=== PATIENT | female | born 1935 | race Caucasian/White ===

== ENCOUNTER 2019-03-28 12:55 | Outpatient (CLI) | payer BC, SELFPAY ==
--- NOTE | 2019-03-28 13:08 | USCV_ITS ---
Ansley Freitas Age: 83 Gender: F : 1935 Exam Date: 03/28/2019 13:08 Ordering Phys: Filemon Rodriguez DPM Technologist: Exam Location: [facility] [place] Indication: PVD RIGHT LEFT Brachial 157.00 mmHg Brachial 149.00 mmHg Pressure (mmHg) Waveform Pressure (mmHg) Waveform 168.00 Above Knee 174.00 187.00 Below Knee 207.00 180.00 RECORDS MANAGER 192.00 167.00 DPA 176.00 1.15 Ankle/Brachial Index 1.22 107.00 Pre-Exercise Toe Pressure 159.00 0.68 Pre-Exercise Toe/Brachial Index 1.01 FINDINGS Normal resting ABIs bilaterally Minimally diminished resting TBI on the right side Normal resting TBI on the left side PVR waveforms showing blunting of the dicrotic notch bilaterally CONCLUSIONS 1. Features of mild peripheral artery disease on the right side 2. No significant arterial obstruction on the left side 3. Abnormal PVR waveforms, may suggest extensive arterial sclerosis Dr Akira Hutchison MD FAC (Electronically Signed) Final Date: 29 March 2019 17:55 S
== END 2019-03-28 12:56 | disposition home or self-care (01) ==
LOC: RAD 13:01
PROVIDERS: Family Provider Family Medicine; PCP Family Medicine; Visit Provider Podiatrist Foot & Ankle Surgery
DX: I73.9 Peripheral vascular disease, unspecified (principal)
CPT/HCPCS: 93923

== ENCOUNTER → 2019-04-02 10:43 | Outpatient (BNVA) | payer BC, SELFPAY | PROVIDERS: Family Provider Family Medicine; PCP Family Medicine; Visit Provider Family Medicine | DX: R74.8 Abnormal levels of other serum enzymes (principal) | CPT/HCPCS: 80076 ==

== ENCOUNTER → 2019-04-03 13:07 | Outpatient (BNVA) | payer BC, SELFPAY | PROVIDERS: Family Provider Family Medicine; PCP Family Medicine; Visit Provider Family Medicine | DX: R74.8 Abnormal levels of other serum enzymes (principal) | CPT/HCPCS: 86705; 86706; 86709; 86803; 87340 ==

== ENCOUNTER 2019-04-04 06:57 | Outpatient (CLI) | payer BC, SELFPAY ==
--- NOTE | 2019-04-04 07:15 | US_ITS ---
WS: [id number] RIGHT UPPER QUADRANT ULTRASOUND HISTORY: ABNORMAL LIVER ENZYMES COMPARISON: 09/28/2011 Liver: 17.7 cm in length. Normal size and echogenicity with no intrahepatic dilatation. No mass. Gallbladder: Normally distended gallbladder with no stones or wall thickening. CBD: 3.4 mm Pancreas: Poorly visualized. Right kidney: 9.9 cm in length. Normal size kidney. Slight increased echogenicity import cortical med ullary differentiation. There is at least one cyst in the central renal pelvis. Suspect additional sm aller cortical cysts also. The largest measures 1.4 x 2.3 cm. Aorta and IVC: Unremarkable. No ascites. US/US liver [id number] IMPRESSION: 1. Normal gallbladder. 2. RIGHT renal cyst with a maximum diameter of 2.3 cm. 3. Mild chronic medical renal disease, RIGHT kidney.
== END 2019-04-04 06:58 | disposition home or self-care (01) ==
LOC: RAD 07:05
PROVIDERS: Family Provider Family Medicine; PCP Family Medicine; Visit Provider Family Medicine
DX: N18.9 Chronic kidney disease, unspecified (principal); N28.1 Cyst of kidney, acquired; R74.8 Abnormal levels of other serum enzymes
CPT/HCPCS: 76705

== ENCOUNTER → 2019-04-16 10:25 | Outpatient (BNVA) | payer BC, SELFPAY | PROVIDERS: Family Provider Family Medicine; PCP Family Medicine; Visit Provider Family Medicine | DX: R74.8 Abnormal levels of other serum enzymes (principal) | CPT/HCPCS: 80076 ==

== ENCOUNTER → 2019-05-23 12:44 | Outpatient (BNVA) | payer MEDICARE, SELFPAY | PROVIDERS: Family Provider Family Medicine; PCP Family Medicine; Visit Provider Family Medicine | DX: R74.8 Abnormal levels of other serum enzymes (principal) | CPT/HCPCS: 80053 ==

== ENCOUNTER → 2019-07-24 12:08 | Outpatient (BNVA) | payer MEDICARE, SELFPAY | PROVIDERS: Family Provider Family Medicine; PCP Family Medicine; Visit Provider Family Medicine | DX: R74.8 Abnormal levels of other serum enzymes (principal) | CPT/HCPCS: 80053 ==

== ENCOUNTER → 2019-09-10 16:43 | Outpatient (BNVA) | payer MEDICARE, SELFPAY | PROVIDERS: Family Provider Family Medicine; PCP Family Medicine; Visit Provider Family Medicine | DX: R89.9 Unspecified abnormal finding in specimens from other organs, systems and tissues (principal); I10 Essential (primary) hypertension; R60.0 Localized edema | CPT/HCPCS: 80053 ==

== ENCOUNTER → 2019-11-06 15:20 | Outpatient (BNVA) | payer MEDICARE, SELFPAY | PROVIDERS: Family Provider Family Medicine; PCP Family Medicine; Visit Provider Nurse Practitioner Women's Health | DX: R30.0 Dysuria (principal) | CPT/HCPCS: 80053; 87077; 87086; 87186 ==

== ENCOUNTER → 2019-12-11 11:17 | Outpatient (BNVA) | payer MEDICARE, SELFPAY | PROVIDERS: Family Provider Family Medicine; PCP Family Medicine; Visit Provider Family Medicine | DX: E11.9 Type 2 diabetes mellitus without complications (principal); E78.5 Hyperlipidemia, unspecified; I10 Essential (primary) hypertension | CPT/HCPCS: 80053; 80061; 83036; 84443; 85025 ==

== ENCOUNTER → 2019-12-17 11:40 | Outpatient (BNVA) | payer MEDICARE, SELFPAY | PROVIDERS: Family Provider Family Medicine; PCP Family Medicine; Visit Provider Family Medicine | DX: R05 Cough (principal) | CPT/HCPCS: 71046 ==

== ENCOUNTER 2020-01-01 21:01 | Observation (INO) | payer MEDICARE, SELFPAY ==
[2020-01-01 21:29] VITALS: BP 142/77; PULSE 76; RESP 18; TEMP 36.4; O2SAT 100; BMI 28.0
--- NOTE | 2020-01-01 21:32 | CTR_ITS ---
PROCEDURE INFORMATION: Exam: CT Head Without Contrast Exam date and time: 01/01/2020 9:35 PM Age: 84 years old Clinical indication: Syncope and collapse TECHNIQUE: Imaging protocol: Computed tomography of the head without contrast. Radiation optimization: All CT scans at this facility use at least one of these dose optimization techniques: automated exposure control; mA and/or kV adjustment per patient size (includes targeted exams where dose is matched to clinical indication); or iterative reconstruction. COMPARISON: No relevant prior studies available. RADIATION DOSE METRICS: Total DLP (mGy-cm): 867.93 FINDINGS: Brain: Normal. No hemorrhage. Unremarkable white matter. No mass effect. Cerebral ventricles: No ventriculomegaly. Bones/joints: Unremarkable. No acute fracture. Paranasal sinuses: Visualized sinuses are unremarkable. No fluid levels. Mastoid air cells: Visualized mastoid air cells are well aerated. Soft tissues: Unremarkable. CT/CT head wo con* [id number] IMPRESSION: Negative for intracranial hemorrhage or mass effect Radiation Dose CTDIVOL = (mGy): DLP = 867.93 (mGy-cm)
--- NOTE | 2020-01-01 21:32 | XRR_ITS ---
PROCEDURE INFORMATION: Exam: XR Chest, 1 View Exam date and time: 01/01/2020 9:59 PM Age: 84 years old Clinical indication: Other: Syncope; Additional info: Syncope-no chest complaints TECHNIQUE: Imaging protocol: XR of the chest Views: 1 view. COMPARISON: CR XR chest 2V* [id number] 12/17/2019 11:47 AM FINDINGS: Lungs: Unremarkable. No consolidation. Pleural space: Unremarkable. No pleural effusion. No pneumothorax. Heart/Mediastinum: Stable heart size. Similar pleural thickening or epicardial fat pad lower left cardiac margin. Vasculature: Calcified thoracic aorta. Bones/joints: Degenerative change of the spine. XR/XR chest 1V portable [id number] IMPRESSION: Stable chest without acute process.
[2020-01-01 21:33] VITALS: BP 123/71; BP 137/74; BP 143/73; PULSE 73; PULSE 74; PULSE 78
--- NOTE | 2020-01-01 21:33 | ECG_ITS ---
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 Measurements Intervals [place] Rate: 71 P: 55 SC: 188 QRS: 37 QRSD: 81 T: 50 QT: 367 QTc: 400 Interpretive Statements SINUS RHYTHM No previous ECG available for comparison Electronically Signed On 01-03-2020 20:37:14 CDT by Telly Mcmahon M.D. [id number]
--- NOTE | 2020-01-01 21:35 | ED_ITS ---
HPI - Syncope General: Chief Complaint: Syncope Stated Complaint: SYNCOPE Time Seen by Provider: 01/01/20 21:27 Source: patient, family and EMS Mode of arrival: EMS Limitations: no limitations History of Present Illness: HPI narrative: Mrs. Freitas is a nice 84-year-old female who comes in complaining of a syncopal episode. Patient states she was at home sitting down at the table and suddenly felt lightheaded and then passed out. Patient did not fall the family observe the incidence and there was no seizure activity. Patient was able to be kept in the seated position but was unconscious for 5 minutes according to the report she received. Since the incident she denies any chest pain, shortness of breath, headache, dizziness, lightheadedness, back pain, abdominal pain or extremity pain. The patient states that she has had numerous syncopal episodes in the past and is never had it evaluated. Patient states that she would not be here now for was not for the insistence of her family. Patient adamantly denies any chest pain, shortness of breath, palpitations or headache. She also denies abdominal pain. Associated symptoms: Deny abdominal pain, chest pain, fever(s), headache(s), lightheadedness, nausea or vertigo Review of Systems Const: Denies: fever(s), chills, body aches, fatigue, malaise or diaphoresis Eyes: Denies: change in vision, blurry vision, photophobia, eye discomfort, eye discharge, eye redness or yellow eyes ENMT: Denies: throat pain, odynophagia, hoarseness, swelling of lips/tongue, ear or mastoid pain, ear discharge, change in hearing or nasal discharge Card: Reports: syncope; Denies: chest pain, palpitations, irregular heart rhythm, edema, lightheadedness, pre-syncope, dyspnea on exertion or orthopnea Resp: Denies: dyspnea, productive cough, non-productive cough, wheezing, hemoptysis or chest congestion GI: Denies: abdominal pain, nausea, vomiting, hematemesis, coffee ground emesis, heartburn, diarrhea, constipation, GI cramping, hematochezia or melena : Denies: flank pain, dysuria, urinary frequency, urinary urgency or hematuria Musc: Denies: neck pain, back pain, extremity pain, extremity swelling, joint pain, joint swelling, joint redness, joint warmth or joint stiffness Skin/Breast: Denies: rash, pruritus, erythema, skin pain or skin tenderness Neuro: Reports: dizziness; Denies: headache(s), numbness in extremities, weakness in extremities, sensory changes, lack of coordination, difficulty walking, vertigo, confusion, Slurred speech present or seizure-like activity William/Lymph: Denies: easy bruising, easy bleeding, petechiae, purpura or enlarged lymph nodes All/Imm: Denies: urticaria, throat swelling, tongue swelling, facial swelling or acute wheezing PFSH ED PFSH: Medical History Acquired hypothyroidism Arteriosclerotic vascular disease Chronic depression Chronic pain syndrome Contact dermatitis Controlled restless legs syndrome Cystocele Diverticulosis Dyslipidemia Esophageal dysmotility Essential (primary) hypertension Fatty liver Hammertoe of right foot Neuropathy Obstructive sleep apnea Parkinson's disease Peripheral arterial disease Prolapse of vaginal vault after hysterectomy Type 2 diabetes mellitus without complications Surgical History H/O ovarian cystectomy (~1959) History of bladder repair surgery (~1999) Ring urethropexy History of hernia repair (~01/2008) History of total hysterectomy (~1969) Diagnosis: Endometriosis Family History Brother CAD (coronary artery disease) Diabetes Father Diabetes Sister No problems noted. Mother Cancer Social History Smoking and tobacco status: never smoked Alcohol intake: never History of recent travel: No Additional social history: - Tobacco use: Denies Alcohol use: Denies Drug use: Denies Physical Exam Const: COMMON NORMALS: no acute distress, patient oriented x3, no limitations and alert GENERAL APPEARANCE: cooperative HENMT: COMMON NORMALS: normocephalic, atraumatic, external ears normal, EAC's normal and Normal external nose present HEAD & SCALP: normal to inspection, normocephalic and atraumatic FACE & SINUS: normal facial exam and face symmetric NOSE: Normal external nose present and Normal nares present EXTERNAL EAR: Yes external ears normal EXTERNAL AUDITORY CANAL: EAC's normal MOUTH: Normal oral and palatal mucosa present, lip normal and tongue normal Eye: COMMON NORMALS: Equal, round and reactive pupils present and conjunctivae normal GENERAL EYE: appearance normal, both eyes and all related structures ALIGNMENT: Yes alignment normal PERIORBITAL: periorbital findings normal EYELID: eyelids normal CONJUNCTIVA: Yes conjunctivae normal SCLERA: sclerae normal PUPIL: Yes Equal, round and reactive pupils present Neck/C-Spine: COMMON NORMALS: full ROM, no lymphadenopathy, supple, no meningeal signs and no JVD GENERAL: Yes normal visual inspection and Yes trachea midline Chest: COMMONS NORMALS: normal inspection of the chest and normal palpation of entire chest wall Resp: COMMON NORMALS: normal respiratory effort, No retractions, No use of accessory muscles and clear to auscultation bilaterally EFFORT & INSPECTION: Yes able to speak in complete sentences and Yes symmetric chest movement AUSCULTATION: clear to auscultation bilaterally, no crackles, no rales, no rhonchi and no wheezes Cardio: COMMON NORMALS: no JVD, regular rate, regular rhythm, S1 normal heart sound present and S2 normal heart sound present RATE: regular rate RHYTHM: regular rhythm HEART SOUNDS: S1 normal heart sound present, S2 normal heart sound present, no click, no gallops, Murmur heart sound present systolic and no rubs GI: COMMON NORMALS: Soft to palpation and No hepatosplenomegaly present PALPATION: Yes Soft to palpation, No Tenderness to palpation present (GI), No Guarding due to palpation present (GI), No Rigid due to palpation, Yes No hepatosplenomegaly present, No Hernia present, No Palpable mass present and No Pulsatile mass present : COMMON NORMALS: Yes no CVA tenderness BLADDER/KIDNEY EXAM: Yes no CVA tenderness EXTERNAL FEMALE EXAM: No Hernia present Back/Pelvis: COMMON NORMALS: no CVA tenderness, thoracic and lumbar spine normal to inspection, no thoracic nor lumbar tenderness and thoraco-lumbar ROM normal Extremity: COMMON NORMALS: normal to inspection, full ROM, capillary refill normal, no joint enlargement, no clubbing, cyanosis or edema and no calf tenderness Neuro: COMMON NORMALS: patient oriented x3, CN's II-XII intact bilaterally, moves all extremities, no focal motor deficits and no sensory deficits noted SENSORIUM/ORIENTATION: Yes alert MENINGEAL SIGNS: Yes no meningeal signs SPEECH: speech normal Psych: COMMON NORMALS: mental status grossly normal, Normal thought process present, cooperative, normal affect, speech normal and activity/motor behavior normal SPEECH: Yes normal speech THOUGHT PROCESS: Normal thought process present Skin: COMMON NORMALS: no rashes or lesions noted, turgor normal, no jaundice, no petechiae and no mottling GENERAL SKIN EXAM: no rashes or lesions noted and turgor normal Course ED course: 2151 -EKG concern of ST elevation inferiorly and precordial leads s hared with Dr. Mcmahon, he is aware we have no old EKG for comparison. He wants to follow serial EKGs as the patient is asymptomatic at this time. 2329 -repeat EKGs and troponin result reviewed with Dr. Mcmahon. Patient still not having pain. He like the patient admitted to the hospitalist service and he will consult. Still does not believe there is evidence of STEMI at this time. Vital Signs: Vital signs: Vital Signs Temperature 98.0 F 01/02/20 04:00 Pulse Rate 75 01/02/20 04:00 Respiratory Rate 13 01/02/20 04:00 Blood Pressure 142/96 01/02/20 04:00 Pulse Oximetry 98 01/02/20 04:00 MDM - Syncope MDM Narrative: Medical decision making narrative: With results of the EKGs and troponins I have reviewed the case with Dr. Mcmahon and Dr. Ricks, they will c onsult and admit respectively. The patient is still asymptomatic and feels fine. We will see what her second troponin results as and notify Dr. Mcmahon if necessary. This time the patient is resting comfortably and has no complaints or concerns. Lab Data: Attestation: I reviewed the patient's lab results. Labs: Lab Results 01/01/20 01/01/20 01/01/20 Range/Units 22:30 22:30 22:30 WBC 7.1 (4.0-10.0) 10^3/ uL RBC 3.66 L (4.1-5.3) 10^6/u L Hgb 11.2 L (11.5-15.3) g/dL Hct 34.8 L (37.0-47.0) % MCV 95.1 (81-99) fL MCH 30.6 (28.0-34.0) pg MCHC 32.2 (30.0-36.0) g/dL RDW 13.2 (12.1-15.1) % Plt Count 282 (130-400) 10^3/c mm MPV 9.8 (7.4-10.4) fL Neut % (Auto) 68.1 % Lymph % (Auto) 18.9 % Fountain % (Auto) 8.5 % Eos % (Auto) 3.5 % Baso % (Auto) 0.7 % Neut # (Auto) 4.84 (1.8-7.7) 10^3/u L Lymph # (Auto) 1.3 (0.8-4.8) 10^3/u L Fountain # (Auto) 0.6 (0.2-0.9) 10^3/u L Eos # (Auto) 0.3 (0.0-0.8) 10^3/u L Baso # (Auto) 0.1 (0.0-0.1) 10^3/u L Nucleated RBC % (a uto) 0 % Nucleated RBCs # 0.0 /100WBC PT 13.00 (12.1-14.9) SECO NDS INR 0.96 (0.8-1.2) Sodium 134 L (136-145) mmol/L Potassium 4.4 (3.5-5.1) mmol/L Chloride 96 L (98-107) mmol/L Carbon Dioxide 26 (22-29) mmol/L Anion Gap 16.4 (5-19) BUN 43 H (8-23) mg/dL Creatinine 2.6 H (0.5-0.9) mg/dL GFR Calculation Not Reportable Glucose 110 (65-115) mg/dL Calculated Osmolal ity 289 (285-295) mOsm/k g Lactic Acid (0.5-2.2) mmol/L Calcium 10.3 (8.5-10.5) mg/dL Magnesium 2.1 (1.7-2.3) mg/dL Total Bilirubin 0.2 (0.15-1.2) mg/dL AST 15 (0-32) U/L ALT 13 (0-33) U/L Alkaline Phosphata se 107 H (35-105) IU/L Troponin T Baselin e (0-10) ng/L Troponin T 120 Min [place] (0-10) ng/L Delta Troponin T (0-10) ABS# NT-Pro-B Natriuret Pep 165 (0-450) pg/mL Total Protein 7.0 (6.6-8.7) g/dL Albumin 4.6 (3.5-5.2) g/dL Globulin 2.4 (1.3-4.6) g/dL Free T4 1.40 (0.82-1.77) ng/d L Urine Color (Yellow) Urine Appearance (CLEAR) Urine pH (5-7) Ur Specific Gravit y (1.005-1.030) Urine Protein (Negative) Urine Glucose (UA) (Normal) Urine Ketones (Negative) Urine Blood (Negative) Urine Nitrate (Negative) Urine Bilirubin (Negative) Urine Urobilinogen (Negative) mg/dL Ur Leukocyte Stefanie ase (Negative) Urine RBC (0-2) /hpf Urine WBC (0-5) /hpf Ur Squamous Epith Cells (0-5) /hpf Amorphous Sediment /hpf Urine Bacteria (NONE) /hpf Hyaline Casts /lpf Urine Mucus /hpf 01/01/20 01/01/20 01/01/20 Range/Units 22:30 22:30 22:34 WBC (4.0-10.0) 10^3/ uL RBC (4.1-5.3) 10^6/u L Hgb (11.5-15.3) g/dL Hct (37.0-47.0) % MCV (81-99) fL MCH (28.0-34.0) pg MCHC (30.0-36.0) g/dL RDW (12.1-15.1) % Plt Count (130-400) 10^3/c mm MPV (7.4-10.4) fL Neut % (Auto) % Lymph % (Auto) % Fountain % (Auto) % Eos % (Auto) % Baso % (Auto) % Neut # (Auto) (1.8-7.7) 10^3/u L Lymph # (Auto) (0.8-4.8) 10^3/u L Fountain # (Auto) (0.2-0.9) 10^3/u L Eos # (Auto) (0.0-0.8) 10^3/u L Baso # (Auto) (0.0-0.1) 10^3/u L Nucleated RBC % (a uto) % Nucleated RBCs # /100WBC PT (12.1-14.9) SECO NDS INR (0.8-1.2) Sodium (136-145) mmol/L Potassium (3.5-5.1) mmol/L Chloride (98-107) mmol/L Carbon Dioxide (22-29) mmol/L Anion Gap (5-19) BUN (8-23) mg/dL Creatinine (0.5-0.9) mg/dL GFR Calculation Glucose (65-115) mg/dL Calculated Osmolal ity (285-295) mOsm/k g Lactic Acid 2.1 (0.5-2.2) mmol/L Calcium (8.5-10.5) mg/dL Magnesium (1.7-2.3) mg/dL Total Bilirubin (0.15-1.2) mg/dL AST (0-32) U/L ALT (0-33) U/L Alkaline Phosphata se (35-105) IU/L Troponin T Baselin e 26 H (0-10) ng/L Troponin T 120 Min [place] (0-10) ng/L Delta Troponin T (0-10) ABS# NT-Pro-B Natriuret Pep (0-450) pg/mL Total Protein (6.6-8.7) g/dL Albumin (3.5-5.2) g/dL Globulin (1.3-4.6) g/dL Free T4 (0.82-1.77) ng/d L Urine Color Yellow (Yellow) Urine Appearance Clear (CLEAR) Urine pH 5 (5-7) Ur Specific Gravit y 1.010 (1.005-1.030) Urine Protein Neg (Negative) Urine Glucose (UA) Norm (Normal) Urine Ketones Negative (Negative) Urine Blood Neg (Negative) Urine Nitrate Negative (Negative) Urine Bilirubin Neg (Negative) Urine Urobilinogen Norm (Negative) mg/dL Ur Leukocyte Stefanie ase Negative (Negative) Urine RBC Rare (0-2) /hpf Urine WBC 0-4 H (0-5) /hpf Ur Squamous Epith Cells 0-4 H (0-5) /hpf Amorphous Sediment Trace /hpf Urine Bacteria 1+ H (NONE) /hpf Hyaline Casts 10-15 H /lpf Urine Mucus Trace /hpf 12/31/ Range/Units 23:44 WBC (4.0-10.0) 10^3/ uL RBC (4.1-5.3) 10^6/u L Hgb (11.5-15.3) g/dL Hct (37.0-47.0) % MCV (81-99) fL MCH (28.0-34.0) pg MCHC (30.0-36.0) g/dL RDW (12.1-15.1) % Plt Count (130-400) 10^3/c mm MPV (7.4-10.4) fL Neut % (Auto) % Lymph % (Auto) % [place] % (Auto) % Eos % (Auto) % Baso % (Auto) % Neut # (Auto) (1.8-7.7) 10^3/u L Lymph # (Auto) (0.8-4.8) 10^3/u L [place] # (Auto) (0.2-0.9) 10^3/u L Eos # (Auto) (0.0-0.8) 10^3/u L Baso # (Auto) (0.0-0.1) 10^3/u L Nucleated RBC % (a uto) % Nucleated RBCs # /100WBC PT (12.1-14.9) SECO NDS INR (0.8-1.2) Sodium (136-145) mmol/L Potassium (3.5-5.1) mmol/L Chloride (98-107) mmol/L Carbon Dioxide (22-29) mmol/L Anion Gap (5-19) BUN (8-23) mg/dL Creatinine (0.5-0.9) mg/dL GFR Calculation Glucose (65-115) mg/dL Calculated Osmolal ity (285-295) mOsm/k g Lactic Acid (0.5-2.2) mmol/L Calcium (8.5-10.5) mg/dL Magnesium (1.7-2.3) mg/dL Total Bilirubin (0.15-1.2) mg/dL AST (0-32) U/L ALT (0-33) U/L Alkaline Phosphata se (35-105) IU/L Troponin T Baselin e (0-10) ng/L Troponin T 120 Min [place] 25.45 H (0-10) ng/L Delta Troponin T -0.55 L (0-10) ABS# NT-Pro-B Natriuret Pep (0-450) pg/mL Total Protein (6.6-8.7) g/dL Albumin (3.5-5.2) g/dL Globulin (1.3-4.6) g/dL Free T4 (0.82-1.77) ng/d L Urine Color (Yellow) Urine Appearance (CLEAR) Urine pH (5-7) Ur Specific Gravit y (1.005-1.030) Urine Protein (Negative) Urine Glucose (UA) (Normal) Urine Ketones (Negative) Urine Blood (Negative) Urine Nitrate (Negative) Urine Bilirubin (Negative) Urine Urobilinogen (Negative) mg/dL Ur Leukocyte Stefanie ase (Negative) Urine RBC (0-2) /hpf Urine WBC (0-5) /hpf Ur Squamous Epith Cells (0-5) /hpf Amorphous Sediment /hpf Urine Bacteria (NONE) /hpf Hyaline Casts /lpf Urine Mucus /hpf Imaging Data^: CXR: Attestation: I personally reviewed and interpreted this imaging study as follows: My impression: No acute cardiopulmonary findings. EKG Data^: EKG 1: Attestation: I personally reviewed and interpreted this EKG as follows: EKG interpretation date: 01/02/20 EKG interpretation time: 21:40 Interpretation: Normal sinus rhythm at 71 beats a minute, mild ST segment elevation II, III and aVF. ST segment elevation present in V3 through V6. T wave inversion in V2. No old for comparison. EKG 2: Attestation: I personally reviewed and interpreted this EKG as follows: EKG interpretation date: 01/02/20 EKG interpretation time: 23:18 Interpretation: Normal sinus rhythm at 72 beats a minute, ST elevation inferiorly and V3 through V6. T wave inversions in V2. Unchanged from previous. EKG 3: Attestation: I personally reviewed and interpreted this EKG as follows: EKG interpretation date: 01/02/20 EKG interpretation time: 22:09 Interpretation: Normal sinus rhythm at 81 beats a minute, ST segment elevation inferiorly and V3 through V6. To inversions V2. Unchanged from previous. Discharge Plan Discharge Patient Disposition: Admitted As Inpatient Admit Provider: Ramona Ricks Clinical Impression: Cardiac murmur, Acute kidney injury Syncope Qualifiers: Syncope type: unspecified Qualified Code(s): R55 - Syncope and collapse Condition: Stable Discharge Date/Time: 01/02/20 02:10 Coding Level of Care Code ED [employer] for Chg Fwd Exam Comprehensive
[2020-01-01 21:41] VITALS: BP 142/77; PULSE 75; TEMP 36.4; O2SAT 98
[2020-01-01 22:49] LABS: Basophils # 0.1 10^3/uL (0.0-0.1); Basophils % 0.7 %; Eosinophils # 0.3 10^3/uL (0.0-0.8); Eosinophils % 3.5 %; Hematocrit 34.8 % (37.0-47.0); Hemoglobin 11.2 g/dL (11.5-15.3); Lymphocytes # 1.3 10^3/uL (0.8-4.8); Lymphocytes % 18.9 %; Mean Corpuscular HGB Conc 32.2 g/dL (30.0-36.0); Mean Corpuscular Hemoglobin 30.6 pg (28.0-34.0); Mean Corpuscular Volume 95.1 fL (81-99); Mean Platelet Volume 9.8 fL (7.4-10.4); Monocytes # 0.6 10^3/uL (0.2-0.9); Monocytes % 8.5 %; Neutrophils # 4.84 10^3/uL (1.8-7.7); Neutrophils % 68.1 %; Nucleated Red Blood Cells % 0 %; Platelet Count 282 10^3/cmm (130-400); Red Blood Count 3.66 10^6/uL (4.1-5.3); Red Cell Distribution Width 13.2 % (12.1-15.1); White Blood Count 7.1 10^3/uL (4.0-10.0)
[2020-01-01 23:06] LABS: Bilirubin Urine Neg (Negative); Blood Urine Neg (Negative); Glucose Urine UA Norm (Normal); Ketones Urine Negative (Negative); Leukocyte Esterase Urine Negative (Negative); Nitrate Urine Negative (Negative); Protein Urine Neg (Negative); Urine Appearance Clear (CLEAR); Urine Color Yellow (Yellow); Urobilinogen Urine Norm (Negative); pH Urine 5 (5-7)
[2020-01-01 23:06] LABS: INR 0.96 (0.8-1.2)
[2020-01-01 23:08] LABS: Add Urine Culture? No; Amorphous Sediment Urine TRACE /hpf; Bacteria Urine 1+ /hpf; Mucus Urine TRACE /hpf; RBC Urine RARE /hpf (0-2); Squamous Epithelial Cell Urine 0-4 /hpf (0-5); WBC Urine 0-4 /hpf (0-5)
[2020-01-01 23:13] LABS: Lactic Sepsis W/Reflex 2.1 mmol/L (0.5-2.2)
[2020-01-01 23:16] LABS: Troponin(5th) Baseline 26 ng/L (0-10)
[2020-01-01 23:25] LABS: Alanine Aminotransferase 13 U/L (0-33); Albumin Level 4.6 g/dL (3.5-5.2); Alkaline Phosphatase 107 IU/L (35-105); Anion Gap 16.4 (5-19); Aspartate Amino Transferase 15 U/L (0-32); Blood Urea Nitrogen 43 mg/dL (8-23); Calcium 10.3 mg/dL (8.5-10.5); Carbon Dioxide 26 mmol/L (22-29); Chloride 96 mmol/L (98-107); Globulin 2.4 g/dL (1.3-4.6); Glucose 110 mg/dL (65-115); Magnesium 2.1 mg/dL (1.7-2.3); NT Pro B Type Natriuretic Pept 165 pg/mL (0-450); Osmolality Calculated 289 mOsm/kg (285-295); Potassium 4.4 mmol/L (3.5-5.1); Sodium 134 mmol/L (136-145); Total Bilirubin 0.2 mg/dL (0.15-1.2)
[2020-01-01 23:33] VITALS: BP 150/75; PULSE 75; RESP 13; O2SAT 100
--- NOTE | 2020-01-01 23:33 | ECG_ITS ---
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 Measurements Intervals [place] Rate: 81 P: 62 MA: 183 QRS: 52 QRSD: 90 T: 64 QT: 355 QTc: 413 Interpretive Statements SINUS RHYTHM Compared to ECG 01/01/2020 21:40:30 No significant changes Electronically Signed On 01-03-2020 20:55:19 CDT by Telly Mcmahon M.D. [id number]
[2020-01-02] VITALS (8 sets, daily range): BP systolic 116–167; BP diastolic 50–96; PULSE 67–94; RESP 12–18; TEMP 36.6–36.7; O2SAT 94–100
--- NOTE | 2020-01-02 | P.HP_ITS ---
Providers/Chief Complaint Primary Care Provider: Stephanie Rincon MD Chief Complaint: SYNCOPE History of Present Illness Ansley Freitas is a 84 year old female who carries a history of Parkinson's disease, acquired hypothyroidism, dyslipidemia, Diabetes, came in today after an syncopal event. Patient is stating that she was having dinner with her family, she started noticing pressure-like sensation in her ears bilaterally, after few seconds she told her family members that she is going to pass out. She passed out for about 5 to 10 minutes, her family members kept her in sitting position in her chair to protect her airways, once EMS arrived she started throwing up, she has been to episode of emesis, family members also noticed some rigors upper extremities before she regained her consciousness. After regaining consciousness she was not confused, she was able to ask family members about the situation, no slurring of speech was noticed or facial asymmetry was observed. Patient is denying chest pain, shortness of breath, palpitations before this event. She has never had this kind of syncopal event before. She took shower before her dinner and attributed water in her ear for the cause of popping sensation in her ear. Of note, patient has recently started using 60 mg of Lasix instead of 20 mg for her congestive heart failure and lymphedema. She spent most of her day outside and did not drink adequate fluids today. Diagnosis in the ER revealed normal hemodynamics, normal blood sugar, normal CBC and BMP, ANOOP, negative delta troponin, normal TSH, concentrated urine, unremarkable CT head, unremarkable chest x-ray, EKG shows T wave inversion lead V2 and nonspecific changes of inferior leads, EKG has been reviewed by magnetic resonance imaging director Dr. Mcmahon as well who has recommended monitoring with serial EKGs and troponin for now. At the time my evaluation NIH 0, awake alert x3, no active chest pain or any active discomfort. Review of Systems Const: Denies: fever(s), chills, body aches or fatigue Eyes: Denies: change in vision ENMT: Denies: throat pain Card: Reports: swelling of feet/ankles and syncope; Denies: dyspnea on exertion or orthopnea Resp: Denies: dyspnea GI: Denies: abdominal pain : Denies: flank pain Musc: Denies: neck pain Skin/Breast: Denies: rash Neuro: Denies: headache(s) Psych: Denies: anxiety Endo: Denies: polyuria William/Lymph: Denies: easy bruising All/Imm: Denies: urticaria Medications/Allergies Home Medications Medication Instructions Recorded Confirmed Last Taken Type ascorbic acid (vitamin C) 500 mg 500 mg PO TID cap 03/19/19 12/31/19 Unknown History capsule aspirin 81 mg tablet,delayed 81 mg PO ONCE 03/19/19 12/31/19 Unknown History release cholecalciferol (vitamin D3) 250 10,000 unit PO ONCE 03/19/19 12/31/19 Unknown History mcg (10,000 unit) capsule ferrous gluconate 325 mg (36 mg 325 mg PO BID tab 03/19/19 12/31/19 Unknown History iron) tablet albuterol sulfate 90 mcg/actuation 2 puff INHALATION Q6H PRN #18 gm 09/24/19 12/31/19 Unknown Rx aerosol inhaler amitriptyline 10 mg tablet 30 mg PO .HS #270 tab 09/24/19 12/31/19 Unknown Rx furosemide 20 mg tablet 20 mg PO DAILY #90 tab 09/24/19 12/31/19 Unknown Rx gabapentin 300 mg capsule 300 mg PO .am and at noon #180 cap 09/24/19 12/31/19 Unknown Rx gabapentin 600 mg tablet 600 mg PO .hs #90 tab 09/24/19 12/31/19 Unknown Rx lisinopril 20 mg tablet 20 mg PO BID #180 tab 09/24/19 12/31/19 Unknown Rx metoprolol succinate 25 mg 25 mg PO BID #180 tab 09/24/19 12/31/19 Unknown Rx tablet,extended release 24 hr potassium chloride 10 mEq 10 meq PO DAILY #90 tab 09/24/19 12/31/19 Unknown Rx tablet,extended release ropinirole 0.25 mg tablet 0.25 mg PO TID #720 tab 10/03/19 12/31/19 Unknown Rx levothyroxine 100 mcg tablet 100 mcg PO DAILY #90 tab 10/08/19 12/31/19 Unknown Rx metformin 500 mg tablet,extended 500 mg PO BID #180 tab 10/08/19 12/31/19 Unknown Rx release 24 hr estradiol 0.5 gm VAGINAL .twice/week #42.5 gm 10/23/19 12/31/19 Unknown Rx Allergies Allergy/AdvReac Type Severity Reaction Status Date / Time Iodinated Contrast Media Allergy Severe fanting Verified 12/31/19 11:24 nitrofurantoin Allergy Mild rash Verified 12/31/19 11:24 [From Macrodantin] Sulfa (Sulfonamide Allergy Mild rash Verified 12/31/19 11:24 Antibiotics) tetanus toxoid, adsorbed Allergy Mild rash Verified 12/31/19 11:24 tetracycline Allergy Mild rash Verified 12/31/19 11:24 PFSH Acute PFSH: Medical History Acquired hypothyroidism Arteriosclerotic vascular disease Chronic depression Chronic pain syndrome Contact dermatitis Controlled restless legs syndrome Cystocele Diverticulosis Dyslipidemia Esophageal dysmotility Essential (primary) hypertension Fatty liver Hammertoe of right foot Neuropathy Obstructive sleep apnea Parkinson's disease Peripheral arterial disease Prolapse of vaginal vault after hysterectomy Type 2 diabetes mellitus without complications Surgical History H/O ovarian cystectomy (~1959) History of bladder repair surgery (~1999) Ring urethropexy History of hernia repair (~01/2008) History of total hysterectomy (~1969) Diagnosis: Endometriosis Family History Brother CAD (coronary artery disease) Diabetes Father Diabetes Sister No problems noted. Mother Cancer Social History Smoking and tobacco status: never smoked Alcohol intake: never History of recent travel: No Additional social history: - Tobacco use: Denies Alcohol use: Denies Drug use: Denies Vitals/I&O/Wt Last Vital Signs Temp 97.5 F L 01/01/20 21:41 Pulse 75 01/01/20 23:33 Resp 13 01/01/20 23:33 BP 150/75 01/01/20 23:33 Pulse Ox 100 01/01/20 23:33 Weight last 48 hrs Weight 78.925 kg Physical Exam Narrative: EXAM NARRATIVE: Elderly female sitting comfortably in her bed Saturating well on room air, cooperative S1, S2 no tachycardia or murmur appreciated, no JVD or carotid bruit appreciated Lungs are clear to auscultation no adventitious sounds Abdomen soft nontender bowel sounds present, mild distention of abdomen Neurologically no focal deficit, NIH 0 EOMI, PERRLA No lower extremity gangrene ulcer however venous stasis dermatitis, lymphedema, nonpitting edema, skin wrinkling evident Clinically looks dehydrated Appropriate mood and affect Dry mucous membrane Data : 01/01/20 22:30 01/01/20 22:30 A&P Assessment and plan (1) Syncope: Status: Acute (2) Acute kidney injury superimposed on chronic kidney disease: Status: Acute (3) Syncope: Status: Acute Qualifiers: Syncope type: unspecified Qualified Code(s): R55 - Syncope and collapse (4) Dehydration: Status: Acute Additional A&P Information Syncopal event Lasix dose has been increased from 20 mg to 60 mg recently, patient clinically is dry with skin wrinkling and dried mucous membranes EKG showing T wave inversion in lead V2 with nonspecific changes in inferior leads, no significant delta troponin, EKG has been reviewed by magnetic resonance imaging director, monitor with serial EKGs and troponin for now Echo in the morning, TSH is normal, I have requested D-dimer which came back high, will get VQ scan Patient has received fluids, it will be an futile effort to check orthostatics now Hold Lasix, resuscitate with fluids for about 3 to 4 hours with normal saline and then discontinue No signs of stroke Acute on chronic kidney disease Baseline creatinine seems to be around 1.5-1.7, current creatinine 2.6 Which I believe is secondary to dehydration with recent increase in Lasix, avoid nephrotoxic agents, discontinue amitriptyline, lisinopril and Metformin Fraction excretion of sodium will not be helpful due to Lasix use We will check renal ultrasound to rule out hydronephrosis Restless leg syndrome: Continue ropinirole Obstructive sleep apnea: CPAP with auto titration Hypothyroidism: TSH normal, continue levothyroxine home regimen Type 2 diabetes: Continue moderate sliding scale Full code Cardiac diet DVT prophylaxis Heparin Attestations Medical Necessity Statement*: Anticipating discharge in less than 48 hours needs investigation for syncopal event Time Spent in Patient Care: (>than 50% of time spent in counselling and/or direct pt care on unit) . 40mins Coding Level of Care Code Acute Gis Physical Scientist for g Fwd Diagnoses Syncope R55 Acute kidney injury superimposed on chronic kidney disease N17.9; N18.9 Syncope R55 Syncope type: unspecified Dehydration E86.0
[2020-01-02 00:19] LABS: Troponin 5 2HR 25.45 ng/L (0-10)
[2020-01-02 00:23] LABS: Troponin 5 2HR Delta -0.55 ABS# (0-10)
[2020-01-02 00:34] LABS: Reflex Lactate Order REFLEX LACTIC ORDERD
[2020-01-02 00:41] LABS: D Dimer 1.33 ug/mIFEU (0-0.59)
[2020-01-02 01:13] LABS: Lactic Acid level (Lactate) 2.2 mmol/L (0.5-2.2)
--- NOTE | 2020-01-02 02:26 | NM_ITS ---
WS: [id number] NUCLEAR MEDICINE VENTILATION/PERFUSION LUNG SCAN HISTORY: Rule out PE COMPARISON: None available. TECHNIQUE: Ventilation: 32.7 mCi of Technetium 99 DTPA aerosol inhaled. Perfusion: 5.4 mCi of technetium 99m MAA IV. Mild blunting of the LEFT costophrenic angle is matched defect. Very slightly patchy and heterogeneou s deposition of radionuclide on perfusion and ventilation. There are no unmatched defects. NM/NM pul vent and perfus* [id number] IMPRESSION: Low probability pulmonary embolism.
--- NOTE | 2020-01-02 02:26 | USCV_ITS ---
Ansley Freitas Age: 84 Gender: F : 1935 Exam Date: 01/02/2020 06:00 Ordering Phys: Ramona Ricks MD Technologist: Malathi Vargas Exam Location: [facility] Indication: WALL MOTION ABNORMALITY SYNCOPE BP: 142 / 86 HR: 67 Rhythm: Sinus Technical Quality: Adequate MEASUREMENTS (Male / Female) Normal Values 2D ECHO LV Diastolic Diameter PLAX 3.5 cm 4.2 - 5.9 / 3.9 - 5.3 cm LV Systolic Diameter PLAX 2.6 cm LV Chamber Size 3.3 cm IVS Diastolic Thickness 1.1 cm 0.6 - 1.0 / 0.6 - 0.9 cm IVS Systolic Thickness 1.7 cm LVPW Diastolic Thickness 1.1 cm 0.6 - 1.0 / 0.6 - 0.9 cm LVPW Systolic Thickness 1.8 cm RV Chamber Size 2.9 cm LVOT Diameter 2.0 cm LV Ejection Fraction 2D Teich 51.4 % LV Ejection Fraction MOD 2C 44.3 % LV Ejection Fraction 2C AL 52.1 % LA Diameter 2.5 cm LA Width 3.1 cm LA Height 4.4 cm RA Width 2.5 cm RA Height 3.8 cm Aorta at Sinotubular Diameter 3.1 cm M-MODE LV Diastolic Diameter MM 3.7 cm 4.2 - 5.9 / 3.9 - 5.3 cm LV Systolic Diameter MM 2.2 cm LV Ejection Fraction MM Teich 72.9 % IVS Diastolic Thickness MM 0.9 cm 0.6 - 1.0 / 0.6 - 0.9 cm IVS Systolic Thickness MM 1.3 cm LVPW Diastolic Thickness MM 1.0 cm 0.6 - 1.0 / 0.6 - 0.9 cm LVPW Systolic Thickness MM 1.2 cm RV Diastolic Diameter MM 0.8 cm Aortic Annulus Diameter 3.1 cm LA Ao Ratio MM 0.9 MV E Point Septal Separation 0.5 cm DOPPLER AV Peak Velocity 173.0 cm/s LVOT Peak Velocity 86.0 cm/s AV Area Cont Eq vti 1.9 cm squared AV Area Cont Eq pk 1.6 cm squared MV Area PHT 4.6 cm squared Mitral E to A Ratio 0.9 MV E' Velocity 45.5 cm/s Mitral E to MV E' Ratio 8.7 Mitral E to LV E' Lateral Ratio 8.6 Mitral E to LV E' Septal Ratio 9.0 TR Peak Velocity 137.8 cm/s TR Peak Gradient 7.6 mmHg TR Mean Velocity 92.5 cm/s TR Mean Gradient 4.0 mmHg TR Velocity Time Integral 34.7 cm TV Peak E Velocity 74.0 cm/s Right Atrial Pressure 3.0 mmHg Pulmonary Artery Systolic Pressu 10.6 mmHg PV Peak Velocity 72.0 cm/s RV Acceleration Time 0.1 s RV Ejection Time 0.4 s RV AcT/ET 0.4 FINDINGS Left Ventricle Normal left ventricular size, systolic function and wall thickness, with no regional wall motion abnormalities. LVEF is 60 to 65%. Normal left ventricular wall thickness. Normal diastolic filling pattern. Right Ventricle The right ventricle is normal in size and function. Right Atrium The right atrium is normal in size. Left Atrium The left atrium is normal in size. Mitral Valve Structurally normal mitral valve without significant stenosis or prolapse. There is trace mitral regurgitation. Aortic Valve Structurally normal aortic valve without significant sclerosis or stenosis. There is no aortic regurgitation. Tricuspid Valve Structurally normal tricuspid valve without significant stenosis or regurgitation. Insufficient TR jet to calculate RVSP. Pulmonic Valve Structurally normal pulmonic valve without significant stenosis. There is no pulmonic regurgitation. Pericardium Normal pericardium without effusion. Aorta Normal ascending aorta dimension. CONCLUSIONS LV systolic function is normal with EF of 60 to 65%. Normal diastolic function. No significant valvular heart disease is noted. No comparison studies are available. Telly Mcmahon MD (Electronically Signed) Final Date: 02 January 2020 12:57 S
[2020-01-02] MEDS: sodium chloride 0.9% 1,000 ML 30 ML IV (02:47)
[2020-01-02] MEDS: heparin 5,000 unit/mL INJ 1 mL 5000 UNIT SUBCUT ×3 (02:50→18:42)
[2020-01-02] MEDS: aspirin 81 mg EC Tablet PO (02:55)
--- NOTE | 2020-01-02 03:15 | PC.NURSE ---
Patient arrived to [facility] at 0227 from ED. Patient is alert and orientated. Patient is complaint with cares and staff and very friendly. Call light is within reach. Continue care.
[2020-01-02] MEDS: ropinirole 0.25 mg Tablet PO (04:28)
[2020-01-02 05:01] LABS: Basophils % 0.6 %; Eosinophils # 0.3 10^3/uL (0.0-0.8); Eosinophils % 4.7 %; Hematocrit 31.2 % (37.0-47.0); Lymphocytes # 2.3 10^3/uL (0.8-4.8); Lymphocytes % 35.5 %; Mean Corpuscular HGB Conc 32.1 g/dL (30.0-36.0); Mean Corpuscular Hemoglobin 30.4 pg (28.0-34.0); Mean Corpuscular Volume 94.8 fL (81-99); Monocytes # 0.6 10^3/uL (0.2-0.9); Monocytes % 9.4 %; Neutrophils # 3.15 10^3/uL (1.8-7.7); Neutrophils % 49.5 %; Nucleated Red Blood Cells % 0 %; Platelet Count 239 10^3/cmm (130-400); Red Blood Count 3.29 10^6/uL (4.1-5.3); Red Cell Distribution Width 13.2 % (12.1-15.1); White Blood Count 6.4 10^3/uL (4.0-10.0)
[2020-01-02 05:28] LABS: Troponin 5 6HR 25.57 ng/L (0-10)
[2020-01-02 05:33] LABS: Anion Gap 16.2 (5-19); Blood Urea Nitrogen 45 mg/dL (8-23); Calcium 9.8 mg/dL (8.5-10.5); Carbon Dioxide 25 mmol/L (22-29); Chloride 100 mmol/L (98-107); Glucose 106 mg/dL (65-115); Osmolality Calculated 296 mOsm/kg (285-295); Potassium 4.2 mmol/L (3.5-5.1); Sodium 137 mmol/L (136-145)
[2020-01-02 05:34] LABS: Troponin 5 6HR Delta -0.43 ng/L (0-12)
[2020-01-02 07:04] LABS: Glucose Point of Care 102 mg/dL (70-110)
--- NOTE | 2020-01-02 08:20 | PM.PN ---
Subjective Subjective: Interval history: Patient denies shortness of breath or chest pain this morning. Reports that she did not urinate yet since yesterday. Reports that she was working outside and reports taking hot shower shortly prior to her symptoms and reports that after her recent Lasix dose increase her chronic bilateral lower extremity swelling significantly improved. Reports that she always had left lower extremity swelling larger than the right. She denies nausea or abdominal pain. When she vomited yesterday it was undigested food that she just consumed. She is noted to have diastolic hypotension this morning with blood pressure 50. Her creatinine did not change much and she noted to have dry mucous membranes. Vitals/I&O/Wt Last Vital Signs Temp 97.9 F 01/02/20 07:15 Pulse 67 01/02/20 07:15 Resp 13 01/02/20 07:15 BP 116/50 01/02/20 07:15 Pulse Ox 94 01/02/20 07:15 01/01/20 01/02/20 01/02/20 22:59 06:59 14:59 Output Total 400 / 400 Balance -400 / -400 Weight last 48 hrs Weight 78.925 kg Physical Exam Const: COMMON NORMALS: no acute distress and patient oriented x3 Resp: COMMON NORMALS: normal respiratory effort and clear to auscultation bilaterally AUSCULTATION: clear to auscultation bilaterally Cardio: COMMON NORMALS: regular rate, regular rhythm and S2 normal heart sound present RATE: regular rate RHYTHM: regular rhythm HEART SOUNDS: S2 normal heart sound present OTHER: No lower extremity edema, reports chronic stasis dermatitis for many years GI: COMMON NORMALS: Normal to inspection, nondistended, normoactive bowel sounds present, Soft to palpation and non-tender PALPATION: Yes Soft to palpation Neuro: COMMON NORMALS: patient oriented x3 and no focal motor deficits OTHER: Patient had no cerebellar signs. Normal [id number] test. Normal shoulder shrug and no pronator drift. She has good peripheral vision. Data : 01/02/20 04:38 01/02/20 04:38 A&P Assessment and plan (1) Syncope: This appears to be orthostatic in origin and multifactorial with dehydration, Lasix and hot shower playing a role. Status: Acute (2) Acute kidney injury superimposed on chronic kidney disease: Prerenal. Status: Acute (3) Dehydration: With hyponatremia. Present on admission Status: Acute Additional A&P Information Restless leg syndrome: Continue ropinirole Obstructive sleep apnea: CPAP with auto titration Hypothyroidism: TSH normal, continue levothyroxine home regimen Type 2 diabetes: Continue moderate sliding scale Full code Cardiac diet DVT prophylaxis Heparin PLAN: We will start patient on LR with close monitoring of urinary output and cardiovascular status. 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 No evidence of infectious process including urinary tract. Denies dysuria. Attestations Medical Necessity Statement*: Patient with acute kidney injury and dehydration requires hospitalization for close monitoring and treatment. Coding Level of Care Code Acute Pulp House Supervisor for Reneg Akashd Diagnoses Syncope R55 Acute kidney injury superimposed on chronic kidney disease N17.9; N18.9 Dehydration E86.0
[2020-01-02] MEDS: metoprolol succinate ER (24 HR) 25 mg Tablet PO (08:31)
[2020-01-02] MEDS: levothyroxine 100 mcg Tablet PO (08:31)
[2020-01-02] MEDS: ropinirole 0.25 mg Tablet 0.75 MG PO ×2 (08:48→18:42)
[2020-01-02] MEDS: lactated ringers 1,000 ML 100 ML IV ×2 (08:51→21:53)
[2020-01-02 11:26] LABS: Glucose Point of Care 74 mg/dL (70-110)
[2020-01-02] MEDS: ropinirole 1 mg Tablet 0.5 MG PO ×2 (13:13→20:36)
--- NOTE | 2020-01-02 13:34 | PC.CHAP ---
Pastoral Care Encounter/Spiritual Assessment Type of Contact [] Declined correction officer city or county jail visit [] Patient/Family/Request visit [] Outpatient visit [] Follow-up visit [] Physician referral [] Code/Alert [X] Routine visit [] Staff referral [] Actively dying [] Patient sleeping [] Family support [] [] Out of room [] Palliative care [] [] Receiving care in room [] Pre-surgical visit [] Trauma [] Long length of stay [] ICU visit [] Other: Relational/Emotional Strength [] Patient feels connected with others/family/visitors/staff [] Distress [] Loneliness/isolation [] Abandonment Spirituality of Patient [] Person of Sarai [] Attends Nondenominational of their Sarai [] Believes in Prayer [] Reads Bible or Sikh materials [] There are Spiritual issues to be addressed Plant Physiologist Interventions [] Prayer [] Active listening [] Non-anxious presence [] Spiritual/emotional support [] Crisis/trauma care [] Spiritual counseling [] Bereavement support [] Provided bereavement packet [] Provided Bible/devotional materials [] Provided toy/stuffed animal, coloring book to patient or family member [] Provided Communion [] Anointing/[place] [] Salvation [] Completed spiritual assessment [] Other: Impact on Illness or Injury [] Angry [] Fearful [] Anxious [] Often cries [] Exhaustion [] Unable to work [] Unable to attend judaism [] Unable to walk/stand [] Unable to read [] Unable to drive [] Unable to eat/drink [] Unable to sleep [] Unable to be with family [] Patient intubated [] Other: Summary Time spent with patient
[2020-01-02 16:52] LABS: Glucose Point of Care 96 mg/dL (70-110)
--- NOTE | 2020-01-02 19:39 | PC.NURSE ---
Rounding: Patient is resting in bed watching TV. PAtient denies any needs or pain at this time. Patient is alert and oriented.
[2020-01-02 20:45] LABS: Glucose Point of Care 114 mg/dL (70-110)
[2020-01-03] VITALS: BP 142/78; PULSE 85; RESP 15; TEMP 36.6; O2SAT 95
[2020-01-03] MEDS: heparin 5,000 unit/mL INJ 1 mL 5000 UNIT SUBCUT ×2 (02:14→11:02)
[2020-01-03 04:00] VITALS: BP 153/77; PULSE 84; RESP 22; TEMP 36.6; O2SAT 94
[2020-01-03] MEDS: ropinirole 0.25 mg Tablet 0.75 MG PO (06:00)
--- NOTE | 2020-01-03 06:06 | PC.NURSE ---
End of shift: Patient has rested well this shift. Patient has ambulated with assistance to the bathroom. Patient has had no complaints of pain and patient remains alert and oriented.
[2020-01-03 06:12] LABS: Glucose Point of Care 110 mg/dL (70-110)
[2020-01-03] MEDS: lactated ringers 1,000 ML 100 ML IV (07:44)
[2020-01-03 08:00] VITALS: BP 140/64; PULSE 78; RESP 16; TEMP 36.6; O2SAT 96
[2020-01-03] MEDS: metoprolol succinate ER (24 HR) 25 mg Tablet PO (08:11)
[2020-01-03] MEDS: levothyroxine 100 mcg Tablet PO (08:11)
[2020-01-03 09:13] LABS: Basophils % 0.6 %; Eosinophils # 0.3 10^3/uL (0.0-0.8); Eosinophils % 5.8 %; Hematocrit 31.6 % (37.0-47.0); Hemoglobin 10.1 g/dL (11.5-15.3); Lymphocytes # 1.5 10^3/uL (0.8-4.8); Mean Corpuscular Hemoglobin 30.7 pg (28.0-34.0); Mean Platelet Volume 10.2 fL (7.4-10.4); Monocytes # 0.4 10^3/uL (0.2-0.9); Monocytes % 8.4 %; Neutrophils # 2.47 10^3/uL (1.8-7.7); Nucleated Red Blood Cells % 0 %; Platelet Count 244 10^3/cmm (130-400); Red Blood Count 3.29 10^6/uL (4.1-5.3); Red Cell Distribution Width 13.2 % (12.1-15.1); White Blood Count 4.7 10^3/uL (4.0-10.0)
[2020-01-03 09:37] LABS: Alanine Aminotransferase 10 U/L (0-33); Albumin Level 3.9 g/dL (3.5-5.2); Alkaline Phosphatase 89 IU/L (35-105); Anion Gap 11.9 (5-19); Aspartate Amino Transferase 13 U/L (0-32); Blood Urea Nitrogen 31 mg/dL (8-23); Carbon Dioxide 26 mmol/L (22-29); Chloride 104 mmol/L (98-107); Creatinine Clr Calc Pharmacy 27.0465; Globulin 2.2 g/dL (1.3-4.6); Glucose 152 mg/dL (65-115); Osmolality Calculated 296 mOsm/kg (285-295); Potassium 3.9 mmol/L (3.5-5.1); Sodium 138 mmol/L (136-145); Total Bilirubin 0.2 mg/dL (0.15-1.2); Total Protein 6.1 g/dL (6.6-8.7)
--- NOTE | 2020-01-03 10:33 | PM.DCS ---
Discharge Providers Date of Admission: 01/02/20 02:26 Date of Discharge: January 03, 2020 Attending Provider at Admission: Ramona Ricks MD Attending Provider at Discharge: Brock Alliosn MD Primary Care Provider: Stephanie Rincon MD Diagnoses at Discharge Discharge Diagnosis (1) Syncope: Status: Acute (2) Acute kidney injury superimposed on chronic kidney disease: Status: Acute (3) Dehydration: Status: Acute Reason for Visit Reason for Visit: SYNCOPE Hospital Course Discharge Summary: Patient presented with syncopal episode shortly after taking hot shower and working outside prior to that along with recently increased Lasix for lower extremity swelling and blisters. Patient was found to be dehydrated with evidence of acute kidney injury. She was hydrated and this morning reports feeling much better and wants to go home. She denies shortness of breath or chest pain. She denies lightheadedness or dizziness. She is pretty active and does not report any difficulty with ambulation. She lives alone and is able to take care of her daily needs. We had extensive discussion regarding importance of fluid balance. We have discussed that patient can skip Lasix if she has no lower extremity swelling and especially if she works outside. We have discussed that patient should make sure she is appropriately hydrated when she is working outside and restrict fluids if she has worsening lower extremity edema and related blisters. Patient voiced understanding. I will request BMP check in several days prior to primary care physician follow-up. She had normal bowel movement yesterday. Patient wants to go back to 40 mg daily of Lasix dose and I will change that. We will also switch lisinopril to 20 mg daily and patient was told to keep blood pressure and heart rate log 3 times daily to present to primary care physician next visit for medication adjustment. We will repeat UA prior to discharge to make sure patient has no UTI. She denies dysuria. Denies cough. Physical Exam Const: COMMON NORMALS: no acute distress and patient oriented x3 Resp: COMMON NORMALS: normal respiratory effort and clear to auscultation bilaterally AUSCULTATION: clear to auscultation bilaterally Cardio: COMMON NORMALS: regular rate, regular rhythm and S2 normal heart sound present RATE: regular rate RHYTHM: regular rhythm HEART SOUNDS: S2 normal heart sound present OTHER: Trace lower extremity edema GI: COMMON NORMALS: Normal to inspection, nondistended, normoactive bowel sounds present, Soft to palpation and non-tender PALPATION: Yes Soft to palpation Neuro: COMMON NORMALS: patient oriented x3 and no focal motor deficits Discharge Data Data Completed and Pending: Completed Studies During Hospitalization Category Date Time Status CT head wo con* 7 [id number] Stat Cat Scan 01/01/20 21:32 Completed XR chest 1V carson ble [id number] Stat Exams 01/01/20 21:32 Completed NM pul vent and p erfus* [id number] Routi ne Nuc Med 01/02/20 02:26 Completed CV echo complete* [id number] Routine Ultrasound 01/02/20 02:26 Completed Labs from last 24 hours 01/03/20 01/03/20 01/03/20 08:18 08:18 05:47 WBC 4.7 RBC 3.29 L Hgb 10.1 L Hct 31.6 L MCV 96.0 MCH 30.7 MCHC 32.0 RDW 13.2 Plt Count 244 MPV 10.2 Neut % (Auto) 53.0 Lymph % (Auto) 32.0 [place] % (Auto) 8.4 Eos % (Auto) 5.8 Baso % (Auto) 0.6 Neut # (Auto) 2.47 Lymph # (Auto) 1.5 [place] # (Auto) 0.4 Eos # (Auto) 0.3 Baso # (Auto) 0.0 Nucleated RBC % (a uto) 0 Nucleated RBCs # 0.0 Sodium 138 Potassium 3.9 Chloride 104 Carbon Dioxide 26 Anion Gap 11.9 BUN 31 H Creatinine 1.7 H GFR Calculation Not Reportable Glucose 152 H POC Glucose 110 Calculated Osmolal ity 296 H Calcium 10.0 Total Bilirubin 0.2 AST 13 ALT 10 Alkaline Phosphata se 89 Total Protein 6.1 L Albumin 3.9 Globulin 2.2 01/02/20 01/02/20 01/02/20 19:50 16:20 11:21 WBC RBC Hgb Hct MCV MCH MCHC RDW Plt Count MPV Neut % (Auto) Lymph % (Auto) [place] % (Auto) Eos % (Auto) Baso % (Auto) Neut # (Auto) Lymph # (Auto) [place] # (Auto) Eos # (Auto) Baso # (Auto) Nucleated RBC % (a uto) Nucleated RBCs # Sodium Potassium Chloride Carbon Dioxide Anion Gap BUN Creatinine GFR Calculation Glucose POC Glucose 114 96 74 Calculated Osmolal ity Calcium Total Bilirubin AST ALT Alkaline Phosphata se Total Protein Albumin Globulin Vitals: Last Vital Signs Temp 97.9 F 01/03/20 08:00 Pulse 78 01/03/20 08:00 Resp 16 01/03/20 08:00 BP 140/64 01/03/20 08:00 Pulse Ox 96 01/03/20 08:00 Discharge Plan Discharge Patient Disposition: Home Condition: Stable Prescriptions: Continued amitriptyline 10 mg tablet 30 mg PO .HS Qty: 270 RF: 3 metoprolol succinate 25 mg tablet extended release 24 hr 25 mg PO BID Qty: 180 RF: 2 potassium chloride 10 mEq tablet extended release 10 meq PO DAILY Qty: 90 RF: 2 albuterol sulfate [ProAir HFA] 90 mcg/actuation HFA aerosol inhaler 2 puff INHALATION Q6H PRN (Reason: shortness of breath or wheezing) Qty: 18 RF: 4 ferrous gluconate 325 mg (36 mg iron) tablet 325 mg PO BID RF: 0 aspirin 81 mg tablet,delayed release (DR/EC) 81 mg PO DAILY RF: 0 levothyroxine [Synthroid] 100 mcg tablet 100 mcg PO DAILY Qty: 90 RF: 2 metformin 500 mg tablet extended release 24 hr 500 mg PO BID Qty: 180 RF: 0 estradiol 0.01 % (0.1 mg/gram) cream 0.5 gm VAGINAL .twice/week Qty: 42.5 RF: 9 ropinirole 0.25 mg Tablet See Rx Instructions .ROUTE .COMPLEX RF: 0 gabapentin 300 mg Capsule See Rx Instructions .ROUTE .COMPLEX RF: 0 Vitamin D3 25 mcg (1,000 unit) Capsule 25 mcg PO DAILY RF: 0 Changed lisinopril 20 mg tablet 20 mg PO DAILY Qty: 180 RF: 2 furosemide 20 mg Tablet 40 mg PO DAILY Qty: 30 RF: 0 Discontinued ascorbic acid (vitamin C) 500 mg capsule 500 mg PO TID RF: 0 Discharge Orders: Discharge Order (Routine); Ordered 01/03/20 Ordered By: Brock Allison Other Ambulatory Orders: Basic Metabolic Panel (Routine) Timeframe: [id number] Facility: [facility] - Location: Lab - Main Lab Ordered By: Brock Allison Referrals: Stephanie Rincon MD [Primary Care Provider] - 4-7 days Discharge Diet: Usual diet Discharge Activity: Increase activity as tolerated Activity Restrictions/Additional Instructions: Please call your doctor or present to emergency department if your condition worsens or you develop diarrhea, lightheadedness, fatigue or see blood in your stool or black stool. Please keep blood pressure and heart rate log 3 times daily to present to your primary care physician next visit for medication adjustment. Please monitor fluid intake and urinary output based on lower extremity swelling as we have discussed especially if you work outside. Discharge Attestations Time Spent in Discharge Care*: greater than 30 min Quality Metrics Clinical Quality Measures During this hospital stay, did patient experience: None Coding Level of Care Code Acute Morgue Librarian for Aaron Esparza Diagnoses Syncope R55 Acute kidney injury superimposed on chronic kidney disease N17.9; N18.9 Dehydration E86.0
--- NOTE | 2020-01-03 11:08 | PC.CHAP ---
Pastoral Care Encounter/Spiritual Assessment Type of Contact [] Declined sign fabricator visit [] Patient/Family/Request visit [] Outpatient visit [] Follow-up visit [] Physician referral [] Code/Alert [x] Routine visit [] Staff referral [] Actively dying [] Patient sleeping [] Family support [] [] Out of room [] Palliative care [] [x] Receiving care in room [] Pre-surgical visit [] Trauma [] Long length of stay [] ICU visit [] Other: Relational/Emotional Strength [x] Patient feels connected with others/family/visitors/staff [] Distress [] Loneliness/isolation [] Abandonment Spirituality of Patient [x] Person of Sarai [] Attends Pentecostal of their Sarai [x] Believes in Prayer [] Reads Bible or Hinduism materials [] There are Spiritual issues to be addressed 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 Interventions [x] Prayer [x] Active listening [x] Non-anxious presence []x Spiritual/emotional support [] Crisis/trauma care [x] Spiritual counseling [] Bereavement support [] Provided bereavement packet [] Provided Bible/devotional materials [] Provided toy/stuffed animal, coloring book to patient or family member [] Provided Communion [] Anointing/[place] [] Salvation [x] Completed spiritual assessment [] Other: Impact on Illness or Injury [] Angry [] Fearful [x] Anxious [] Often cries [] Exhaustion [] Unable to work [] Unable to attend gnosticist [] Unable to walk/stand [] Unable to read [] Unable to drive [] Unable to eat/drink [] Unable to sleep [] Unable to be with family [] Patient intubated [] Other: Summary Had to stens feeling good and going home Time spent with patient 10 mins
[2020-01-03 11:33] LABS: Glucose Point of Care 93 mg/dL (70-110)
[2020-01-03] MEDS: ropinirole 1 mg Tablet 0.5 MG PO (11:53)
[2020-01-03 13:31] VITALS: BP 140/64; PULSE 78; RESP 16; TEMP 36.6; O2SAT 96
== END 2020-01-03 13:34 | disposition home or self-care (01) ==
LOC: ER 01-02 00:16 → CSU 01-02 00:27
PROVIDERS: Emergency Medicine; Admitting Provider Internal Medicine; Family Provider Family Medicine; PCP Family Medicine; Visit Provider Internal Medicine
DX: R55 Syncope and collapse (principal); N17.9 Acute kidney failure, unspecified; N18.9 Chronic kidney disease, unspecified; E86.0 Dehydration; G25.81 Restless legs syndrome; G47.33 Obstructive sleep apnea (adult) (pediatric); E11.9 Type 2 diabetes mellitus without complications; G20 Parkinson's disease; E78.5 Hyperlipidemia, unspecified; Z79.82 Long term (current) use of aspirin; Z79.84 Long term (current) use of oral hypoglycemic drugs; I10 Essential (primary) hypertension
CPT/HCPCS: 12345; 36415; 36416; 70450; 71045; 78014; 80048; 80053; 81001; 82962; 83605; 83735; 83880; 84439; 84443; 84484; 85025; 85378; 85610; 93005; 93306; 96360; 96361; 96372; 99284; 99285; A9540; A9567; G0378; J1644; J7030

== ENCOUNTER → 2020-01-07 16:15 | Outpatient (BNVA) | payer MEDICARE, SELFPAY | PROVIDERS: Family Provider Family Medicine; PCP Family Medicine; Visit Provider Family Medicine | DX: E86.0 Dehydration (principal); R55 Syncope and collapse; Z09 Encounter for follow-up examination after completed treatment for conditions other than malignant neoplasm | CPT/HCPCS: 80048 ==

== ENCOUNTER → 2020-07-23 16:22 | Outpatient (BNVA) | payer MEDICARE, SELFPAY | PROVIDERS: Family Provider Family Medicine; PCP Family Medicine; Visit Provider Family Medicine | DX: D64.9 Anemia, unspecified (principal); E03.9 Hypothyroidism, unspecified; E11.9 Type 2 diabetes mellitus without complications; E78.5 Hyperlipidemia, unspecified; I10 Essential (primary) hypertension; G25.81 Restless legs syndrome | CPT/HCPCS: 80053; 80061; 83036; 83550; 84443; 85025 ==

== ENCOUNTER → 2020-10-15 11:28 | Outpatient (BNVA) | payer MEDICARE, SELFPAY | PROVIDERS: Family Provider Family Medicine; PCP Family Medicine; Visit Provider Family Medicine | DX: L98.9 Disorder of the skin and subcutaneous tissue, unspecified (principal); D64.9 Anemia, unspecified | CPT/HCPCS: 83540; 85025 ==

== ENCOUNTER → 2020-12-15 11:10 | Outpatient (BNVA) | payer MEDICARE, SELFPAY | PROVIDERS: Family Provider Family Medicine; PCP Family Medicine; Visit Provider Family Medicine | DX: E11.9 Type 2 diabetes mellitus without complications (principal); D64.9 Anemia, unspecified; E03.9 Hypothyroidism, unspecified; I10 Essential (primary) hypertension; E55.9 Vitamin D deficiency, unspecified; E78.5 Hyperlipidemia, unspecified | CPT/HCPCS: 80053; 80061; 82306; 83036; 84443; 85025 ==

== ENCOUNTER → 2021-05-27 13:32 | Outpatient (BNVA) | payer MEDICARE, SELFPAY | PROVIDERS: Family Provider Family Medicine; PCP Family Medicine; Visit Provider Family Medicine | DX: E03.9 Hypothyroidism, unspecified (principal); E11.9 Type 2 diabetes mellitus without complications; E78.5 Hyperlipidemia, unspecified; I10 Essential (primary) hypertension | CPT/HCPCS: 80053; 80061; 83036; 84443; 85025 ==

== ENCOUNTER → 2021-11-05 14:45 | Outpatient (BNVA) | payer MEDICARE, SELFPAY | PROVIDERS: Family Provider Family Medicine; PCP Family Medicine; Visit Provider Family Medicine | DX: M17.0 Bilateral primary osteoarthritis of knee (principal) | CPT/HCPCS: 73562 ==

== ENCOUNTER → 2021-12-14 09:37 | Outpatient (BNVA) | payer MEDICARE, SELFPAY | PROVIDERS: Family Provider Family Medicine; PCP Family Medicine; Referring Provider Family Medicine; Visit Provider Specialist | DX: M17.0 Bilateral primary osteoarthritis of knee (principal) | CPT/HCPCS: 20610; 73560; 73565; 99204; J1100; J2795; J3301 ==

== ENCOUNTER → 2021-12-18 13:19 | Outpatient (BNVA) | payer MEDICARE, SELFPAY | PROVIDERS: Family Provider Family Medicine; PCP Family Medicine; Visit Provider Internal Medicine Nephrology | DX: N18.4 Chronic kidney disease, stage 4 (severe) (principal); Z79.899 Other long term (current) drug therapy | CPT/HCPCS: 80069; 81003; 82043; 83883; 84155; 84165; 87077; 87086; 87184 ==

== ENCOUNTER 2022-01-26 12:38 | Outpatient (CLI) | payer MEDICARE, SELFPAY ==
--- NOTE | 2022-01-26 12:45 | US_ITS ---
WS: [id number] Bilateral renal ultrasound, 01/26/2022 Clinical Data: CHRONIC KIDNEY DZ STAGE 4 Comparison: Right upper quadrant ultrasound, 04/04/2019 Findings: The right kidney measures 8.3 cm x 3.7 cm x 4.7 cm and the left kidney is 8.9 cm x 3.9 cm x 4.5 cm. T here is a simple right renal cyst measuring 1.66 x 2.00 x 2.57 cm There are no left renal cysts, mass es or hydronephrosis. The renal cortical margins are thin. No renal calculi are seen. The abdominal aorta and inferior vena cava show no vascular abnormalities. The bladder was scanned and was not remarkable. US/US renal BI* [id number] Impression: 1. Thin bilateral renal cortical margins. 2. Small right renal cyst.
== END 2022-01-26 12:39 | disposition home or self-care (01) ==
LOC: RAD 12:39
PROVIDERS: Family Provider Family Medicine; PCP Family Medicine; Visit Provider Internal Medicine Nephrology
DX: N18.4 Chronic kidney disease, stage 4 (severe) (principal); N28.1 Cyst of kidney, acquired
CPT/HCPCS: 76770

== ENCOUNTER → 2022-02-16 14:06 | Outpatient (BNVA) | payer MEDICARE, SELFPAY | PROVIDERS: Family Provider Family Medicine; PCP Family Medicine; Visit Provider Family Medicine | DX: N18.4 Chronic kidney disease, stage 4 (severe) (principal); Z23 Encounter for immunization | CPT/HCPCS: 80069 ==

== ENCOUNTER → 2022-03-17 10:41 | Outpatient (BNVA) | payer MEDICARE, SELFPAY | PROVIDERS: Family Provider Family Medicine; PCP Family Medicine; Visit Provider Specialist | DX: M17.0 Bilateral primary osteoarthritis of knee (principal); Z71.89 Other specified counseling | CPT/HCPCS: 20610; J1100; J2795; J3301 ==

== ENCOUNTER → 2022-07-06 17:37 | Outpatient (BNVA) | payer MEDICARE, SELFPAY | PROVIDERS: Family Provider Family Medicine; PCP Family Medicine; Visit Provider Family Medicine | DX: L03.116 Cellulitis of left lower limb (principal); L03.115 Cellulitis of right lower limb; N18.9 Chronic kidney disease, unspecified; N18.4 Chronic kidney disease, stage 4 (severe) | CPT/HCPCS: 80069; 82043; 82306; 82310; 82542; 83970; 85025 ==

== ENCOUNTER → 2022-07-09 13:04 | Outpatient (BNVA) | payer MEDICARE, SELFPAY | PROVIDERS: Family Provider Family Medicine; PCP Family Medicine; Visit Provider Thoracic Surgery (Cardiothoracic Vascular Surgery) | DX: I89.0 Lymphedema, not elsewhere classified (principal); L97.811 Non-pressure chronic ulcer of other part of right lower leg limited to breakdown of skin; L97.821 Non-pressure chronic ulcer of other part of left lower leg limited to breakdown of skin | CPT/HCPCS: 97597; 97598; 99213 ==

== ENCOUNTER → 2022-07-12 15:32 | Outpatient (BNVA) | payer MEDICARE, SELFPAY | PROVIDERS: Family Provider Family Medicine; PCP Family Medicine; Visit Provider Thoracic Surgery (Cardiothoracic Vascular Surgery) | DX: I89.0 Lymphedema, not elsewhere classified (principal) | CPT/HCPCS: 29581 ==

== ENCOUNTER → 2022-07-16 14:01 | Outpatient (BNVA) | payer MEDICARE, SELFPAY | PROVIDERS: Family Provider Family Medicine; PCP Family Medicine; Visit Provider Thoracic Surgery (Cardiothoracic Vascular Surgery) | DX: Z09 Encounter for follow-up examination after completed treatment for conditions other than malignant neoplasm (principal) | CPT/HCPCS: 99212 ==

== ENCOUNTER → 2022-07-21 11:36 | Outpatient (BNVA) | payer MEDICARE, SELFPAY | PROVIDERS: Family Provider Family Medicine; PCP Family Medicine; Visit Provider Family Medicine | DX: R19.7 Diarrhea, unspecified (principal) | CPT/HCPCS: 87493 ==

== ENCOUNTER → 2022-08-05 11:31 | Outpatient (BNVA) | payer MEDICARE, SELFPAY | PROVIDERS: Family Provider Family Medicine; PCP Family Medicine; Visit Provider Family Medicine | DX: N18.4 Chronic kidney disease, stage 4 (severe) (principal) | CPT/HCPCS: 80069 ==

== ENCOUNTER → 2022-08-11 15:01 | Outpatient (BNVA) | payer MEDICARE, SELFPAY | PROVIDERS: Family Provider Family Medicine; PCP Family Medicine; Visit Provider Thoracic Surgery (Cardiothoracic Vascular Surgery) | DX: I89.0 Lymphedema, not elsewhere classified (principal) | CPT/HCPCS: 29581 ==

== ENCOUNTER → 2022-08-13 13:19 | Outpatient (BNVA) | payer MEDICARE, SELFPAY | PROVIDERS: Family Provider Family Medicine; PCP Family Medicine; Visit Provider Thoracic Surgery (Cardiothoracic Vascular Surgery) | DX: I89.0 Lymphedema, not elsewhere classified (principal) | CPT/HCPCS: 29581 ==

== ENCOUNTER → 2022-08-20 14:20 | Outpatient (BNVA) | payer MEDICARE, SELFPAY | PROVIDERS: Family Provider Family Medicine; PCP Family Medicine; Visit Provider Thoracic Surgery (Cardiothoracic Vascular Surgery) | DX: I89.0 Lymphedema, not elsewhere classified (principal) | CPT/HCPCS: 29581 ==

== ENCOUNTER → 2022-08-27 13:03 | Outpatient (BNVA) | payer MEDICARE, SELFPAY | PROVIDERS: Family Provider Family Medicine; PCP Family Medicine; Visit Provider Thoracic Surgery (Cardiothoracic Vascular Surgery) | DX: I87.8 Other specified disorders of veins (principal) | CPT/HCPCS: 29581 ==

== ENCOUNTER → 2022-09-03 13:01 | Outpatient (BNVA) | payer MEDICARE, SELFPAY | PROVIDERS: Family Provider Family Medicine; PCP Family Medicine; Visit Provider Thoracic Surgery (Cardiothoracic Vascular Surgery) | DX: R60.0 Localized edema (principal) | CPT/HCPCS: 29581 ==

== ENCOUNTER → 2022-09-10 14:02 | Outpatient (BNVA) | payer MEDICARE, SELFPAY | PROVIDERS: Family Provider Family Medicine; PCP Family Medicine; Visit Provider Thoracic Surgery (Cardiothoracic Vascular Surgery) | DX: Z51.89 Encounter for other specified aftercare (principal) | CPT/HCPCS: 99212 ==

== ENCOUNTER 2022-09-13 12:32 | Emergency (ER) | payer MEDICARE, SELFPAY ==
[2022-09-13] VITALS (34 sets, daily range): BP systolic 105–139; BP diastolic 43–87; PULSE 49–63; RESP 12–39; TEMP 37; O2SAT 81–100; BMI 29.0
--- NOTE | 2022-09-13 12:36 | XR_ITS ---
WS: [id number] Exam: XR chest 1V portable [id number] Date/Time of Exam: 09/13/2022 12:36 PM Reason For Exam: cp Comparison 01/01/2020. Findings: The lungs are clear and fully expanded. Costophrenic angles are sharp. No infiltrates. Bronchovascula r relief appears normal. Cardiac silhouette is unremarkable. Bony elements are intact. XR/XR chest 1V portable [id number] IMPRESSION: Unremarkable chest radiograph.
--- NOTE | 2022-09-13 12:36 | ECG_ITS ---
[facility] Test Date: 2022-09-13 Pat Name: Ansley Freitas Department: Room: Gender: Female Director Meetings: : 1935 Requested By: Natalie Maza Order Number: [id number] Yola MD: Telly Mcmahon M.D. Measurements Intervals [place] Rate: 53 P: 50 [place]: 178 QRS: 63 QRSD: 92 T: 66 QT: 410 QTc: 388 Interpretive Statements SINUS BRADYCARDIA Compared to ECG 01/01/2020 22:09:22 Sinus rhythm no longer present Electronically Signed On 09-13-2022 17:23:28 CDT by Telly Mcmahon M.D. [id number] f
--- NOTE | 2022-09-13 12:37 | W.ED.CHESTPA ---
HPI - Chest Pain General: Chief Complaint: Chest Pain Stated Complaint: stemi Time Seen by Provider: 09/13/22 12:36 Source: patient and EMS Mode of arrival: EMS Limitations: no limitations History of Present Illness: 87-year-old female who states that roughly 2 hours ago she had episode where she was feeling lightheaded got diaphoretic and almost passed out she believes she may have passed out for a little while she denies having any chest pain states that ever since being ambulance getting some fluids she feels much improved. She denies any fevers or cough or headache. Associated symptoms: Reports nausea; Deny abdominal pain, dyspnea, fever(s) or vomiting Review of Systems Const: Denies: fever(s), chills or body aches Eyes: Denies: eye discomfort ENMT: Denies: throat pain or dental pain Card: Reports: pre-syncope; Denies: chest pain Resp: Denies: dyspnea GI: Reports: nausea; Denies: abdominal pain, vomiting or diarrhea Musc: Denies: neck pain or back pain Skin/Breast: Denies: rash Neuro: Denies: headache(s) PFSH ED PFSH: Medical History Acquired hypothyroidism Arteriosclerotic vascular disease Chronic depression Chronic kidney disease (~01/2022) stage 4 Chronic pain syndrome Controlled restless legs syndrome Cystocele Diverticulosis Dyslipidemia Esophageal dysmotility Essential (primary) hypertension Fatty liver Hammertoe of right foot Neuropathy Obstructive sleep apnea Parkinson's disease Peripheral arterial disease Prolapse of vaginal vault after hysterectomy Type 2 diabetes mellitus without complications Surgical History H/O ovarian cystectomy (~1959) History of bladder repair surgery (~1999) Ring urethropexy History of hernia repair (~01/2008) History of total hysterectomy (~1969) Diagnosis: Endometriosis Family History Brother CAD (coronary artery disease) Diabetes Father Diabetes Sister Hypertension Heart disease Mother Cancer uterine--- dx age 33 Uterine cancer, Onset Age: 33 Denies family history of Colon cancer Ovarian cancer Hyperlipidemia Breast cancer Thyroid condition Stroke Social History Smoking and tobacco status: never smoked Alcohol intake: never Substance/Drug Use: never Course Reevaluation(s): Reevaluation #1: Patient was a STEMI alert from the field did print off her previous EKG she is having no chest pain Dr. Escobar of cardiology did review EKG and evaluated patient he does not feel like it is a STEMI at this time as her EKG is unchanged the elevation of the EKG is likely repull and is unchanged from her previous EKG and she is chest pain-free currently Time: 12:39 Vital Signs: Vital signs: Vital Signs Temperature 98.6 F 09/13/22 12:36 Pulse Rate 55 L 09/13/22 15:30 Respiratory Rate 25 H 09/13/22 15:30 Blood Pressure 129/56 09/13/22 15:30 Pulse Oximetry 98 09/13/22 15:20 Oxygen Delivery Me thod Room Air 09/13/22 15:20 Oxygen Flow Rate 3 09/13/22 12:36 MDM - Chest Pain Medical Decision Making Patient presents here after a syncopal event she had no chest pain her EKG is here to show repole her troponins are normal she is felt much improved here she has had no signs of a stroke she is able to ambulate here without any difficulty she had these episodes before sound like a likely vagal response she is to follow-up with PCP and return if worsening she understands agrees to plan. Medical Records I reviewed the patient's medical records. Lab Data I reviewed the patient's lab results. 09/13/22 12:40 09/13/22 12:40 Radiology Impressions Chest X-Ray 09/13/22 12:36 IMPRESSION: Unremarkable chest radiograph. Laboratory Results WBC 6.4 10^3/uL (4.0-10.0) 09/13/22 12:40 RBC 2.94 10^6/uL (4.1-5.3) L 09/13/22 12:40 Hgb 8.2 g/dL (11.5-15.3) L 09/13/22 12:40 Hct 27.1 % (37.0-47.0) L 09/13/22 12:40 MCV 92.2 fl (81-99) 09/13/22 12:40 MCH 27.9 pg (28.0-34.0) L 09/13/22 12:40 MCHC 30.3 g/dL (30.0-36.0) 09/13/22 12:40 RDW 14.3 % (12.1-15.1) 09/13/22 12:40 Plt Count 269 10^3/cmm (130-400) 09/13/22 12:40 MPV 9.9 fL (7.4-10.4) 09/13/22 12:40 Neut % (Auto) 68.9 % 09/13/22 12:40 Lymph % (Auto) 17.9 % 09/13/22 12:40 [place] % (Auto) 8.0 % 09/13/22 12:40 Eos % (Auto) 4.4 % 09/13/22 12:40 Baso % (Auto) 0.5 % 09/13/22 12:40 Neut # (Auto) 4.42 10^3/uL (1.8-7.7) 09/13/22 12:40 Lymph # (Auto) 1.2 10^3/uL (0.8-4.8) 09/13/22 12:40 [place] # (Auto) 0.5 10^3/uL (0.2-0.9) 09/13/22 12:40 Eos # (Auto) 0.3 10^3/uL (0.0-0.8) 09/13/22 12:40 Baso # (Auto) 0.0 10^3/uL (0.0-0.1) 09/13/22 12:40 Nucleated RBC % (auto) 0 % 09/13/22 12:40 Nucleated RBCs # 0.0 /100WBC 09/13/22 12:40 PT 13.50 SECONDS (12.1-14.9) 09/13/22 12:40 INR 1.00 (0.8-1.2) 09/13/22 12:40 Sodium 140 mmol/L (136-145) 09/13/22 12:40 Potassium 4.8 mmol/L (3.5-5.1) 09/13/22 12:40 Chloride 107 mmol/L (98-107) 09/13/22 12:40 Carbon Dioxide 20 mmol/L (22-29) L 09/13/22 12:40 Anion Gap 17.8 (5-19) 09/13/22 12:40 BUN 40 mg/dL (8-23) H 09/13/22 12:40 Creatinine 2.2 mg/dL (0.5-0.9) H 09/13/22 12:40 GFR Calculation Not Reportable 09/13/22 12:40 Glucose 116 mg/dL (65-115) H 09/13/22 12:40 Calculated Osmolality 301 mOsm/kg (285-295) H 09/13/22 12:40 Calcium 8.9 mg/dL (8.5-10.5) 09/13/22 12:40 Total Bilirubin 0.2 mg/dL (0.15-1.2) 09/13/22 12:40 AST 17 U/L (0-32) 09/13/22 12:40 ALT 13 U/L (0-33) 09/13/22 12:40 Alkaline Phosphatase 161 U/L (35-105) H 09/13/22 12:40 Troponin T Baseline 22 ng/L (0-10) H 09/13/22 12:40 Troponin T 120 Minute 22.05 ng/L (0-10) H 09/13/22 14:26 Delta Troponin T 0.05 ABS# (0-10) 09/13/22 14:26 Total Protein 6.2 g/dL (6.6-8.7) L 09/13/22 12:40 Albumin 3.9 g/dL (3.5-5.2) 09/13/22 12:40 Globulin 2.3 g/dL (1.3-4.6) 09/13/22 12:40 Lipase 131 U/L (13-60) H 09/13/22 12:40 EKG Data EKG 1: I personally reviewed and interpreted this EKG as follows: EKG interpretation date: 09/13/22 EKG interpretation time: 12:36 Interpretation: sinus juanita hr [address] elevation in inferior leads unchange from previous ekg qrs 92 qtc 394 Discharge Plan Discharge Patient Disposition: Home Clinical Impression: Syncope Condition: Stable Prescriptions: No Action ferrous gluconate 324 mg (37.5 mg iron) tablet 324 mg PO DAILY aspirin 81 mg tablet,delayed release (DR/EC) 81 mg PO DAILY krill oil 500 mg capsule 500 mg PO DAILY vitamin B complex [B Complex-Vitamin B12] Tablet 1 tab PO DAILY gabapentin 300 mg capsule See Rx Instructions .ROUTE .COMPLEX Qty: 360 3RF Dose Instruction: TAKE 1 CAPSULE TWICE A DAY IN THE MORNING AND NOON Rx Instructions: TAKE 1 CAPSULE TWICE A DAY IN THE MORNING AND NOON TAKE 2 CAPSULES AT bEDTIME estradiol 0.01 % (0.1 mg/gram) cream See Rx Instructions .ROUTE .COMPLEX Qty: 42.5 3RF Dose Instruction: USE 1 GRAM VAGINALLY THREE TIMES WEEKLY Rx Instructions: USE 1 GRAM VAGINALLY THREE TIMES WEEKLY cholecalciferol (vitamin D3) [Vitamin D3] 25 mcg (1,000 unit) Capsule 25 mcg PO DAILY lisinopril 20 mg tablet 20 mg PO DAILY potassium chloride 10 mEq tablet extended release 10 meq PO DAILY Rx Instructions: TAKE 1 TABLET DAILY WITH LASIX levothyroxine 100 mcg tablet 100 mcg PO DAILY ropinirole 0.25 mg tablet See Rx Instructions .ROUTE .COMPLEX Rx Instructions: ;TAKE 3 TABLETS (0.75 MG) AT 5:30 A.M., 2 TABLETS (0.5 MG) AT 12 NOON, 3 TABLETS (0.75 MG) AT 6:30 P.M., AND 2 TABLETS (0.5 MG) AT BEDTIME amitriptyline 10 mg tablet 30 mg PO BEDTIME Rx Instructions: TAKE 3 TABLETS (30 MG) AT BEDTIME metoprolol succinate 25 mg tablet extended release 24 hr 25 mg PO DAILY ezetimibe 10 mg tablet 10 mg PO DAILY torsemide 20 mg tablet 20 mg PO DAILY vitamin U78-ldsda acid 0.5-1 mg Tablet 1 tab PO DAILY coQ10 (ubiquinol) 200 mg Capsule 200 mg PO DAILY Discharge Orders: Discharge ED (Routine); Ordered 09/13/22 Ordered By: Natalie Maza Referrals: Stephanie Rincon MD [Primary Care Provider] - 1-3 days Discharge Diet: Advance as tolerated Discharge Activity: Resume usual activity Patient Instructions: Syncope (ED) Coding Level of Care Code ED 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
[2022-09-13 12:54] LABS: Basophils % 0.5 %; Eosinophils # 0.3 10^3/uL (0.0-0.8); Eosinophils % 4.4 %; Hematocrit 27.1 % (37.0-47.0); Hemoglobin 8.2 g/dL (11.5-15.3); Lymphocytes # 1.2 10^3/uL (0.8-4.8); Lymphocytes % 17.9 %; Mean Corpuscular HGB Conc 30.3 g/dL (30.0-36.0); Mean Corpuscular Hemoglobin 27.9 pg (28.0-34.0); Mean Corpuscular Volume 92.2 fl (81-99); Mean Platelet Volume 9.9 fL (7.4-10.4); Monocytes # 0.5 10^3/uL (0.2-0.9); Neutrophils # 4.42 10^3/uL (1.8-7.7); Neutrophils % 68.9 %; Nucleated Red Blood Cells % 0 %; Platelet Count 269 10^3/cmm (130-400); Red Blood Count 2.94 10^6/uL (4.1-5.3); Red Cell Distribution Width 14.3 % (12.1-15.1); White Blood Count 6.4 10^3/uL (4.0-10.0)
[2022-09-13 13:09] LABS: Alanine Aminotransferase 13 U/L (0-33); Albumin Level 3.9 g/dL (3.5-5.2); Alkaline Phosphatase 161 U/L (35-105); Anion Gap 17.8 (5-19); Aspartate Amino Transferase 17 U/L (0-32); Blood Urea Nitrogen 40 mg/dL (8-23); Calcium 8.9 mg/dL (8.5-10.5); Carbon Dioxide 20 mmol/L (22-29); Chloride 107 mmol/L (98-107); Globulin 2.3 g/dL (1.3-4.6); Glucose 116 mg/dL (65-115); Osmolality Calculated 301 mOsm/kg (285-295); Potassium 4.8 mmol/L (3.5-5.1); Sodium 140 mmol/L (136-145); Total Bilirubin 0.2 mg/dL (0.15-1.2); Total Protein 6.2 g/dL (6.6-8.7)
[2022-09-13 13:10] LABS: Troponin(5th) Baseline 22 ng/L (0-10)
[2022-09-13 13:25] LABS: Lipase 131 U/L (13-60)
--- NOTE | 2022-09-13 14:45 | ECG_ITS ---
[facility] Test Date: 2022-09-13 Pat Name: Ansley Freitas Department: Room: Gender: Female Human Resources Safety Manager: : 1935 Requested By: Natalie Maza Order Number: [id number] Yola MD: Telly Mcmahon M.D. Measurements Intervals [place] Rate: 54 P: 55 [place]: 175 QRS: 71 QRSD: 90 T: 71 QT: 428 QTc: 409 Interpretive Statements SINUS BRADYCARDIA MINIMAL ST DEPRESSION [0.025+ mV ST DEPRESSION] Compared to ECG 09/13/2022 12:36:55 ST (T wave) deviation now present Electronically Signed On 09-13-2022 17:25:03 CDT by Telly Mcmahon M.D. [id number]
[2022-09-13 14:49] LABS: Troponin 5 2HR 22.05 ng/L (0-10)
[2022-09-13 14:50] LABS: Troponin 5 2HR Delta 0.05 ABS# (0-10)
[2022-09-13] MEDS: sodium chloride 0.9% 500 ML 999 ML IV (15:16)
== END 2022-09-13 15:46 | disposition home or self-care (01) ==
PROVIDERS: Emergency Provider Emergency Medicine; PCP Family Medicine
DX: R55 Syncope and collapse (principal); Z79.82 Long term (current) use of aspirin; I12.9 Hypertensive chronic kidney disease with stage 1 through stage 4 chronic kidney disease, or unspecified chronic kidney disease; E11.22 Type 2 diabetes mellitus with diabetic chronic kidney disease; N18.4 Chronic kidney disease, stage 4 (severe); E78.5 Hyperlipidemia, unspecified; G20 Parkinson's disease
CPT/HCPCS: 36415; 71045; 80053; 83690; 84484; 85025; 85610; 93005; 99285; J7040

== ENCOUNTER → 2022-09-24 12:58 | Outpatient (BNVA) | payer MEDICARE, SELFPAY | PROVIDERS: PCP Family Medicine; Visit Provider Thoracic Surgery (Cardiothoracic Vascular Surgery) | DX: R60.0 Localized edema (principal) | CPT/HCPCS: 99212 ==

== ENCOUNTER → 2022-12-03 12:00 | Outpatient (BNVA) | payer MEDICARE, SELFPAY | PROVIDERS: PCP Family Medicine; Visit Provider Family Medicine | DX: I10 Essential (primary) hypertension (principal); N18.9 Chronic kidney disease, unspecified; D64.9 Anemia, unspecified | CPT/HCPCS: 80069; 82310; 82728; 83550; 83970; 85025 ==

== ENCOUNTER → 2023-03-08 13:16 | Outpatient (BNVA) | payer MEDICARE, SELFPAY | PROVIDERS: PCP Family Medicine; Visit Provider Nurse Practitioner Family | DX: Z85.828 Personal history of other malignant neoplasm of skin (principal); D22.5 Melanocytic nevi of trunk; L82.1 Other seborrheic keratosis; L81.4 Other melanin hyperpigmentation; L57.8 Other skin changes due to chronic exposure to nonionizing radiation | CPT/HCPCS: 99213 ==

== ENCOUNTER → 2023-06-15 11:01 | Outpatient (BNVA) | payer MEDICARE, SELFPAY | PROVIDERS: PCP Family Medicine; Visit Provider Family Medicine | DX: N18.9 Chronic kidney disease, unspecified (principal) | CPT/HCPCS: 80069; 82310; 82570; 83970; 84156; 85025 ==

== ENCOUNTER → 2023-07-05 10:55 | Outpatient (BNVA) | payer BC, SELFPAY | PROVIDERS: PCP Family Medicine; Visit Provider Registered Nurse | DX: N18.9 Chronic kidney disease, unspecified (principal); Z79.899 Other long term (current) drug therapy | CPT/HCPCS: 81003; 82570; 84156 ==

== ENCOUNTER → 2023-09-21 11:37 | Outpatient (BNVA) | payer MEDICARE, SELFPAY | PROVIDERS: PCP Family Medicine; Visit Provider Family Medicine | DX: L03.116 Cellulitis of left lower limb (principal); I10 Essential (primary) hypertension; E78.5 Hyperlipidemia, unspecified; E11.9 Type 2 diabetes mellitus without complications; L03.90 Cellulitis, unspecified; N18.9 Chronic kidney disease, unspecified | CPT/HCPCS: 80053; 80061; 80069; 82306; 82310; 82570; 83036; 83540; 83970; 84156; 84443; 85025 ==

== ENCOUNTER 2023-10-04 15:27 | Emergency (ER) | payer MEDICARE, SELFPAY ==
[2023-10-04 15:29] VITALS: BP 167/72; PULSE 66; RESP 18; TEMP 37.1; O2SAT 98
--- NOTE | 2023-10-04 15:38 | ED_ITS ---
Documented by User: Tramaine Vernon DO 10/05/23 06:58 HPI - Extremity Problem 2 General: Chief complaint: Extremity Injury, Lower Stated complaint: dr sommer, cellulitis in legs Time Seen by Provider: 10/04/23 15:38 Source: patient Mode of arrival: ambulatory History of Present Illness: 88-year-old female presents to the emerg ency room with complaints of swelling and discomfort in her lower extremities. She has chronic wounds on her lower extremities and has chronic lymphedema as well. She has been seen in the wound clinic before. She denies any fever sweats or chills. Couple weeks ago she was started on clindamycin after 2 days she was changed to Keflex because of GI intolerance to clindamycin. More recently she was switched to Augmentin. No shortness of breath or chest pain or abdominal pain. She had previously seen wound care for this. MD Complaint: extremity swelling Pain Consistency: constant Location: lower extremity Quality: aching Relieving factors: nothing Exacerbating factors: nothing Associated symptoms: Deny arthralgias, chest pain, fever(s), myalgias, rash or short of breath Review of Systems 2 Const: Reports: fatigue; Denies: fever(s) or chills Card: Reports: edema and swelling of feet/ankles; Denies: chest pain Resp: Denies: dyspnea GI: Denies: abdominal pain : Denies: dysuria, urinary frequency or urinary urgency Musc: Denies: neck pain or back pain Skin/Breast: Denies: rash PFSH ED 2 PFSH: Medical History Parkinson's disease Chronic kidney disease (~01/2022) stage 4 Fatty liver Diverticulosis Esophageal dysmotility Cystocele Prolapse of vaginal vault after hysterectomy Peripheral arterial disease Hammertoe of right foot Acquired hypothyroidism Type 2 diabetes mellitus without complications Neuropathy Dyslipidemia Essential (primary) hypertension Controlled restless legs syndrome Arteriosclerotic vascular disease Chronic depression Chronic pain syndrome Obstructive sleep apnea Surgical History H/O ovarian cystectomy (~1959) History of hernia repair (~01/2008) History of total hysterectomy (~1969) Diagnosis: Endometriosis History of bladder repair surgery (~1999) Ring urethropexy Family History Brother CAD (coronary artery disease) Diabetes Father Diabetes Sister Hypertension Heart disease Mother Cancer uterine--- dx age 33 Uterine cancer, Onset Age: 33 Denies family history of Colon cancer Ovarian cancer Hyperlipidemia Breast cancer Thyroid disease Stroke Social History Smoking and tobacco/nicotine status: never used tobacco/nicotine Physical Exam 2 Const: COMMON NORMALS: no acute distress GENERAL APPEARANCE: cooperative and comfortable ORIENTATION/CONSCIOUSNESS: Yes awake, Yes oriented to person, Yes oriented to place and Yes oriented to time HENMT: COMMON NORMALS: normocephalic, atraumatic and hearing grossly normal bilaterally HEAD & SCALP: normocephalic and atraumatic Resp: COMMON NORMALS: normal respiratory effort, No retractions, No use of accessory muscles and clear to auscultation bilaterally AUSCULTATION: clear to auscultation bilaterally Cardio: COMMON NORMALS: regular rate, regular rhythm and No murmurs present (Cardio) RATE: regular rate RHYTHM: regular rhythm GI: COMMON NORMALS: Soft to palpation and No hepatosplenomegaly present A USCULTATION: Yes normoactive bowel sounds PALPATION: Yes Soft to palpation, No Tenderness to palpation present (GI), No Guarding due to palpation present (GI) and Yes No hepatosplenomegaly present Extremity: COMMON NORMALS: normal to inspection, capillary refill normal, no clubbing, cyanosis or edema, no calf tenderness and no pedal edema Neuro: SENSORIUM/ORIENTATION: Yes oriented to person, Yes oriented to place and Yes oriented to time Skin: COMMON NORMALS: no rashes or lesions noted GENERAL SKIN EXAM: no rashes or lesions noted Course 2 Vital Signs: Vital signs: Vital Signs Temperature 98.8 F 10/04/23 15:29 Pulse Rate 54 L 10/04/23 18:00 Respiratory Rate 18 10/04/23 15:29 Blood Pressure 155/76 10/04/23 18:00 Pulse Oximetry 100 10/04/23 18:00 Oxygen Delivery Me thod Room Air 10/04/23 18:00 MDM - Extremity (Nontraumatic) Medical Decision Making Care signed out to Dr. Layne at change of shift. See final notes for diagnosis and disposition. Patient got sort of myself at shift change, lab work was reviewed, as well as venous duplex ultrasound that went discussed these results with the patient does not appear the patient is having cellulitis at this time it appears more stasis dermatitis. Patient has recently had her torsemide doubled, she has worn compression stockings and wraps in the past but when she had an open wound they started hurting so she took them off and has not wear them for a while. Discussed with the patient that she probably needs to start those back again and figure out some version of the wraps that she can wear as well as continue the increase of her torsemide. Patient be discharged from the ER. Lab Data 10/04/23 16:29 10/04/23 16:29 Radiology Impressions Venous Duplex 10/04/23 15:50 IMPRESSION: No evidence of deep vein thrombosis. Laboratory Results WBC 6.22 10^3/uL (3.29-11.43) 10/04/23 16: RBC 3.15 10^6/uL (3.85-5.65) L 10/04/23 16: Hgb 9.50 g/dL (11.27-16.99) L 10/04/23 16: Hct 29.7 % (36-47) L 10/04/23 16: MCV 94.3 fl (85-98) 10/04/23 16: MCH 30.2 pg (27-33) 10/04/23 16: MCHC 32.0 g/dL (30-55) 10/04/23 16: RDW 12.4 % (12.1-15.1) 10/04/23 16: Plt Count 277 10^3/cmm (157-399) 10/04/23 16: MPV 10.0 fL (7.4-10.4) 10/04/23 16: Neut % (Auto) 43.4 % 10/04/23 16: Lymph % (Auto) 25.4 % 10/04/23 16: [place] % (Auto) 8.2 % 10/04/23 16: Eos % (Auto) 21.7 % 10/04/23 16: Baso % (Auto) 1.0 % 10/04/23 16: Neut # (Auto) 2.70 10^3/uL (1.8-7.7) 10/04/23 16: Lymph # (Auto) 1.6 10^3/uL (0.8-4.8) 10/04/23 16: [place] # (Auto) 0.5 10^3/uL (0.2-0.9) 10/04/23 16:29 Eos # (Auto) 1.4 10^3/uL (0.0-0.8) H 10/04/23 16: Baso # (Auto) 0.1 10^3/uL (0.0-0.1) 10/04/23 16: Nucleated RBC % (auto) 0 % 10/04/23: Nucleated RBCs # 0.0 /100WBC 10/04/23 16: Sodium 136 mmol/L (136-145) 10/04/23 16: Potassium 4.9 mmol/L (3.5-5.1) 10/04/23: Chloride 102 mmol/L (98-107) 10/04/23 16: Carbon Dioxide 24 mmol/L (22-29) 10/04/23 16: Anion Gap 14.9 (5-19) 10/04/23 16: BUN 49 mg/dL (8-23) H 10/04/23 16: Creatinine 1.9 mg/dL (0.5-0.9) H 10/04/23 16:29 GFR Calculation Not Reportable 10/04/23: Glucose 113 mg/dL (65-115) 10/04/23 16: Calculated Osmolality 296 mOsm/kg (285-295) H 10/04/23 16: Lactic Acid 0.8 mmol/L (0.5-2.2) 10/04/23 16: Calcium 10.1 mg/dL (8.5-10.5) 10/04/23 16: Total Bilirubin 0.2 mg/dL (0.15-1.2) 10/04/23 16:29 AST 13 U/L (0-32) 10/04/23 16: ALT 15 U/L (0-33) 10/04/23 16: Alkaline Phosphatase 125 U/L (35-105) H 10/04/23 16:29 Total Protein 7.3 g/dL (6.6-8.7) 10/04/23 16:29 Albumin 4.1 g/dL (3.5-5.2) 10/04/23 16:29 Globulin 3.2 g/dL (1.3-4.6) 10/04/23 16:29 Procalcitonin 0.04 ng/mL (0-0.5) 10/04/23 16:29 Urine Color Yellow (Yellow) 10/04/23 18:46 Urine Appearance Clear (CLEAR) 10/04/23 18:46 Urine pH 7 (5-7) 10/04/23 18:[address] [place] 1.010 (1.005-1.030) 10/04/23 18:46 Urine Protein Neg (Negative) 10/04/23 18:46 Urine Glucose (UA) Norm (Normal) 10/04/23 18:46 Urine Ketones Negative (Negative) 10/04/23 18:46 Urine Blood Neg (Negative) 10/04/23 18:46 Urine Nitrate Negative (Negative) 10/04/23 18:46 Urine Bilirubin Neg (Negative) 10/04/23 18:46 Urine Urobilinogen Norm mg/dL (Negative) 10/04/23 18:46 Ur Leukocyte Esterase Negative (Negative) 10/04/23 18:46 Discharge Plan Discharge Patient Disposition: Home Clinical Impression: Stasis dermatitis of both legs Condition: Stable Prescriptions: No Action ferrous gluconate 324 mg (37.5 mg iron) tablet 324 mg PO DAILY aspirin 81 mg tablet,delayed release (DR/EC) 81 mg PO DAILY krill oil 500 mg capsule 500 mg PO DAILY torsemide 40 mg tablet 40 mg PO DAILY Qty: 30 1RF potassium chloride 20 mEq tablet extended release 20 meq PO DAILY Qty: 30 3RF Rx Instructions: TAKE 1 TABLET DAILY WITH LASIX amoxicillin-pot clavulanate 875-125 mg tablet 1 tab PO BID Qty: 20 0RF vitamin B complex [B Complex-Vitamin B12] Tablet 1 tab PO DAILY metronidazole 500 mg tablet 500 mg PO BID 7 Days Qty: 14 0RF clindamycin HCl 300 mg capsule 300 mg PO TID Qty: 30 0RF cephalexin 500 mg capsule 500 mg PO Q8H Qty: 30 0RF estradiol 0.01 % (0.1 mg/gram) cream See Rx Instructions .ROUTE .COMPLEX Qty: 42.5 3RF Dose Instruction: USE 1 GRAM VAGINALLY THREE TIMES WEEKLY Rx Instructions: USE 1 GRAM VAGINALLY THREE TIMES WEEKLY amitriptyline 10 mg tablet See Rx Instructions .ROUTE .COMPLEX Qty: 270 3RF Dose Instruction: TAKE 3 TABLETS (30 MG) AT BEDTIME Rx Instructions: TAKE 3 TABLETS (30 MG) AT BEDTIME gabapentin 300 mg capsule See Rx Instructions .ROUTE .COMPLEX Qty: 360 3RF Dose Instruction: TAKE 1 CAPSULE TWICE A DAY IN THE MORNING AND NOON Rx Instructions: TAKE 1 CAPSULE TWICE A DAY IN THE MORNING AND NOON TAKE 2 CAPSULES AT bEDTIME metoprolol succinate 25 mg tablet extended release 24 hr 25 mg PO BID Qty: 180 2RF levothyroxine 100 mcg tablet 100 mcg PO DAILY Qty: 30 3RF ropinirole 0.25 mg tablet See Rx Instructions .ROUTE .COMPLEX Qty: 300 2RF Rx Instructions: ;TAKE 3 TABLETS (0.75 MG) AT 5:30 A.M., 2 TABLETS (0.5 MG) AT 12 NOON, 3 TABLETS (0.75 MG) AT 6:30 P.M., AND 2 TABLETS (0.5 MG) AT BEDTIME ezetimibe 10 mg tablet 10 mg PO DAILY Qty: 30 3RF lisinopril 20 mg tablet 20 mg PO DAILY Qty: 30 3RF (DME) fernanda queen See Rx Instructions .Route .MEDSUPPLY Qty: 1 0RF Rx Instructions: As directed coQ10 (ubiquinol) 200 mg Capsule 200 mg PO DAILY Discharge Orders: Discharge ED (Routine); Ordered 10/04/23 Ordered By: Cedric Layne Referrals: Stephanie Rincon MD [Primary Care Provider] - 1 week Patient Instructions: Stasis Dermatitis (ED) Activity Restrictions/Additional Instructions: Your evaluation performed in ER shows that you do not have active cellulitis at this time it appears more like stasis dermatitis. Please continue your wraps of some sort that enough compression on 2 help but not too much compression to make sores. Please continue to the increase of your diuretic and potassium as instructed by your family practice physician. Please follow-up with them within the next 7 days for further evaluation and treatment. Coding Level of Care Code ED Washer Off for Chg Fwd Documented by User: Cedric Layne DO 10/06/23 02:57 HPI - Extremity Problem 2 General: Chief complaint: Extremity Injury, Lower Stated complaint: dr referral, cellulitis in legs Time Seen by Provider: 10/04/23 15:38 PFSH ED 2 PFSH: Medical History Parkinson's disease Chronic kidney disease (~01/2022) stage 4 Fatty liver Diverticulosis Esophageal dysmotility Cystocele Prolapse of vaginal vault after hysterectomy Peripheral arterial disease Hammertoe of right foot Acquired hypothyroidism Type 2 diabetes mellitus without complications Neuropathy Dyslipidemia Essential (primary) hypertension Controlled restless legs syndrome Arteriosclerotic vascular disease Chronic depression Chronic pain syndrome Obstructive sleep apnea Surgical History H/O ovarian cystectomy (~1959) History of hernia repair (~01/2008) History of total hysterectomy (~1969) Diagnosis: Endometriosis History of bladder repair surgery (~1999) Ring urethropexy Family History Brother CAD (coronary artery disease) Diabetes Father Diabetes Sister Hypertension Heart disease Mother Cancer uterine--- dx age 33 Uterine cancer, Onset Age: 33 Denies family history of Colon cancer Ovarian cancer Hyperlipidemia Breast cancer Thyroid disease Stroke Social History Smoking and tobacco/nicotine status: never used tobacco/nicotine Course 2 Vital Signs: Vital signs: Vital Signs Temperature 98.8 F 10/04/23 15:29 Pulse Rate 54 L 10/04/23 18:00 Respiratory Rate 18 10/04/23 15:29 Blood Pressure 155/76 10/04/23 18:00 Pulse Oximetry 100 10/04/23 18:00 Oxygen Delivery Me thod Room Air 10/04/23 18:00 MDM - Extremity (Nontraumatic) Medical Decision Making Patient got sort of myself at shift change, lab work was reviewed, as well as venous duplex ultrasound that went discussed these results with the patient does not appear the patient is having cellulitis at this time it appears more stasis dermatitis. Patient has recently had her torsemide doubled, she has worn compression stockings and wraps in the past but when she had an open wound they started hurting so she took them off and has not wear them for a while. Discussed with the patient that she probably needs to start those back again and figure out some version of the wraps that she can wear as well as continue the increase of her torsemide. Patient be discharged from the ER. Lab Data 10/04/23 16:29 10/04/23 16:29 Radiology Impressions Venous Duplex 10/04/23 15:50 IMPRESSION: No evidence of deep vein thrombosis. Laboratory Results WBC 6.22 10^3/uL (3.29-11.43) 10/04/23 16: RBC 3.15 10^6/uL (3.85-5.65) L 10/04/23 16: Hgb 9.50 g/dL (11.27-16.99) L 10/04/23 16: Hct 29.7 % (36-47) L 10/04/23 16: MCV 94.3 fl (85-98) 10/04/23 16: MCH 30.2 pg (27-33) 10/04/23 16: MCHC 32.0 g/dL (30-55) 10/04/23 16: RDW 12.4 % (12.1-15.1) 10/04/23 16: Plt Count 277 10^3/cmm (157-399) 10/04/23 16: MPV 10.0 fL (7.4-10.4) 10/04/23 16: Neut % (Auto) 43.4 % 10/04/23 16: Lymph % (Auto) 25.4 % 10/04/23 16: [place] % (Auto) 8.2 % 10/04/23 16: Eos % (Auto) 21.7 % 10/04/23 16: Baso % (Auto) 1.0 % 10/04/23 16: Neut # (Auto) 2.70 10^3/uL (1.8-7.7) 10/04/23 16: Lymph # (Auto) 1.6 10^3/uL (0.8-4.8) 10/04/23 16: [place] # (Auto) 0.5 10^3/uL (0.2-0.9) 10/04/23 16: Eos # (Auto) 1.4 10^3/uL (0.0-0.8) H 10/04/23 16: Baso # (Auto) 0.1 10^3/uL (0.0-0.1) 10/04/23 16: Nucleated RBC % (auto) 0 % 10/04/23: Nucleated RBCs # 0.0 /100WBC 10/04/23 16: Sodium 136 mmol/L (136-145) 10/04/23 16: Potassium 4.9 mmol/L (3.5-5.1) 10/04/23: Chloride 102 mmol/L (98-107) 10/04/23: Carbon Dioxide 24 mmol/L (22-29) 10/04/23 16: Anion Gap 14.9 (5-19) 10/04/23 16: BUN 49 mg/dL (8-23) H 10/04/23 16: Creatinine 1.9 mg/dL (0.5-0.9) H 10/04/23 16: GFR Calculation Not Reportable 10/04/23: Glucose 113 mg/dL (65-115) 10/04/23 16: Calculated Osmolality 296 mOsm/kg (285-295) H 10/04/23 16: Lactic Acid 0.8 mmol/L (0.5-2.2) 10/04/23 16: Calcium 10.1 mg/dL (8.5-10.5) 10/04/23 16: Total Bilirubin 0.2 mg/dL (0.15-1.2) 10/04/23 16: AST 13 U/L (0-32) 10/04/23 16: ALT 15 U/L (0-33) 10/04/23 16: Alkaline Phosphatase 125 U/L (35-105) H 10/04/23 16: Total Protein 7.3 g/dL (6.6-8.7) 10/04/23 16:29 Albumin 4.1 g/dL (3.5-5.2) 10/04/23 16:29 Globulin 3.2 g/dL (1.3-4.6) 10/04/23 16:29 Procalcitonin 0.04 ng/mL (0-0.5) 10/04/23 16:29 Urine Color Yellow (Yellow) 10/04/23 18:46 Urine Appearance Clear (CLEAR) 10/04/23 18:46 Urine pH 7 (5-7) 10/04/23 18:[address] [place] 1.010 (1.005-1.030) 10/04/23 18:46 Urine Protein Neg (Negative) 10/04/23 18:46 Urine Glucose (UA) Norm (Normal) 10/04/23 18:46 Urine Ketones Negative (Negative) 10/04/23 18:46 Urine Blood Neg (Negative) 10/04/23 18:46 Urine Nitrate Negative (Negative) 10/04/23 18:46 Urine Bilirubin Neg (Negative) 10/04/23 18:46 Urine Urobilinogen Norm mg/dL (Negative) 10/04/23 18:46 Ur Leukocyte Esterase Negative (Negative) 10/04/23 18:46 All radiology interpretation(s) finalized by discharge Discharge Plan Discharge Patient Disposition: Home Clinical Impression: Stasis dermatitis of both legs Condition: Stable Prescriptions: No Action ferrous gluconate 324 mg (37.5 mg iron) tablet 324 mg PO DAILY aspirin 81 mg tablet,delayed release (DR/EC) 81 mg PO DAILY krill oil 500 mg capsule 500 mg PO DAILY torsemide 40 mg tablet 40 mg PO DAILY Qty: 30 1RF potassium chloride 20 mEq tablet extended release 20 meq PO DAILY Qty: 30 3RF Rx Instructions: TAKE 1 TABLET DAILY WITH LASIX amoxicillin-pot clavulanate 875-125 mg tablet 1 tab PO BID Qty: 20 0RF vitamin B complex [B Complex-Vitamin B12] Tablet 1 tab PO DAILY metronidazole 500 mg tablet 500 mg PO BID 7 Days Qty: 14 0RF clindamycin HCl 300 mg capsule 300 mg PO TID Qty: 30 0RF cephalexin 500 mg capsule 500 mg PO Q8H Qty: 30 0RF estradiol 0.01 % (0.1 mg/gram) cream See Rx Instructions .ROUTE .COMPLEX Qty: 42.5 3RF Dose Instruction: USE 1 GRAM VAGINALLY THREE TIMES WEEKLY Rx Instructions: USE 1 GRAM VAGINALLY THREE TIMES WEEKLY amitriptyline 10 mg tablet See Rx Instructions .ROUTE .COMPLEX Qty: 270 3RF Dose Instruction: TAKE 3 TABLETS (30 MG) AT BEDTIME Rx Instructions: TAKE 3 TABLETS (30 MG) AT BEDTIME gabapentin 300 mg capsule See Rx Instructions .ROUTE .COMPLEX Qty: 360 3RF Dose Instruction: TAKE 1 CAPSULE TWICE A DAY IN THE MORNING AND NOON Rx Instructions: TAKE 1 CAPSULE TWICE A DAY IN THE MORNING AND NOON TAKE 2 CAPSULES AT bEDTIME metoprolol succinate 25 mg tablet extended release 24 hr 25 mg PO BID Qty: 180 2RF levothyroxine 100 mcg tablet 100 mcg PO DAILY Qty: 30 3RF ropinirole 0.25 mg tablet See Rx Instructions .ROUTE .COMPLEX Qty: 300 2RF Rx Instructions: ;TAKE 3 TABLETS (0.75 MG) AT 5:30 A.M., 2 TABLETS (0.5 MG) AT 12 NOON, 3 TABLETS (0.75 MG) AT 6:30 P.M., AND 2 TABLETS (0.5 MG) AT BEDTIME ezetimibe 10 mg tablet 10 mg PO DAILY Qty: 30 3RF lisinopril 20 mg tablet 20 mg PO DAILY Qty: 30 3RF (DME) fernanda queen See Rx Instructions .Route .MEDSUPPLY Qty: 1 0RF Rx Instructions: As directed coQ10 (ubiquinol) 200 mg Capsule 200 mg PO DAILY Discharge Orders: Discharge ED (Routine); Ordered 10/04/23 Ordered By: Cedric Layne Referrals: Stephanie Rincon MD [Primary Care Provider] - 1 week Patient Instructions: Stasis Dermatitis (ED) Activity Restrictions/Additional Instructions: Your evaluation performed in ER shows that you do not have active cellulitis at this time it appears more like stasis dermatitis. Please continue your wraps of some sort that enough compression on 2 help but not too much compression to make sores. Please continue to the increase of your diuretic and potassium as instructed by your family practice physician. Please follow-up with them within the next 7 days for further evaluation and treatment. Coding Level of Care Code ED Washer Off for Aaron Esparza
--- NOTE | 2023-10-04 15:50 | USR_ITS ---
PROCEDURE INFORMATION: Exam: US Duplex Lower Extremity Veins, Bilateral Exam date and time: 10/04/2023 4:04 PM Age: 88 years old Clinical indication: Swelling (edema) of limb; Lower extremity, bilateral; Additional info: Leg swelling TECHNIQUE: Imaging protocol: Real-time duplex ultrasound of the bilateral extremities with 2-D morgan scale, color Doppler flow and spectral waveform analysis including responses to compression and other maneuvers (when performed) with image documentation. Complete exam focused on the lower extremity veins. COMPARISON: US renal BI* [id number] 01/26/2022 12:51 PM FINDINGS: Right deep veins: Unremarkable. The common femoral, femoral, proximal profunda femoral and popliteal veins are patent without thrombus. Normal Doppler waveforms. Normal compressibility and/or augmentation response. Left deep veins: Unremarkable. The common femoral, femoral, proximal profunda femoral and popliteal veins are patent without thrombus. Normal Doppler waveforms. Normal compressibility and/or augmentation response. Superficial veins: Greater saphenous veins at the saphenofemoral junctions are patent bilaterally without thrombus. Soft tissues: Unremarkable. US/[place] [id number] IMPRESSION: No evidence of deep vein thrombosis.
[2023-10-04 16:48] LABS: Basophils # 0.1 10^3/uL (0.0-0.1); Eosinophils # 1.4 10^3/uL (0.0-0.8); Eosinophils % 21.7 %; Hematocrit 29.7 % (36-47); Lymphocytes # 1.6 10^3/uL (0.8-4.8); Lymphocytes % 25.4 %; Mean Corpuscular Hemoglobin 30.2 pg (27-33); Mean Corpuscular Volume 94.3 fl (85-98); Monocytes # 0.5 10^3/uL (0.2-0.9); Monocytes % 8.2 %; Neutrophils % 43.4 %; Nucleated Red Blood Cells % 0 %; Platelet Count 277 10^3/cmm (157-399); Red Blood Count 3.15 10^6/uL (3.85-5.65); Red Cell Distribution Width 12.4 % (12.1-15.1); White Blood Count 6.22 10^3/uL (3.29-11.43)
[2023-10-04 17:00] VITALS: BP 140/74; PULSE 57; O2SAT 97
[2023-10-04 17:13] LABS: Alanine Aminotransferase 15 U/L (0-33); Albumin Level 4.1 g/dL (3.5-5.2); Alkaline Phosphatase 125 U/L (35-105); Anion Gap 14.9 (5-19); Aspartate Amino Transferase 13 U/L (0-32); Blood Urea Nitrogen 49 mg/dL (8-23); Calcium 10.1 mg/dL (8.5-10.5); Carbon Dioxide 24 mmol/L (22-29); Chloride 102 mmol/L (98-107); Creatinine Clr Calc Pharmacy 22.5915; Globulin 3.2 g/dL (1.3-4.6); Glucose 113 mg/dL (65-115); Osmolality Calculated 296 mOsm/kg (285-295); Potassium 4.9 mmol/L (3.5-5.1); Sodium 136 mmol/L (136-145); Total Bilirubin 0.2 mg/dL (0.15-1.2); Total Protein 7.3 g/dL (6.6-8.7)
[2023-10-04 17:14] LABS: Lactic Sepsis W/Reflex 0.8 mmol/L (0.5-2.2)
[2023-10-04 17:30] VITALS: BP 153/51; PULSE 56; O2SAT 96
[2023-10-04 18:00] VITALS: BP 155/76; PULSE 54; O2SAT 100
[2023-10-04 18:11] LABS: Procalcitonin 0.04 ng/mL (0-0.5)
[2023-10-04 18:59] LABS: Add Urine Microscopic? NO; Charge for UA Resulting for Rev
[2023-10-04 19:04] LABS: Bilirubin Urine Neg (Negative); Blood Urine Neg (Negative); Glucose Urine UA Norm (Normal); Ketones Urine Negative (Negative); Leukocyte Esterase Urine Negative (Negative); Nitrate Urine Negative (Negative); Protein Urine Neg (Negative); Urine Appearance Clear (CLEAR); Urine Color Yellow (Yellow); Urobilinogen Urine Norm (Negative); pH Urine 7 (5-7)
--- NOTE | 2023-10-04 19:17 | PC.NURSE ---
Wrapped bilateral lower extremities with telfa over blister skin, kerlex, and light compression wrap with micheline bandage
== END 2023-10-04 19:18 | disposition home or self-care (01) ==
PROVIDERS: Emergency Provider Family Medicine; PCP Family Medicine
DX: I87.2 Venous insufficiency (chronic) (peripheral) (principal); I89.0 Lymphedema, not elsewhere classified; I13.0 Hypertensive heart and chronic kidney disease with heart failure and stage 1 through stage 4 chronic kidney disease, or unspecified chronic kidney disease; N18.4 Chronic kidney disease, stage 4 (severe); E11.22 Type 2 diabetes mellitus with diabetic chronic kidney disease; E78.5 Hyperlipidemia, unspecified; G20.A1 Parkinson's disease without dyskinesia, without mention of fluctuations; Z79.899 Other long term (current) drug therapy; Z79.82 Long term (current) use of aspirin
CPT/HCPCS: 36415; 80053; 81003; 83605; 84145; 85025; 87040; 93970; 99284

== ENCOUNTER → 2023-10-12 14:18 | Outpatient (BNVA) | payer MEDICARE, SELFPAY | PROVIDERS: PCP Family Medicine; Visit Provider Thoracic Surgery (Cardiothoracic Vascular Surgery) | DX: I96 Gangrene, not elsewhere classified (principal); I89.0 Lymphedema, not elsewhere classified; L97.821 Non-pressure chronic ulcer of other part of left lower leg limited to breakdown of skin | CPT/HCPCS: 99213; A6446 ==

== ENCOUNTER → 2023-10-14 13:31 | Outpatient (BNVA) | payer MEDICARE, SELFPAY | PROVIDERS: PCP Family Medicine; Visit Provider Thoracic Surgery (Cardiothoracic Vascular Surgery) | DX: L97.822 Non-pressure chronic ulcer of other part of left lower leg with fat layer exposed (principal) | CPT/HCPCS: 29581; A6251 ==

== ENCOUNTER → 2023-10-21 10:58 | Outpatient (BNVA) | payer MEDICARE, SELFPAY | PROVIDERS: PCP Family Medicine; Visit Provider Thoracic Surgery (Cardiothoracic Vascular Surgery) | DX: I89.0 Lymphedema, not elsewhere classified (principal); L97.821 Non-pressure chronic ulcer of other part of left lower leg limited to breakdown of skin | CPT/HCPCS: 97597 ==

== ENCOUNTER → 2023-10-28 10:54 | Outpatient (BNVA) | payer MEDICARE, SELFPAY | PROVIDERS: PCP Family Medicine; Visit Provider Thoracic Surgery (Cardiothoracic Vascular Surgery) | DX: I89.0 Lymphedema, not elsewhere classified (principal); L97.821 Non-pressure chronic ulcer of other part of left lower leg limited to breakdown of skin | CPT/HCPCS: 97597 ==

== ENCOUNTER → 2023-11-04 10:29 | Outpatient (BNVA) | payer MEDICARE, SELFPAY | PROVIDERS: PCP Family Medicine; Visit Provider Thoracic Surgery (Cardiothoracic Vascular Surgery) | DX: Z09 Encounter for follow-up examination after completed treatment for conditions other than malignant neoplasm (principal); Z87.2 Personal history of diseases of the skin and subcutaneous tissue | CPT/HCPCS: 99212 ==

== ENCOUNTER → 2024-01-02 13:56 | Outpatient (BNVA) | payer MEDICARE, SELFPAY | PROVIDERS: Visit Provider Nurse Practitioner Family | DX: E55.9 Vitamin D deficiency, unspecified (principal); N18.4 Chronic kidney disease, stage 4 (severe) | CPT/HCPCS: 80069; 82043; 82306; 82310; 83970; 85025 ==

== ENCOUNTER → 2024-01-23 08:43 | Outpatient (BNVA) | payer MEDICARE, SELFPAY | PROVIDERS: Visit Provider Thoracic Surgery (Cardiothoracic Vascular Surgery) | DX: I96 Gangrene, not elsewhere classified (principal); I87.2 Venous insufficiency (chronic) (peripheral); L97.821 Non-pressure chronic ulcer of other part of left lower leg limited to breakdown of skin; L97.811 Non-pressure chronic ulcer of other part of right lower leg limited to breakdown of skin; L97.311 Non-pressure chronic ulcer of right ankle limited to breakdown of skin | CPT/HCPCS: 97597; 99213; A6251 ==

== ENCOUNTER → 2024-01-25 16:15 | Outpatient (BNVA) | payer MEDICARE, SELFPAY | PROVIDERS: Visit Provider Thoracic Surgery (Cardiothoracic Vascular Surgery) | DX: L97.822 Non-pressure chronic ulcer of other part of left lower leg with fat layer exposed (principal); L97.812 Non-pressure chronic ulcer of other part of right lower leg with fat layer exposed | CPT/HCPCS: 29581; A6252 ==

== ENCOUNTER → 2024-02-01 08:30 | Outpatient (BNVA) | payer MEDICARE, SELFPAY | PROVIDERS: Visit Provider Thoracic Surgery (Cardiothoracic Vascular Surgery) | DX: I96 Gangrene, not elsewhere classified (principal); I87.2 Venous insufficiency (chronic) (peripheral); L97.821 Non-pressure chronic ulcer of other part of left lower leg limited to breakdown of skin; Z09 Encounter for follow-up examination after completed treatment for conditions other than malignant neoplasm | CPT/HCPCS: 29581; 97597 ==

== ENCOUNTER 2024-02-02 14:50 | Emergency (ER) | payer MEDICARE, SELFPAY ==
[2024-02-02 14:56] VITALS: BP 185/68; PULSE 70; RESP 18; TEMP 36.4; O2SAT 98; BMI 27.4
[2024-02-02 15:10] LABS: Glucose Point of Care > 600 mg/dL (70-110)
[2024-02-02 15:53] LABS: ABG PCO2 33.5 mmHg (35-45); ABG PH Result 7.38 (7.35-7.45); Alveolar-Arterial Oxygen Gradi 2.4 mmHg (5-10); Arterial Blood Gas Hematocrit 29.2 % (37-47); Base Excess ABG -4.9 mmol/L (-2.0-2.0); Blood Gas Allen Test Pos; Blood Gas Operator Identificat WALC9; Blood Gas Sample Site Radial, right; Blood Gas Sample Type Arterial; Carboxyhemoglobin 0.9 %THgb (0.4-20.1); HCO3 ABG 19.7 mmol/L (22-26); Ionized Calcium Level - ABG 1.3 mmol/L (1.1-1.4); Methemoglobin 0.9 % (0.4-1.5); Oxygen Device ROOM AIR; Oxygen Saturation ABG 97.8; PO2 ABG 88.8 mmHg (80.0-100.0); PO2 FiO2 Ratio Arterial Blood 422; Potassium Level - ABG 4.3 mmol/L (3.5-5.0); Total Hemoglobin 9.5 g/dL (12-16)
[2024-02-02 16:31] LABS: Basophils # 0.1 10^3/uL (0.0-0.1); Eosinophils # 0.7 10^3/uL (0.0-0.8); Eosinophils % 14.2 %; Hematocrit 29.7 % (36-47); Lymphocytes # 1.2 10^3/uL (0.8-4.8); Lymphocytes % 23.8 %; Mean Corpuscular HGB Conc 31.6 g/dL (30-55); Mean Corpuscular Hemoglobin 28.7 pg (27-33); Mean Corpuscular Volume 90.8 fl (85-98); Mean Platelet Volume 10.9 fL (7.4-10.4); Monocytes # 0.5 10^3/uL (0.2-0.9); Monocytes % 8.8 %; Neutrophils # 2.69 10^3/uL (1.8-7.7); Neutrophils % 51.6 %; Nucleated Red Blood Cells % 0 %; Platelet Count 223 10^3/cmm (157-399); Red Blood Count 3.27 10^6/uL (3.85-5.65); Red Cell Distribution Width 14.1 % (12.1-15.1); White Blood Count 5.21 10^3/uL (3.29-11.43)
[2024-02-02 16:53] LABS: Alanine Aminotransferase 17 U/L (0-33); Alkaline Phosphatase 166 U/L (35-105); Anion Gap 16.7 (5-19); Aspartate Amino Transferase 12 U/L (0-32); Blood Urea Nitrogen 45 mg/dL (8-23); Calcium 9.1 mg/dL (8.5-10.5); Carbon Dioxide 22 mmol/L (22-29); Chloride 98 mmol/L (98-107); Creatinine Clr Calc Pharmacy 20.1646; Globulin 2.6 g/dL (1.3-4.6); Osmolality Calculated 314 mOsm/kg (285-295); Potassium 4.7 mmol/L (3.5-5.1); Sodium 132 mmol/L (136-145); Total Bilirubin 0.2 mg/dL (0.15-1.2); Total Protein 6.6 g/dL (6.6-8.7)
[2024-02-02 16:55] LABS: Glucose 604 mg/dL (65-115)
[2024-02-02 17:04] LABS: Ketone (Acetest) Serum Negative (Negative)
[2024-02-02 17:09] LABS: Estmated Average Glucose 237; Hemoglobin A1C 9.9 % (4.0-6.0)
--- NOTE | 2024-02-02 17:50 | ED_ITS ---
HPI - General Adult 2 General: Chief complaint: General Medical Stated complaint: blood sugar 562 Time Seen by Provider: 02/02/24 17:50 History of Present Illness: Patient presents to the ER with complaints of high blood sugars. She states she has not had any issues with her blood sugars before. Her last A1c was normal 3 months ago. Patient has had some trouble with wound healing on her legs, she does have lymphedema, she does see the wound clinic. Related Data Home Medications Medication Instructions Recorded Confirmed aspirin 81 mg tablet,delayed 81 mg PO DAILY 03/19/19 02/02/24 release krill oil 500 mg capsule 500 mg PO DAILY 05/21/20 02/02/24 ferrous gluconate 324 mg (37.5 mg 324 mg PO DAILY 12/04/20 02/02/24 iron) tablet vitamin B complex (B 1 tab PO DAILY 06/24/21 02/02/24 Complex-Vitamin B12 tablet) coQ10 (ubiquinol) 200 mg capsule 200 mg PO DAILY 09/13/22 02/02/24 Previous Rx's Medication Instructions Recorded estradiol 0.01% (0.1 mg/gram) See Rx Instructions .Route 09/07/22 vaginal cream .COMPLEX #42.5 grams gabapentin 300 mg capsule See Rx Instructions .Route 02/03/23 .COMPLEX #360 caps metoprolol succinate 25 mg 25 mg PO BID #180 tabs 02/22/23 tablet,extended release 24 hr torsemide 40 mg tablet 40 mg PO DAILY #30 tabs 09/26/23 rollater walker #1 ea 10/11/23 amitriptyline 10 mg tablet See Rx Instructions .Route 10/18/23 .COMPLEX #270 tabs ezetimibe 10 mg tablet 10 mg PO DAILY #90 tabs 11/30/23 levothyroxine 100 mcg tablet 100 mcg PO DAILY #90 tabs 11/30/23 lisinopril 20 mg tablet 20 mg PO DAILY #90 tabs 11/30/23 potassium chloride 20 mEq 20 meq PO DAILY #90 tabs 12/01/23 tablet,extended release ropinirole 0.25 mg tablet See Rx Instructions .Route 12/12/23 .COMPLEX #300 tabs insulin aspart U-100 100 unit/mL See Rx Instructions .Route 02/02/24 (3 mL) subcutaneous pen (Novolog .COMPLEX #15 mL FlexPen U-100 Insulin aspart) Allergies Allergy/AdvReac Type Severity Reaction Status Date / Time Iodinated Contrast Media Allergy Severe fanting Verified 02/02/24 10:38 nitrofurantoin Allergy Mild rash Verified 02/02/24 10:38 [From Macrodantin] Sulfa (Sulfonamide Allergy Mild rash Verified 02/02/24 10:38 Antibiotics) tetanus toxoid, adsorbed Allergy Mild rash Verified 02/02/24 10:38 tetracycline Allergy Mild rash Verified 02/02/24 10:38 Review of Systems 2 General: Reports: 10 or more systems reviewed and unremarkable except in HPI and below PFSH ED 2 PFSH: Medical History Parkinson's disease Chronic kidney disease (~01/2022) stage 4 Fatty liver Diverticulosis Esophageal dysmotility Cystocele Prolapse of vaginal vault after hysterectomy Peripheral arterial disease Hammertoe of right foot Acquired hypothyroidism Type 2 diabetes mellitus without complications Neuropathy Dyslipidemia Essential (primary) hypertension Controlled restless legs syndrome Arteriosclerotic vascular disease Chronic depression Chronic pain syndrome Obstructive sleep apnea Surgical History H/O ovarian cystectomy (~1959) History of hernia repair (~01/2008) History of total hysterectomy (~1969) Diagnosis: Endometriosis History of bladder repair surgery (~1999) Ring urethropexy Family History Brother CAD (coronary artery disease) Diabetes Father Diabetes Sister Hypertension Heart disease Mother Cancer uterine--- dx age 33 Uterine cancer, Onset Age: 33 Denies family history of Colon cancer Ovarian cancer Hyperlipidemia Breast cancer Thyroid disease Stroke Social History Smoking and tobacco/nicotine status: never used tobacco/nicotine Physical Exam 2 Const: COMMON NORMALS: no acute distress, average body habitus, patient oriented x3, no limitations, healthy appearing, alert and well nourished HENMT: COMMON NORMALS: normocephalic, atraumatic, hearing grossly normal bilaterally, external ears normal, Normal external nose present and moist oral mucous membranes HEAD & SCALP: normocephalic and atraumatic NOSE: Normal external nose present EXTERNAL EAR: Yes external ears normal Neck/C-Spine: COMMON NORMALS: no JVD Chest: COMMONS NORMALS: normal inspection of the chest and normal palpation of entire chest wall Resp: COMMON NORMALS: normal respiratory effort, No retractions, No use of accessory muscles and clear to auscultation bilaterally AUSCULTATION: clear to auscultation bilaterally Cardio: COMMON NORMALS: no JVD, regular rate, regular rhythm, S1 normal heart sound present, S2 normal heart sound present, No gallops present (Cardio), No clicks present (Cardio), No murmurs present (Cardio) and No rub (Cardio) R ATE: regular rate RHYTHM: regular rhythm HEART SOUNDS: S1 normal heart sound present and S2 normal heart sound present GI: COMMON NORMALS: Normal to inspection, nondistended, normoactive bowel sounds present, Soft to palpation, non-tender, No hepatosplenomegaly present and no masses PALPATION: Yes Soft to palpation and Yes No hepatosplenomegaly present Neuro: COMMON NORMALS: patient oriented x3 SENSORIUM/ORIENTATION: Yes alert Course 2 Vital Signs: Vital signs: Vital Signs Temperature 97.5 F L 02/02/24 14:56 Pulse Rate 58 L 02/02/24 21:18 Respiratory Rate 16 02/02/24 18:33 Blood Pressure 168/73 02/02/24 21:18 Pulse Oximetry 99 02/02/24 21:18 Oxygen Delivery Me thod Room Air 02/02/24 18:33 [facility] - General Adult Medical Decision Making Patient came in with blood sugar of 604. She is given 10 units of IV insulin her blood sugar improved dramatically. The rest of her blood work was essentially unremarkable her hemoglobin A1c was 9.9, serum ketones negative, ABG pH 7.38, she will be started on sliding scale insulin and referred back to her family doctor. Medical Records I reviewed the patient's medical records. Lab Data I reviewed the patient's lab results. 02/02/24 16:09 02/02/24 16:09 Laboratory Results WBC 5.21 10^3/uL (3.29-11.43) 02/02/24 16:09 RBC 3.27 10^6/uL (3.85-5.65) L 02/02/24 16:09 Hgb 9.40 g/dL (11.27-16.99) L 02/02/24 16:09 Hct 29.7 % (36-47) L 02/02/24 16:09 MCV 90.8 fl (85-98) 02/02/24 16:09 MCH 28.7 pg (27-33) 02/02/24 16:09 MCHC 31.6 g/dL (30-55) 02/02/24 16:09 RDW 14.1 % (12.1-15.1) 02/02/24 16:09 Plt Count 223 10^3/cmm (157-399) 02/02/24 16:09 MPV 10.9 fL (7.4-10.4) H 02/02/24 16:09 Neut % (Auto) 51.6 % 02/02/24 16:09 Lymph % (Auto) 23.8 % 02/02/24 16:09 [place] % (Auto) 8.8 % 02/02/24 16:09 Eos % (Auto) 14.2 % 02/02/24 16:09 Baso % (Auto) 1.0 % 02/02/24 16:09 Neut # (Auto) 2.69 10^3/uL (1.8-7.7) 02/02/24 16:09 Lymph # (Auto) 1.2 10^3/uL (0.8-4.8) 02/02/24 16:09 [place] # (Auto) 0.5 10^3/uL (0.2-0.9) 02/02/24 16:09 Eos # (Auto) 0.7 10^3/uL (0.0-0.8) 02/02/24 16:09 Baso # (Auto) 0.1 10^3/uL (0.0-0.1) 02/02/24 16:09 Nucleated RBC % (auto) 0 % 02/02/24 16:09 Nucleated RBCs # 0.0 /100WBC 02/02/24 16:09 Specimen Type Arterial 02/02/24 15:42 Sample Site Radial, right 02/02/24 15:42 ABG pH 7.38 (7.35-7.45) 02/02/24 15:42 ABG pCO2 33.5 mmHg (35-45) L 02/02/24 15:42 ABG pO2 88.8 mmHg (80.0-100.0) 02/02/24 15:42 ABG PO2/FiO2 Ratio 422 02/02/24 15:42 ABG HCO3 19.7 mmol/L (22-26) L 02/02/24 15:42 ABG O2 Saturation 97.8 02/02/24 15:42 ABG Base Excess -4.9 mmol/L (-2.0-2.0) L 02/02/24 15:42 Barry Test Pos 02/02/24 15:42 A-a O2 Gradient 2.4 mmHg (5-10) L 02/02/24 15:42 Hematocrit 29.2 % (37-47) L 02/02/24 15:42 Hgb O2 Saturation 96.0 % (95-100) 02/02/24 15:42 Carboxyhemoglobin 0.9 %THgb (0.4-20.1) 02/02/24 15:42 Methemoglobin 0.9 % (0.4-1.5) 02/02/24 15:42 Total Hemoglobin 9.5 g/dL (12-16) L 02/02/24 15:42 Sodium 133.0 mmol/L (131-143) 02/02/24 15:42 Potassium 4.3 mmol/L (3.5-5.0) 02/02/24 15:42 Glucose 603.0 mg/dL (70-115) H 02/02/24 15:42 Ionized Calcium 1.3 mmol/L (1.1-1.4) 02/02/24 15:42 O2 Delivery Device Room air 02/02/24 15:42 FiO2 21.0 % 02/02/24 15:42 Angle Dozer Operator ID [id number] 02/02/24 15:42 Sodium 132 mmol/L (136-145) L 02/02/24 16:09 Potassium 4.7 mmol/L (3.5-5.1) 02/02/24 16:09 Chloride 98 mmol/L (98-107) 02/02/24 16:09 Carbon Dioxide 22 mmol/L (22-29) 02/02/24 16:09 Anion Gap 16.7 (5-19) 02/02/24 16:09 BUN 45 mg/dL (8-23) H 02/02/24 16:09 Creatinine 2.1 mg/dL (0.5-0.9) H 02/02/24 16:09 GFR Calculation Not Reportable 02/02/24 16:09 Glucose 604 mg/dL (65-115) H* 02/02/24 16:09 POC Glucose 337 mg/dL (70-110) H 02/02/24 19:19 Estimat Average Glucose 237 02/02/24 16:04 Hemoglobin A1c 9.9 % (4.0-6.0) H 02/02/24 16:04 Calculated Osmolality 314 mOsm/kg (285-295) H 02/02/24 16:09 Calcium 9.1 mg/dL (8.5-10.5) 02/02/24 16:09 Total Bilirubin 0.2 mg/dL (0.15-1.2) 02/02/24 16:09 AST 12 U/L (0-32) 02/02/24 16:09 ALT 17 U/L (0-33) 02/02/24 16:09 Alkaline Phosphatase 166 U/L (35-105) H 02/02/24 16:09 Total Protein 6.6 g/dL (6.6-8.7) 02/02/24 16:09 Albumin 4.0 g/dL (3.5-5.2) 02/02/24 16:09 Globulin 2.6 g/dL (1.3-4.6) 02/02/24 16:09 Serum Ketones Negative (Negative) 02/02/24 16:04 All radiology interpretation(s) finalized by discharge Discharge Plan Discharge Patient Disposition: Home Clinical Impression: Diabetes Qualifiers: Diabetes mellitus type: type 2 Diabetes mellitus half-way insulin use: u nspecified manager intermediate insulin use status Diabetes mellitus complication status: w ith hyperglycemia Qualified Code(s): E11.65 - Type 2 diabetes mellitus with hyperglycemia Condition: Stable Prescriptions: New insulin aspart U-100 [Novolog FlexPen U-100 Insulin] 100 unit/mL (3 mL) insulin pen See Rx Instructions .ROUTE .COMPLEX Qty: 15 0RF Rx Instructions: Inject with meals 2 units sq for blood sugar 1 50-200, 3 units if 201 to 250, 4 units 2 51-300, 5 units 301 to 350, 6 units greater than 350 No Action ferrous gluconate 324 mg (37.5 mg iron) tablet 324 mg PO DAILY aspirin 81 mg tablet,delayed release (DR/EC) 81 mg PO DAILY krill oil 500 mg capsule 500 mg PO DAILY torsemide 40 mg tablet 40 mg PO DAILY Qty: 30 1RF vitamin B complex [B Complex-Vitamin B12] Tablet 1 tab PO DAILY estradiol 0.01 % (0.1 mg/gram) cream See Rx Instructions .ROUTE .COMPLEX Qty: 42.5 3RF Dose Instruction: USE 1 GRAM VAGINALLY THREE TIMES WEEKLY Rx Instructions: USE 1 GRAM VAGINALLY THREE TIMES WEEKLY gabapentin 300 mg capsule See Rx Instructions .ROUTE .COMPLEX Qty: 360 3RF Dose Instruction: TAKE 1 CAPSULE TWICE A DAY IN THE MORNING AND NOON Rx Instructions: TAKE 1 CAPSULE TWICE A DAY IN THE MORNING AND NOON TAKE 2 CAPSULES AT bEDTIME metoprolol succinate 25 mg tablet extended release 24 hr 25 mg PO BID Qty: 180 2RF (DME) fernanda queen See Rx Instructions .Route .MEDSUPPLY Qty: 1 0RF Rx Instructions: As directed amitriptyline 10 mg tablet See Rx Instructions .ROUTE .COMPLEX Qty: 270 3RF Dose Instruction: TAKE 3 TABLETS BY MOUTH AT BEDTIME Rx Instructions: TAKE 3 TABLETS BY MOUTH AT BEDTIME levothyroxine 100 mcg tablet 100 mcg PO DAILY Qty: 90 3RF lisinopril 20 mg tablet 20 mg PO DAILY Qty: 90 3RF ezetimibe 10 mg tablet 10 mg PO DAILY Qty: 90 3RF potassium chloride 20 mEq tablet extended release 20 meq PO DAILY Qty: 90 3RF Rx Instructions: TAKE 1 TABLET DAILY WITH LASIX ropinirole 0.25 mg tablet See Rx Instructions .ROUTE .COMPLEX Qty: 300 2RF Rx Instructions: ;TAKE 3 TABLETS (0.75 MG) AT 5:30 A.M., 2 TABLETS (0.5 MG) AT 12 NOON, 3 TABLETS (0.75 MG) AT 6:30 P.M., AND 2 TABLETS (0.5 MG) AT BEDTIME coQ10 (ubiquinol) 200 mg Capsule 200 mg PO DAILY Discharge Orders: Discharge ED (Routine); Ordered 02/02/24 Ordered By: Cedric Layne Referrals: Mindy Farrar FNP [Primary Care Provider] - 1 week Patient Instructions: How to Give an Insulin Injection (ED), Insulin Pens (ED), Diabetic Hyperglycemia (ED) Activity Restrictions/Additional Instructions: Insulin has been sent to your pharmacy. Please pick it up and use it as directed per sliding scale. Please use with meals, please follow-up with your family practice physician within the next 7 days. Please keep a blood sugar and insulin usage log during this time and take it with you to this appointment. Coding Level of Care Code ED [facility] for Aaron Esparza
[2024-02-02 18:13] LABS: Glucose Point of Care 494 mg/dL (70-110)
[2024-02-02] MEDS: insulin regular-human 100 units/1 mL 10 UNIT IVP (18:19)
[2024-02-02 18:33] VITALS: BP 161/55; PULSE 63; RESP 16; O2SAT 100
[2024-02-02] MEDS: ropinirole 0.25 mg Tablet PO (19:17)
[2024-02-02 19:25] LABS: Glucose Point of Care 337 mg/dL (70-110)
[2024-02-02 19:30] VITALS: BP 176/76; PULSE 56; O2SAT 98
[2024-02-02 20:00] VITALS: BP 168/73; PULSE 58; O2SAT 99
[2024-02-02 21:18] VITALS: BP 168/73; PULSE 58; O2SAT 99
== END 2024-02-02 20:15 | disposition home or self-care (01) ==
PROVIDERS: Emergency Medicine; Physician Assistant; Emergency Provider Emergency Medicine; PCP Nurse Practitioner Family
DX: E11.65 Type 2 diabetes mellitus with hyperglycemia (principal); E11.22 Type 2 diabetes mellitus with diabetic chronic kidney disease; I12.9 Hypertensive chronic kidney disease with stage 1 through stage 4 chronic kidney disease, or unspecified chronic kidney disease; N18.9 Chronic kidney disease, unspecified; I25.10 Atherosclerotic heart disease of native coronary artery without angina pectoris; Z79.82 Long term (current) use of aspirin
CPT/HCPCS: 36416; 36600; 80051; 80053; 82009; 82330; 82805; 82962; 83036; 85025; 96374; 99284; J1815

== ENCOUNTER → 2024-02-09 10:06 | Outpatient (BNVA) | payer MEDICARE, SELFPAY | PROVIDERS: PCP Nurse Practitioner Family; Visit Provider Thoracic Surgery (Cardiothoracic Vascular Surgery) | DX: Z09 Encounter for follow-up examination after completed treatment for conditions other than malignant neoplasm (principal); Z87.2 Personal history of diseases of the skin and subcutaneous tissue | CPT/HCPCS: 99212 ==

== ENCOUNTER → 2024-04-02 12:07 | Outpatient (BNVA) | payer MEDICARE, SELFPAY | PROVIDERS: PCP Nurse Practitioner Family; Visit Provider Nurse Practitioner Family | DX: E11.9 Type 2 diabetes mellitus without complications (principal) | CPT/HCPCS: 80053; 85025 ==

== ENCOUNTER → 2024-04-04 13:41 | Outpatient (BNVA) | payer MEDICARE, SELFPAY | PROVIDERS: PCP Nurse Practitioner Family | DX: R60.9 Edema, unspecified (principal); L03.116 Cellulitis of left lower limb; L03.115 Cellulitis of right lower limb | CPT/HCPCS: 29581; 99213 ==

== ENCOUNTER → 2024-04-06 09:15 | Outpatient (BNVA) | payer MEDICARE, SELFPAY | PROVIDERS: PCP Nurse Practitioner Family; Visit Provider Thoracic Surgery (Cardiothoracic Vascular Surgery) | DX: I87.2 Venous insufficiency (chronic) (peripheral) (principal); R60.0 Localized edema | CPT/HCPCS: 29581 ==

== ENCOUNTER → 2024-04-11 10:40 | Outpatient (BNVA) | payer MEDICARE, SELFPAY | PROVIDERS: PCP Nurse Practitioner Family | DX: R60.0 Localized edema (principal); I87.2 Venous insufficiency (chronic) (peripheral) ==

== ENCOUNTER → 2024-04-18 10:31 | Outpatient (BNVA) | payer MEDICARE, SELFPAY | PROVIDERS: PCP Nurse Practitioner Family | DX: R60.9 Edema, unspecified (principal); E11.9 Type 2 diabetes mellitus without complications | CPT/HCPCS: 29581; 83036 ==

== ENCOUNTER 2024-04-25 09:12 | Outpatient (CLI) | payer MEDICARE, SELFPAY ==
--- NOTE | 2024-04-25 09:15 | USR_ITS ---
PROCEDURE INFORMATION: Exam: US Duplex Lower Extremity Veins, Bilateral Exam date and time: 04/25/2024 9:40 AM Age: 88 years old Clinical indication: Condition or disease; Other: Insufficiency; Prior surgery; Surgery date: 6+ months; Surgery type: Bilat ablasion; Additional info: I87.2 - venous insufficiency (chronic) (peripheral), w/ reflux provocation TECHNIQUE: Imaging protocol: Real-time duplex ultrasound of the bilateral extremities with 2-D morgan scale, color Doppler flow and spectral waveform analysis including responses to compression and other maneuvers (when performed) with image documentation. Complete exam focused on the lower extremity veins. COMPARISON: No relevant prior studies available. FINDINGS: Right deep veins: Unremarkable. The common femoral, femoral, proximal profunda femoral and popliteal veins are patent without thrombus. Normal Doppler waveforms. Normal compressibility and/or augmentation response. Left deep veins: Unremarkable. The common femoral, femoral, proximal profunda femoral and popliteal veins are patent without thrombus. Normal Doppler waveforms. Normal compressibility and/or augmentation response. Superficial veins: The right great saphenous vein is small but patent. The right lesser saphenous vein is patent in the upper calf but appears ablated in the mid and distal segment. The left great saphenous vein is patent from the groin to the knee but appears ablated [id number]. The left lesser saphenous vein appears ablated. Soft tissues: Unremarkable. US/CV kulwinder dup janett [facility] [id number] IMPRESSION: 1. No evidence of lower extremity DVT on either side. 2. The right lesser saphenous vein from the midportion of the distal segment appears ablated. 3. The left great saphenous vein below the knee in the left lesser saphenous vein below the knee appear ablated.
== END 2024-04-25 09:13 | disposition home or self-care (01) ==
PROVIDERS: PCP Nurse Practitioner Family
DX: R60.9 Edema, unspecified (principal); M79.671 Pain in right foot; Z98.890 Other specified postprocedural states; R93.89 Abnormal findings on diagnostic imaging of other specified body structures; I96 Gangrene, not elsewhere classified; I87.2 Venous insufficiency (chronic) (peripheral); L97.821 Non-pressure chronic ulcer of other part of left lower leg limited to breakdown of skin
CPT/HCPCS: 93970; 99213

== ENCOUNTER → 2024-05-02 10:44 | Outpatient (BNVA) | payer MEDICARE, SELFPAY | PROVIDERS: PCP Nurse Practitioner Family | DX: I87.2 Venous insufficiency (chronic) (peripheral) (principal); L97.821 Non-pressure chronic ulcer of other part of left lower leg limited to breakdown of skin; Z09 Encounter for follow-up examination after completed treatment for conditions other than malignant neoplasm | CPT/HCPCS: 99212 ==

== ENCOUNTER → 2024-05-11 10:41 | Outpatient (BNVA) | payer MEDICARE, SELFPAY | PROVIDERS: PCP Nurse Practitioner Family | DX: E11.52 Type 2 diabetes mellitus with diabetic peripheral angiopathy with gangrene (principal); E11.621 Type 2 diabetes mellitus with foot ulcer; L97.821 Non-pressure chronic ulcer of other part of left lower leg limited to breakdown of skin; I87.2 Venous insufficiency (chronic) (peripheral) | CPT/HCPCS: 99212 ==

== ENCOUNTER → 2024-05-15 09:39 | Outpatient (BNVA) | payer MEDICARE, SELFPAY | PROVIDERS: PCP Nurse Practitioner Family; Visit Provider Nurse Practitioner Family | DX: I87.2 Venous insufficiency (chronic) (peripheral) (principal); R60.0 Localized edema; L81.4 Other melanin hyperpigmentation; L82.1 Other seborrheic keratosis; Z08 Encounter for follow-up examination after completed treatment for malignant neoplasm; Z85.828 Personal history of other malignant neoplasm of skin; D48.5 Neoplasm of uncertain behavior of skin | CPT/HCPCS: 11102; 99214 ==

== ENCOUNTER → 2024-05-17 12:09 | Outpatient (BNVA) | payer MEDICARE, SELFPAY | PROVIDERS: PCP Nurse Practitioner Family; Visit Provider Nurse Practitioner Family | DX: N18.4 Chronic kidney disease, stage 4 (severe) (principal); I10 Essential (primary) hypertension | CPT/HCPCS: 80061; 80069; 82043; 84443; 85025 ==

== ENCOUNTER → 2024-05-25 10:38 | Outpatient (BNVA) | payer MEDICARE, SELFPAY | PROVIDERS: PCP Nurse Practitioner Family | DX: Z09 Encounter for follow-up examination after completed treatment for conditions other than malignant neoplasm (principal); Z87.2 Personal history of diseases of the skin and subcutaneous tissue ==

== ENCOUNTER → 2024-06-12 08:48 | Outpatient (BNVA) | payer MEDICARE, SELFPAY | PROVIDERS: PCP Nurse Practitioner Family; Visit Provider Nurse Practitioner Family | DX: I87.2 Venous insufficiency (chronic) (peripheral) (principal); R30.0 Dysuria; D23.72 Other benign neoplasm of skin of left lower limb, including hip | CPT/HCPCS: 99214 ==

== ENCOUNTER → 2024-06-22 09:36 | Outpatient (BNVA) | payer MEDICARE, SELFPAY | PROVIDERS: PCP Nurse Practitioner Family; Visit Provider Thoracic Surgery (Cardiothoracic Vascular Surgery) | DX: Z09 Encounter for follow-up examination after completed treatment for conditions other than malignant neoplasm (principal); Z87.2 Personal history of diseases of the skin and subcutaneous tissue; R60.9 Edema, unspecified | CPT/HCPCS: 99212 ==

== ENCOUNTER → 2024-08-01 12:13 | Outpatient (BNVA) | payer MEDICARE, SELFPAY | PROVIDERS: PCP Nurse Practitioner Family; Visit Provider Nurse Practitioner Family | DX: E11.9 Type 2 diabetes mellitus without complications (principal); I10 Essential (primary) hypertension | CPT/HCPCS: 80053; 80061; 83036; 84443; 85025 ==

== ENCOUNTER → 2024-08-08 11:33 | Outpatient (BNVA) | payer MEDICARE, SELFPAY | PROVIDERS: PCP Nurse Practitioner Family; Visit Provider Nurse Practitioner Family | DX: E11.9 Type 2 diabetes mellitus without complications (principal) | CPT/HCPCS: 80053; 85025 ==

== ENCOUNTER → 2024-08-22 10:46 | Outpatient (BNVA) | payer MEDICARE, SELFPAY | PROVIDERS: PCP Nurse Practitioner Family; Visit Provider Nurse Practitioner Family | DX: E87.5 Hyperkalemia (principal) | CPT/HCPCS: 80048 ==

== ENCOUNTER → 2024-09-19 09:27 | Outpatient (BNVA) | payer MEDICARE, SELFPAY | PROVIDERS: PCP Nurse Practitioner Family; Visit Provider Nurse Practitioner Family | DX: N18.9 Chronic kidney disease, unspecified (principal) | CPT/HCPCS: 80053; 80069; 82043; 82310; 83970; 85025 ==

== ENCOUNTER → 2024-10-03 10:06 | Outpatient (BNVA) | payer MEDICARE, SELFPAY | PROVIDERS: PCP Nurse Practitioner Family; Visit Provider Internal Medicine Nephrology | DX: N18.9 Chronic kidney disease, unspecified (principal); D64.9 Anemia, unspecified; E11.22 Type 2 diabetes mellitus with diabetic chronic kidney disease | CPT/HCPCS: 80069; 80503; 82043; 82310; 82728; 83550; 83970; 84466; 85025; 85045 ==

== ENCOUNTER → 2024-10-16 13:09 | Outpatient (BNVA) | payer MEDICARE, SELFPAY | PROVIDERS: PCP Nurse Practitioner Family; Visit Provider Nurse Practitioner Family | DX: I10 Essential (primary) hypertension (principal) | CPT/HCPCS: 80053; 82310; 83970; 85025 ==

== ENCOUNTER 2024-10-26 01:58 | Emergency (ER) | payer MEDICARE, SELFPAY ==
[2024-10-26 02:01] VITALS: BMI 23.7
--- OUTSIDE RECORDS SUMMARY | 2024-10-26 02:09 | XMS_ITS | Clinical Summary ---
Author Organization [facility] [employer], [facility] Address [address] [place] [address] Phone Care Team Providers Care Fruit I Farmworker Name Role Phone Mindy Farrar NP Primary Care Provider [phone] Allergies Active Allergy Reactions Criticality Noted Date Comments Iodinated Contrast Media High 11/19/2021 Nitrofurantoin Rash Low 11/19/2021 Sulfa Antibiotics Rash Low 11/19/2021 Tetanus Toxoids 11/19/2021 Tetracycline Rash Low 07/28/2022 Medications amitriptyline (ELAVIL) 10 MG tablet Take 3 tablets by mouth at bedtime 2 Active rOPINIRole (REQUIP) 0.25 MG tablet 3 times a day 2 Active potassium chloride 10 MEQ CR tablet 10 mEq 1 (one) time each day 2 Active metoprolol succinate XL (TOPROL XL) 25 MG 24 hr tablet 2 (two) times a day 2 Active Synthroid 100 MCG tablet 1 (one) time each day 2 Active gabapentin (NEURONTIN) 300 MG capsule 2 capsules 3 times daily 2 Active ezetimibe (ZETIA) 10 MG tablet 1 (one) time each day 2 Active estradiol (ESTRACE) 0.1 MG/GM vaginal cream 3 (three) times a week 2 Active lisinopril 20 MG tablet Take 20 mg by mouth 1 (one) time each day Active Cyanocobalamin (VITAMIN B 12 PO) Take 5,000 mcg by mouth 1 (one) time each day Active Ferrous Gluconate (IRON 27 PO) Take by mouth 1 (one) time each day Active KRILL OIL PO Take by mouth 1 (one) time each day Active Coenzyme Q10 (Co Q 10) 100 MG capsule Take by mouth 1 (one) time each day Active aspirin (ST JIMMY) 81 MG EC tablet Take 81 mg by mouth 1 (one) time each day Active Lactobacillus (PROBIOTIC ACIDOPHILUS PO) Take 1 capsule by mouth 1 (one) time each day Active Multiple Vitamins-Mineral s (ICAPS AREDS 2 PO) Take 2 tablets by mouth 1 (one) time each day Active Lantus SoloStar 100 UNIT/ML injection Inject 5 Units under the skin every night 5 Active clobetasol (TEMOVATE) 0.05 % ointment Apply topically 2 (two) times a day 5 Active torsemide (DEMADEX) 20 MG tabletIndication s:Chronic kidney disease, stage 4 (severe) ([facility]) Take 1 tablet (20 mg total) by mouth 1 (one) time each day 90 tablet 3 5 05/24/19 26 Active Ascorbic Acid (vitamin C) 250 MG tablet Take 250 mg by mouth 1 (one) time each day Active Active Problems Problem Noted Date Diagnosed Date Vitamin D deficiency 03/03/2022 Chronic kidney disease, stage 4 (severe) 022 Essential (primary) hypertension 12/16/2021 Type 2 diabetes mellitus wit h other diabetic kidney complication 12/16/2021 Encounters Date Type Department Care Team Description 10/11/2024 Office Communication [facility], [facility] [address] [facility] [address] [place] [phone] Nancie Rice MD 10/11/2024 Results Follow-Up [facility] [address] [place] [address] Patricia Mendenhall 10/11/2024 Documentation Only [facility] [address] [facility] [address] [place] [phone] Elliott Dodge 10/11/2024 Documentation Only [facility], [facility] [address] [place] [address] Elliott Dodge 10/10/2024 Telephone [facility], [facility] [address] [place] [address] Nancie Rice MD 10/01/2024 Results Follow-Up [facility], [facility] [address] [place] [address] Elliott Dodge 10/01/2024 Documentation Only [facility], [facility] [address] [place] [address] Elliott Dodge 09/27/2024 Telephone [facility], [facility] [address] [place] [address] Patricia Mendenhall 09/25/2024 11:00 AM CDT Office Visit [facility], [address] [address] Sol Ann NP Chronic kidney disease stage 4 (HCC) (Primary Dx); Other specified anemia; 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); Other iron deficiency anemia 09/25/2024 Documentation Only [facility], [address] [address] Patricia Mendenhall 09/25/2024 Documentation Only [facility], [address] [address] Patricia Mendenhall 09/19/2024 Telephone [facility], [place] [id number] [place] [address] Patricia Mendenhall from Last 3 Months Family History Medical History Relation Comments Coronary artery disease Brother Diabetes Father Heart disease Father Cancer Mother Diabetes Sibling Gout Sibling Heart disease Sibling Hypertension Sibling Relation Status Comments Brother Father Mother Sibling Alive Social History Tobacco Use Types Packs/Day Years Used Date Smoking Tobacco: Never Tobacco Cessation:Counseling Given: Not Answered Alcohol Use Standard Drinks/Week Comments Never 0 (1 standard drink = 0.6 oz pur e alcohol) Comments Unknown Sex and Gender Information Value Date Recorded Sex Assigned at Not on file Legal Sex Female 10:06 AM EDT Gender Identity Not on file Sexual Orientation Not on file Last Filed Vital Signs Vital Sign Reading Time Taken Comments Blood Pressure 144/70 09/25/2024 11:01 AM CDT Pulse 58 09/25/2024 11:01 AM CDT Temperature - - Respiratory Rate - - Oxygen Saturation 99% 09/25/2024 11:01 AM CDT Inhaled Oxygen Concentration - - Weight 70.8 kg (156 lb) 05/23/2024 10:03 AM HOT PIPE GAUGER Height 167.6 cm (5' 6 ) 05/23/2024 10:03 AM HOT PIPE GAUGER Body Mass Index 25.18 05/23/2024 10:03 AM HOT PIPE GAUGER Plan of Treatment Upcoming Encounters Date Type Department Care Team (Late st Contact Info) Description 01/29/2025 9:20 AM HOT PIPE GAUGER Office Visit [facility], [facility] [address] [place] [address] Nancie Rice MD [address] [facility] [address] [place] [phone] Health Maintenance Due Date Last Done Comments Pneumococcal Vaccine: 50+ Ye ars (1 of 2 - PCV) 1954 Diabetes: Hemoglobin A1C 12/16/2021 05/27/2021 Diabetes: Ophthalmology Exam 12/16/2021 Diabetes: Pedal Pulse Checked 12/16/2021 Diabetes: Sensory Foot Exam 12/16/2021 Diabetes: Visual Foot Exam 12/16/2021 Influenza Vaccine (#1) 2024 Hepatitis B Vaccine Aged Out No longe r eligible based on patient's age to complete this topic Procedures Procedure Name Priority Date/Time Associated Diagnosis Comments RENAL FUNCTION PANEL (EXTERNAL LAB ENTRY) Routine 10/03/2024 PTH, INTACT (EXTERNAL LAB ENTRY) Routine 10/03/2024 CBC (INCLUDES DIFF/PLT) (EXTERNAL LAB ENTRY) Routine 10/03/2024 IRON PANEL (EXTERNAL RESULT ENTRY) Routine 10/03/2024 ALBUMIN/CREATININE, RANDOM URINE (EXTERNAL RESULT ENTRY) Routine 10/03/2024 PTH, INTACT Routine 09/19/2024 9:27 AM CDT Chronic kidney disease stage 4 (HCC) URINE ALBUMIN / CREATININE RATIO Routine 09/19/2024 9:27 AM CDT Chronic kidney disease stage 4 (HCC) CBC Routine 09/19/2024 9:27 AM CDT Chronic kidney disease stage 4 (HCC) RENAL FUNCTION PANEL Routine 09/19/2024 9:27 AM CDT Chronic kidney disease stage 4 (HCC) COMPREHENSIVE METABOLIC PANEL (CMP) (EXTERNAL LAB ENTRY) Routine 09/19/2024 PTH, INTACT Routine 09/19/2024 Chronic kidney disease stage 4 (HCC) URINE ALBUMIN / CREATININE RATIO Routine 09/19/2024 Chronic kidney disease stage 4 (HCC) CBC Routine 09/19/2024 Chronic kidney disease stage 4 (HCC) HEMOGLOBIN A1C (EXTERNAL RESULT ENTRY) Routine 05/27/2021 1:32 PM HOT PIPE GAUGER from Last 3 Months or Most Recently Relevant to Health Maintenance Results * Albumin/Creatinine in Urine (10/03/2024) Albumin, Urine 1 mg/dL Creatinine, Urine Random 72 mg/dL Alb/Creat Ratio, Ur 14 mg/g Creat Urine Urine specimen / Unknown 10/03/2024 Historical Provider MD LAB URINE ORDERABLES Olivia l Result * Iron Panel (10/03/2024) Iron, Total 39 Iron Binding Capacity 272 % Iron Saturation 14.3 Ferritin 30 UIBC 233.0 Blood 10/03/2024 Result [facility] Provider MD LAB BLOOD ORDERABLES Olivia l Result * CBC (Includes Diff/Plt) (External Lab) (10/03/2024) WBC 5.14 K/uL Red Blood Cell Count 3.12 Hemoglobin 9.00 g/dL Hematocrit 29.0 % MCV 92.9 MCH 28.8 MCHC 31.0 RDW 13.0 Platelet Count 227 MPV 11.3 Absolute Neutrophils 3.10 Absolute Lymphocytes 1.1 Absolute Monocytes 0.5 Absolute Eosinophils 0.4 Absolute Basophils 0.0 Neutrophils 60.3 K/uL Lymphocytes 21.8 Monocytes 8.9 Eosinophils 8.0 Basophils 0.8 Blood 10/03/2024 Result [facility] MD LAB BLOOD ORDERABLES Olivia l Result * PTH, Intact (External Lab) (10/03/2024) Pathologist [facility] Parathyroid Hormone, Intact 149.8 pg/mL Blood 10/03/2024 Result [facility] Provider MD LAB BLOOD ORDERABLES Olivia l Result * Renal Function Panel (External Lab) (10/03/2024) Pathologist [facility] Glucose 121 mg/dL BUN 31 mg/dL eGFR 41 Sodium 141 mEq/L Potassium 4.9 mEq/L Chloride 107 Carbon Dioxide 22 mmol/L Calcium 9.9 mg/dL Phosphorus, Serum 4.0 mg/dL Creatinine 1.6 mg/dL Anion Gap 16.9 Albumin 4.0 Blood 10/03/2024 Narrative Elliott Dodge - 10/11/2024 7:11 AM CDT [facility] Result [facility] Provider MD LAB BLOOD ORDERABLES Edit ed Result - Final * Urine albumin / creatinine ratio (09/19/2024 9:27 AM CDT) Only the most recent of2 resultswithin the time period is included. Pathologist [facility] Creatinine, Urine Random 77 mg/dL PRINT/EXTERNA L (NON-INTERFAC ED LABS) Microalbumin 1 ug/dL PRINT/E XTERNA L (NON-INTERFAC ED LABS) Microalb/Creat Ratio, Ur 13 mg/dL PRINT/EXTERNA L (NON-INTERFAC ED LABS) Urine 09/19/2024 9:27 AM CDT us Sol Ann ENERGY DIRECTOR LAB URINE ORDERABLES Olivia clara Result PRINT/EXTERNAL (NON-INTERFACED LABS) * CBC (09/19/2024 9:27 AM CDT) Only the most recent of2 resultswithin the time period is included. WBC 4.74 K/uL PRINT/EXTE RNAL (NON-INTERFACE D LABS) Red Blood Cell Count 3.19 PRINT/EXTERNAL (NON-INTERFACE D LABS) Hemoglobin 9 g/dL PRINT/EXT ERNAL (NON-INTERFACE D LABS) Hematocrit 30.2 % PRINT/EXT ERNAL (NON-INTERFACE D LABS) MCV 94.7 PRINT/EXTE RNAL (NON-INTERFACE D LABS) MCH 28.2 PRINT/EXTE RNAL (NON-INTERFACE D LABS) MCHC 29.8 PRINT/EXTE RNAL (NON-INTERFACE D LABS) RDW 13.6 PRINT/EXTE RNAL (NON-INTERFACE D LABS) Platelet Count 247 PRINT /EXTERNAL (NON-INTERFACE D LABS) MPV 10.8 PRINT/EXTE RNAL (NON-INTERFACE D LABS) Absolute Neutrophils 2.5 PRINT/EXTERNAL (NON-INTERFACE D LABS) Absolute Lymphocytes 1.3 PRINT/EXTERNAL (NON-INTERFACE D LABS) Absolute Monocytes 0.5 PRINT/EXTERNAL (NON-INTERFACE D LABS) Absolute Eosinophils 0.4 PRINT/EXTERNAL (NON-INTERFACE D LABS) Absolute Basophils 0.1 PRINT/EXTERNAL (NON-INTERFACE D LABS) Neutrophils 52.7 K/uL PRINT/EX TERNAL (NON-INTERFACE D LABS) Lymphocytes 26.4 PRINT/EX TERNAL (NON-INTERFACE D LABS) Monocytes 10.1 PRINT/EXTE RNAL (NON-INTERFACE D LABS) Eosinophils 9.3 PRINT/EX TERNAL (NON-INTERFACE D LABS) Basophils 1.3 PRINT/EXTE RNAL (NON-INTERFACE D LABS) Blood 09/19/2024 9:27 AM CDT Sol Ann ENERGY DIRECTOR LAB BLOOD ORDERABLES Olivia l Result Performing Organization Address [facility] de Phone Number PRINT/EXTERNAL (NON-INTERFACED LABS) * PTH, intact (09/19/2024 9:27 AM CDT) Only the most recent of2 resultswithin the time period is included. Parathyroid Hormone, Intact 132.2 pg/mL PRINT/HYPERION ANALYST AL (NON-INTERFACE D LABS) Blood 09/19/2024 9:27 AM CDT Narrative PRINT/EXTERNAL (NON-INTERFACED LABS) - 09/25/2024 9:17 AM CDT [facility] Clinical Laboratory [address] [place] [address] Dr. Luna Palmer, Cataract Lens Generator Sol Ann ENERGY DIRECTOR LAB BLOOD ORDERABLES Olivia l Result Performing Organization Address [facility] de Phone Number PRINT/EXTERNAL (NON-INTERFACED LABS) * Renal function panel (09/19/2024 9:27 AM CDT) Glucose 111 mg/dL PRINT/EXTE RNAL (NON-INTERFACE D LABS) BUN 40 mg/dL PRINT/EXTE RNAL (NON-INTERFACE D LABS) Creatinine 1.7 mg/dL PRINT/EXT ERNAL (NON-INTERFACE D LABS) Sodium 142 mEq/L PRINT/EXTE RNAL (NON-INTERFACE D LABS) Potassium 4.7 mEq/L PRINT/EXTE RNAL (NON-INTERFACE D LABS) Chloride 107 PRINT/EXTE RNAL (NON-INTERFACE D LABS) Carbon Dioxide 21 mmol/L PRINT /EXTERNAL (NON-INTERFACE D LABS) Calcium 9.9 mg/dL PRINT/EXTE RNAL (NON-INTERFACE D LABS) Albumin (Blood) 3.9 g/dL PRIN T/EXTERNAL (NON-INTERFACE D LABS) eGFR 29 PRINT/EXTE RNAL (NON-INTERFACE D LABS) Comment:NKF Blood 09/19/2024 9:27 AM CDT us Sol Ann ENERGY DIRECTOR LAB BLOOD ORDERABLES Olivia l Result PRINT/EXTERNAL (NON-INTERFACED LABS) * Comprehensive Metabolic Panel (CMP) (09/19/2024) Glucose 111 mg/dL BUN 40 mg/dL Creatinine 1.7 mg/dL Sodium 142 mEq/L Potassium 4.7 mEq/L Chloride 21 Carbon Dioxide 21 mmol/L Calcium 9.9 mg/dL Albumin (Blood) 3.9 g/dL AST (SGOT) 13 U/L ALT (SGPT) 13 U/L Alkaline Phosphatase 138 U/L Total Bilirubin 0.20 MG/DL eGFR 39 Total Protein, Serum 6.5 Anion Gap 18.7 Globulin, Total 2.6 g/dL Osmolality Calculation 304 Blood 09/19/2024 Narrative Elliott Dodge - 10/01/2024 11:23 AM CDT OZ Historical Provider LAB BLOOD ORDERABLES Olivia l Result * Hemoglobin A1C (05/27/2021 1:32 PM HOT PIPE GAUGER) Hemoglobin A1C 5.4 Blood specimen (specimen) Venous blood / Unknown 05/27/2021 1:32 PM HOT PIPE GAUGER Narrative Jenny Marcelo MA - 11/19/2021 11:48 AM CDT [facility] lab [facility] Clinical Laboratory [address] [place] [address] Dr. Luna Palmer, Cataract Lens Generator us Stephanie Rincon MD LAB BLOOD ORDERABLES Final Res ult from Last 3 Months or Most Recently Relevant to Health Maintenance Insurance [place] MCR Adv ([id number]) Care Teams Fruit I Farmworker Relationship Specialty Start Date End Date Mindy Farrar, ENERGY DIRECTOR [address] [id number] PCP - General Nurse Practitioner 01/19/24
--- OUTSIDE RECORDS SUMMARY | 2024-10-26 02:09 | XMS_ITS | Encounter Summary ---
Author Organization [facility] Address [address] [place] [address] Care Team Providers Care Washer Carcass Name Role Phone Unavailable Primary Care Provider Unavailabl e Encounter Details Date Type Department Care Team (Late st Contact Info) Description 10/16/2024 Orders Only [facility] [address] [place] [address] Provider, Abstract NO ADDRESS ON FILE Social History Tobacco Use Types Packs/Day Years Used Date Smoking Tobacco: Never Passive Smoke Exposure: Never Smokeless Tobacco: Never Comments Unknown Sex and Gender Information Value Date Recorded Sex Assigned at Not on file Legal Sex Female 1:51 PM REPROGRAPHICS TECHNICIAN Gender Identity Not on file Sexual Orientation Not on file documented as of this encounter Plan of Treatment Upcoming Encounters Date Type Department Care Team (Late st Contact Info) Description 11/22/2024 3:10 PM CDT Office Visit [facility] Endocrinology [facility] [address] [place] [address] [place] [phone] Sandrine Lee MD [address] [place] [address] Manju Duque PA [address] [place] [address] [place] [address] 01/31/2025 10:30 AM REPROGRAPHICS TECHNICIAN Office Visit [facility] [address] [facility] [address] [place] [address] Sundeep Parish MD [address] [facility] [address] [place] [address] documented as of this encounter Procedures Procedure Name Priority Date/Time Associated Diagnosis Comments COMPREHENSIVE METABOLIC PANEL Routine 10/12/2024 9:08 AM CDT ECHO COMPLETE Routine 10/10/2024 9:07 AM CDT LEFT HEART CATH Routine 10/10/2024 9:07 AM CDT documented in this encounter Results * COMPREHENSIVE METABOLIC PANEL (10/12/2024 9:08 AM CDT) Blood us Abstract Provider CHEMISTRY ORDERABLES Final Res ult * ECHO COMPLETE (10/10/2024 9:07 AM CDT) us Abstract Provider ECHO ORDERABLES Final Result * LEFT HEART CATH (10/10/2024 9:07 AM CDT) us Abstract Provider CUP CATH ORDERABLES Final Resu lt documented in this encounter Visit Diagnoses Not on filedocumented in this encounter
--- OUTSIDE RECORDS SUMMARY | 2024-10-26 02:09 | XMS_ITS | Encounter Summary ---
Author Organization [facility] Address [address] [place] [address] Care Team Providers Care Research Professional Name Role Phone Unavailable Primary Care Provider Unavailabl e Encounter Details Date Type Department Care Team (Late st Contact Info) Description 10/24/2024 External Device Data [facility] ABSTRACTION Provider, Abstract NO ADDRESS ON FILE Social History Tobacco Use Types Packs/Day Years Used Date Smoking Tobacco: Never Passive Smoke Exposure: Never Smokeless Tobacco: Never Comments Unknown Sex and Gender Information Value Date Recorded Sex Assigned at Not on file Legal Sex Female 1:51 PM WIRELESS COMMUNICATIONS ENGINEER Gender Identity Not on file Sexual Orientation Not on file documented as of this encounter Plan of Treatment Upcoming Encounters Date Type Department Care Team (Late st Contact Info) Description 11/22/2024 3:10 PM CDT Office Visit [facility] Endocrinology [facility] [address] [phone] Sandrine Lee MD [address] [place] [address] Manju Duque PA [address] [place] [address] [place] [address] 01/31/2025 10:30 AM WIRELESS COMMUNICATIONS ENGINEER Office Visit [facility] Cardiology [facility] [address] [facility] [address] [place] [address] Sundeep Parish MD [address] [facility] [address] [place] [address] documented as of this encounter Visit Diagnoses Not on filedocumented in this encounter
--- OUTSIDE RECORDS SUMMARY | 2024-10-26 02:09 | XMS_ITS | Encounter Summary ---
Author Organization [facility], [facility] Address [address] [facility] [address] [place] [address] Phone Care Team Providers Care Carry Out Clerk And Shelf Stocker Name Role Phone Mindy Farrar TRANSFER KNITTER Primary Care Provider [phone] Encounter Details Date Type Department Care Team (Late st Contact Info) Description 06/18/2021 Orders Only [facility] [address] [facility] [address] [place] [address] Disorder of kidney and ureter, unspecified Social History Tobacco Use Types Packs/Day Years Used Date Smoking Tobacco: Never Assessed Comments Unknown Sex and Gender Information Value Date Recorded Sex Assigned at Not on file Legal Sex Female 10:06 AM EDT Gender Identity Not on file Sexual Orientation Not on file documented as of this encounter Plan of Treatment Upcoming Encounters Date Type Department Care Team (Late st Contact Info) Description 01/29/2025 9:20 AM TECHNICAL ACCOUNT MANAGER Office Visit [facility] [address] [place] [address] Nancie Rice MD [address] [place] [address] documented as of this encounter Visit Diagnoses Diagnosis Disorder of kidney and ureter, unspecified documented in this encounter Care Teams Carry Out Clerk And Shelf Stocker Relationship Specialty Start Date End Date Mindy Farrar NP [address] [place] [address] PCP - General Nurse Practitioner 01/19/24 documented as of this encounter
--- OUTSIDE RECORDS SUMMARY | 2024-10-26 02:09 | XMS_ITS | Encounter Summary ---
Author Organization [facility] Address [address] [place] [address] Care Team Providers Care Production Material Coordinator Name Role Phone Unavailable Primary Care Provider Unavailabl e Encounter Details Date Type Department Care Team (Late st Contact Info) Description 10/23/2024 External Device Data [facility] ABSTRACTION Provider, Abstract NO ADDRESS ON FILE Social History Tobacco Use Types Packs/Day Years Used Date Smoking Tobacco: Never Passive Smoke Exposure: Never Smokeless Tobacco: Never Comments Unknown Sex and Gender Information Value Date Recorded Sex Assigned at Not on file Legal Sex Female 1:51 PM ALLEY WORKER Gender Identity Not on file Sexual Orientation Not on file documented as of this encounter Plan of Treatment Upcoming Encounters Date Type Department Care Team (Late st Contact Info) Description 11/22/2024 3:10 PM CDT Office Visit [facility] Endocrinology [facility] [address] [phone] Sandrine Lee MD [address] [place] [address] Manju Duque PA [address] [place] [address] [place] [phone] 01/31/2025 10:30 AM ALLEY WORKER Office Visit [facility] Cardiology [facility] [address] [facility] [address] [place] [phone] Sundeep Parish MD [address] [facility] [address] [place] [phone] documented as of this encounter Visit Diagnoses Not on filedocumented in this encounter
--- OUTSIDE RECORDS SUMMARY | 2024-10-26 02:09 | XMS_ITS | Encounter Summary ---
Author Organization [facility], [facility] Address [address] [facility] [address] [place] [address] Phone Care Team Providers Care Cma Name Role Phone Mindy Farrar ANNEALER Primary Care Provider [phone] Encounter Details Date Type Department Care Team (Late Contact Info) Description 10/11/2024 Results Follow-Up [facility] [employer], [address] [address] Patricia Mendenhall [address] [facility] [address] [place] [address] Social History Tobacco Use Types Packs/Day Years Used Date Smoking Tobacco: Never Alcohol Use Standard Drinks/Week Comments Never 0 (1 standard drink = 0.6 oz pur e alcohol) Comments Unknown Sex and Gender Information Value Date Recorded Sex Assigned at Not on file Legal Sex Female 10:06 AM EDT Gender Identity Not on file Sexual Orientation Not on file documented as of this encounter Progress Notes * Patricia Mendenhall - 10/11/2024 7:42 AM CDT Courtesy lab documented in this encounter Plan of Treatment Upcoming Encounters Date Type Department Care Team (Late Contact Info) Description 01/29/2025 9:20 AM SAND MIXER MACHINE Office Visit [facility] [employer], [address] [address] Nancie Rice MD [address] [facility] [address] [place] [address] documented as of this encounter Visit Diagnoses Not on filedocumented in this encounter Care Teams Cma Relationship Specialty Start Date End Date Mindy Farrar, ANNEALER [address] [address] PCP - General Nurse Practitioner 01/19/24 documented as of this encounter
--- OUTSIDE RECORDS SUMMARY | 2024-10-26 02:09 | XMS_ITS | Encounter Summary ---
Author Organization [facility] Address [address] [place] [address] Care Team Providers Care Manager Recruiting Name Role Phone Unavailable Primary Care Provider Unavailabl e Reason for Visit * Reason Onset Date Comments 6 week HFU appt with Dr Parish 10/19/2024 Encounter Details Date Type Department Care Team (Late st Contact Info) Description 10/19/2024 Telephone [facility] [address] [facility] [address] [place] [phone] Sundeep Parish MD [address] [facility] [facility] [address] [place] [phone] 6 week HFU appt with Dr Parish Social History Tobacco Use Types Packs/Day Years Used Date Smoking Tobacco: Never Passive Smoke Exposure: Never Smokeless Tobacco: Never Comments Unknown Sex and Gender Information Value Date Recorded Sex Assigned at Not on file Legal Sex Female 1:51 PM LOOM SETTER [employer] Gender Identity Not on file Sexual Orientation Not on file documented as of this encounter Miscellaneous Notes * Telephone Encounter - Suzi Cote - 10/19/2024 11:13 AM CDT Provider: Jem Ansley GE Pt was seen in the ED by Dr Parish and he has recommended a 6 week FU appt with him, please advise. Suzi Cote, [facility] Cardiology [facility], Advanced PSR documented in this encounter Plan of Treatment Upcoming Encounters Date Type Department Care Team (Late st Contact Info) Description 11/22/2024 3:10 PM CDT Office Visit [facility] [address] [place] [address] Sandrine Lee MD [address] [place] [address] Manju Duque, PONCHO [address] [place] [address] 01/31/2025 10:30 AM LOOM SETTER FOURDRIN[employer] Office Visit [facility] [address] [facility] [address] [place] [phone] Sundeep Parish MD [address] [facility] [address] [place] [address] documented as of this encounter Visit Diagnoses Not on filedocumented in this encounter
--- OUTSIDE RECORDS SUMMARY | 2024-10-26 02:09 | XMS_ITS | Encounter Summary ---
Author Organization [facility], [facility] Address [address] [place] [address] Phone Care Team Providers Care Customer Support Consultant Name Role Phone Mindy Farrar NP Primary Care Provider [phone] Encounter Details Date Type Department Care Team (Late st Contact Info) Description 10/01/2024 [facility] [address] [place] [address] Elliott Dodge [address] [place] [address] Social History Tobacco Use Types [...] as of this encounter Progress Notes * Sol Ann NP - 10/01/2024 5:20 PM CDT Reviewed at visit Sol Ann NP * Elliott Dodge - 10/01/2024 1:24 PM CDT As ordered labs documented in this encounter Plan of Treatment Upcoming Encounters Date Type Department Care Team (Late st Contact Info) Description 01/29/2025 9:20 AM TRAVELING CONSTRUCTION SUPERINTENDENT Office Visit [facility] [address] [place] [address] Nancie Rice MD [address] [facility] [address] [place] [id number] documented as of this encounter Visit Diagnoses Not on filedocumented in this encounter Care Teams Customer Support Consultant Relationship Specialty Start Date End Date Mindy Farrar NP [address] [place], [place] [address] PCP - General Nurse Practitioner 01/19/24 documented as of this encounter
--- OUTSIDE RECORDS SUMMARY | 2024-10-26 02:09 | XMS_ITS | Clinical Summary ---
Author Organization [facility] Address [address] [place] [address] Phone Care Team Providers Care Substitute Crossing Guard Name Role Phone Unavailable Primary Care Provider Unavailabl e Allergies Active Allergy Reactions Criticality Noted Date Comments Iodinated Contrast Media Renal Dysfunctions Medium Nitrofurantoin Monohyd/M-Cryst Cough,Fever Low 10/13/2024 Sulfa (Sulfonamide Antibiotics) Hives High 10/13/2024 Tetanus Antitoxin Other (See Comments) 10/14/19 25 Can't remember exactly her symptoms Tetracyclines Swelling Low 10/13/2024 Medications amitriptyline (ELAVIL) 10 mg tablet Take 10 mg by mouth daily at bedtime. Take 3 tablets at bedtime Active aspirin (ECOTRIN EC) 81 mg Tablet, Delayed Release (E.C.) Take 81 mg by mouth daily. Active clobetasoL (TEMOVATE) 0.05 % Gel Apply to affected area 2 times daily as needed. Active coenzyme Q10 100 mg Capsule Take 100 mg by mouth daily. Active estradioL (ESTRACE) 0.01% (0.1 mg/g) vaginal cream Insert 1 Gram vaginally every Tuesday, Tuesday, and Tuesday. Active vit A/vit C/vit E/zinc/copper (ICAPS AREDS ORAL) Take by mouth. Activ e KRILL OIL ORAL Take by mouth daily. Active insulin glargine (LANTUS) 100 unit/mL pen syringe Inject 10 Units by subcutaneous injection daily at bedtime. Active potassium CHLORIDE (K-DUR,KLOR-CO N M20) 20 mEq Extended Release tablet Take 20 mEq by mouth daily. Active saccharomyces boulardii (FLORASTOR) 250 mg Capsule Take 250 mg by mouth daily. Active rOPINIRole (REQUIP) 0.25 mg tablet Take 0.25 mg by mouth 3 times daily. 1 tablet morning, 1 tablet noon and 2 tablets at bedtime Active levothyroxine 100 mcg tablet Take 100 mcg by mouth daily in the morning. Active torsemide (DEMADEX) 20 mg tablet Take 20 mg by mouth daily. Active vit B complex no.12/niacin,B 3, (VITAMIN B COMPLEX NO.12-NIACIN ORAL) Take 5,000 mcg by mouth daily. Active ascorbic acid (VITAMIN C) 500 mg Tablet, Chewable Take 500 mg by mouth daily. Active insulin glargine (LANTUS) 100 unit/mL injection Inject 13 Units by subcutaneous injection daily with breakfast. Active insulin lispro (HumaLOG,ADMEL OG) 100 unit/mL vial Inject by subcutaneous injection 3 times daily with meals. Active gabapentin (NEURONTIN) 300 mg capsule Take 1 Capsule (300 mg) by mouth 3 times daily. 2 capsules 3 times daily 90 Capsule 10/15/19 25 Active metoprolol succinate (TOPROL XL) 25 mg Extended Release 24 hour tablet Take 0.5 Tablets (12.5 mg) by mouth daily. 15 Tablet 10/15/19 25 Active losartan (COZAAR) 50 mg tablet Take 1 Tablet (50 mg) by mouth daily. 30 Tablet 11:39 AM CDT 10/16/19 25 Active ezetimibe (ZETIA) 10 mg tablet Take 10 mg by mouth daily. 025 Discontinued gabapentin (NEURONTIN) 300 mg capsule Take 300 mg by mouth 4 times daily. 2 capsules 3 times daily 025 Discontinued metoprolol succinate (TOPROL XL) 25 mg Extended Release 24 hour tablet Take 25 mg by mouth 2 times daily. 025 Discontinued Active Problems Problem Noted Date Diagnosed Date Hyperparathyroidism 10/14/2024 Chronic anemia 10/14/2024 Sinus bradycardia 10/14/2024 Transaminitis 10/14/2024 Overview (10/14/2024): Shock liver versus medication induced Symptomatic bradycardia 10/13/2024 Hypothyroidism 10/13/2024 Advanced care planning/counseling discussion Chronic kidney disease, stage 4 (severe) 022 Essential (primary) hypertension 12/16/2021 Type 2 diabetes mellitus wit h other diabetic kidney complication 12/16/2021 Encounters Date Type Department Care Team Description 10/24/2024 External Device Data STL ABSTRACTION Provider, Abstract 10/23/2024 External Device Data STL ABSTRACTION Provider, Abstract 10/23/2024 External Device Data ST[facility] ABSTRACTION Provider, Abstract 10/19/2024 Telephone [facility] [address] [place] [phone] Sundeep Parish MD 6 week HFU appt with Dr Parish 10/16/2024 External Device Data STL ABSTRACTION Provider, Abstract 10/16/2024 External Device Data STL ABSTRACTION Provider, Abstract 10/16/2024 External Device Data STL ABSTRACTION Provider, Abstract 10/16/2024 Abstract [facility] [address] [place] [phone] Provider, Abstract 10/16/2024 Orders Only [facility] [address] [place] [phone] Provider, Abstract 10/15/2024 Telephone [facility] Endocrinology [facility] [address] [facility] [address] [place] [phone] Nae Palacios Appointment Notification 10/13/2024 3:37 AM CDT - 10/14/2024 1:19 PM CDT Hospital Encounter [facility] [address] Card[address] [place] [phone] Charo Juárez MD Melton, Gregory A, DO Ovens, Lisa K, MD Symptomatic bradycardia Discharge Disposition: Home or Self Care 10/13/2024 Travel from Last 3 Months Social History Tobacco Use Types Packs/Day Years Used Date Smoking Tobacco: Never Passive Smoke Exposure: Never Smokeless Tobacco: Never Tobacco Cessation:Counseling Given: Not Answered Comments Unknown Sex and Gender Information Value Date Recorded Sex Assigned at Not on file Legal Sex Female 1:51 PM DIRECTOR OF CARDIOLOGY SERVICE LINE Gender Identity Not on file Sexual Orientation Not on file Last Filed Vital Signs Vital Sign Reading Time Taken Comments Blood Pressure 119/51 10/14/2024 9:12 AM CDT Pulse 71 10/14/2024 9:12 AM CDT Temperature 36.5 C (97.7 F) 10/14/2024 9:12 AM CDT Respiratory Rate 14 10/14/2024 9:12 AM CDT Oxygen Saturation 95% 10/14/2024 9:12 AM CDT Inhaled Oxygen Concentration - - Weight 66.9 kg (147 lb 8 oz) 10/14/2024 4:17 AM CDT Height 167.6 cm (5' 6 ) 10/13/2024 3:45 AM CDT Body Mass Index 23.81 10/13/2024 3:45 AM CDT Plan of Treatment Upcoming Encounters Date Type Department Care Team (Late st Contact Info) Description 11/22/2024 3:10 PM CDT Office Visit [facility] Endocrinology [facility] [address] [place] [address] [place] [phone] Sandrine Lee MD [address] [place] [address] DuniaManju Hart PA [address] [place] [address] [place] [phone] 01/31/2025 10:30 AM DIRECTOR OF CARDIOLOGY SERVICE LINE Office Visit [facility] Cardiology [facility] [address] [facility] [address] [place] [phone] Sundeep Parish MD [address] [facility] [address] [place] [phone] Health Maintenance Due Date Last Done Comments DIABETES ANNUAL FOOT EXAM 08/02/1953 DIABETES ANNUAL RETINAL EXAM 08/02/1955 DIABETES MICROALBUMIN ANNUAL SCREEN 08/02/1955 DTAP/TDAP/TD VACCINES (1 - Tdap) 1956 ZOSTER VACCINE (1 of 2) 08/02/1987 OSTEOPOROSIS SCREENING 2002 RSV VACCINE (60+ or ) (1 - 1-dose 75+ series) 2012 COVID-19 Vaccine (2023-2 5 season) 2023 02/02/2023, 03/10/2021, 06/13/2020, Additional history exists INFLUENZA VACCINE (#1) 2024 12/28/2022, 2021 DIABETES HBA1C Q 6 MONTHS 04/15/2025 10/13/2024 LDL CHOLESTEROL ANNUAL 10/09/2025 10/09/2024 PNEUMOCOCCAL VACCINE 50+ YEARS Completed 12/28/2022 Procedures Procedure Name Priority Date/Time Associated Diagnosis Comments TELEMETRY REPORT 10/15/2024 3:22 AM CDT POC GLUCOSE Routine 10/14/2024 11:03 AM CDT POC GLUCOSE Routine 10/14/2024 7:09 AM CDT HEPATIC FUNCTION PANEL Stat 3:33 AM CDT PTH INTACT Routine 10/14/2024 3:33 AM CDT RENAL FUNCTION PANEL Routine 10/14/2024 3:33 AM CDT CBC WITH DIFFERENTIAL Routine 10/14/2024 3:33 AM CDT POC GLUCOSE Routine 10/13/2024 8:14 PM CDT POC GLUCOSE Routine 10/13/2024 5:08 PM CDT US ABDOMEN LIMITED Routine 10/13/2024 3: 38 PM CDT POC GLUCOSE Routine 10/13/2024 11:42 AM CDT EBV ANTIBODY PANEL Routine 10/13/2024 8: 16 AM CDT MONONUCLEOSIS SCREEN W/REFLEX EBV IGM AB Routine 10/13/2024 8:16 AM CDT CMV BY PCR Routine 10/13/2024 8:16 AM CDT HEMOGLOBIN A1C Routine 10/13/2024 8:16 AM CDT CBC WITH DIFFERENTIAL Routine 10/13/2024 8:16 AM CDT CK Routine 10/13/2024 8:15 AM CDT VITAMIN D 25 HYDROXY Routine 10/13/2024 8:15 AM CDT ACUTE HEPATITIS PANEL Routine 10/13/2024 8:15 AM CDT PROTIME-INR Routine 10/13/2024 8:15 AM CDT ETHANOL LEVEL Routine 10/13/2024 8:15 AM CDT ACETAMINOPHEN LEVEL Routine 10/13/2024 8 :15 AM CDT D-DIMER Routine 10/13/2024 8:15 AM CDT TSH Routine 10/13/2024 8:15 AM CDT COMPREHENSIVE METABOLIC PANEL Routine 10/13/2024 8:15 AM CDT MAGNESIUM LEVEL Routine 10/13/2024 8:15 AM CDT PHOSPHORUS Routine 10/13/2024 8:15 AM CDT EKG 12-LEAD Stat 10/13/2024 5:13 AM CDT COMPREHENSIVE METABOLIC PANEL Routine 10/12/2024 9:08 AM CDT ECHO COMPLETE Routine 10/10/2024 9:07 AM CDT LEFT HEART CATH Routine 10/10/2024 9:07 AM CDT LIPID PANEL Routine 10/09/2024 from Last 3 Months Results * TELEMETRY REPORT (10/15/2024 3:22 AM CDT) us Provider Scanning ECG ORDERABLES Final Result * (ABNORMAL) POC GLUCOSE (10/14/2024 11:03 AM CDT) Only the most recent of5 resultswithin the time period is included. Pathologist [facility] GLUCOSE POC 258(H) 74 - 99 mg/dL 10/14/2024 11:03 AM CDT [facility] SPECIMEN SOURCE, GLUCOSE POC Capillary 10/14/2024 11:03 AM CDT [facility] Blood, whole 10/14/2024 11:0 3 AM CDT 10/14/2024 11:17 AM CDT Sandrine Lee MD POINT OF CARE TESTING Final Resu lt [facility] CLIA # [id number] [facility] [address] [place], [place] [address] * (ABNORMAL) CBC WITH DIFFERENTIAL (10/14/2024 3:33 AM CDT) Only the most recent of2 resultswithin the time period is included. Pathologist [facility] WBC 4.9 4.8 - 10.8 K/uL 10/14/2024 4:07 AM T [facility] RBC 3.12(L) 4.20 - 5.40 M/uL 10/14/2024 4:07 AM T [facility] HEMOGLOBIN 9.0(L) 12.0 - 16.0 g/dL 10/14/2024 4:07 AM T [facility] HEMATOCRIT 27.1(L) 36.0 - 46.0 % 10/14/2024 4:07 AM T [facility] MCV 86.9 84.0 - 103.0 fL 10/14/2024 4:07 AM T [facility] MCH 28.8 27.0 - 34.0 pg 10/14/2024 4:07 AM [facility] [employer] [facility] MCHC 33.2 30.0 - 35.0 g/dL 10/14/2024 4:07 AM [facility] [employer] [facility] PLATELETS 192 140 - 440 K/uL 10/14/2024 4:07 AM [facility] [employer] [facility] MPV 10.9 8.9 - 12.8 fL 10/14/2024 4:07 AM [facility] [employer] [facility] RDW 14.1 11.0 - 14.5 % 10/14/2024 4:07 AM [facility] [employer] [facility] RDW-STDEV 44.2 37.0 - 54.0 fL 10/14/2024 4:07 AM [facility] [employer] [facility] NEUTROPHILS 55 42 - 75 % 10/14/2024 4:07 AM [facility] [employer] [facility] LYMPHOCYTES 24 24 - 44 % 10/14/2024 4:07 AM [facility] [employer] [facility] MONOCYTES 12(H) 2 - 10 % 10/14/2024 4:07 AM [facility] [employer] [facility] EOSINOPHILS 8(H) 0 - 7 % 10/14/2024 4:07 AM [facility] [employer] [facility] BASOPHILS 1 0 - 1 % 10/14/2024 4:07 AM [facility] [employer] [facility] IMMATURE GRANULOCYTES 0 0 - 2 % 10/14/2024 4:07 AM [facility] [employer] [facility] NEUTROPHIL ABSOLUTE 2.65 2.00 - 8.00 K/uL 10/14/2024 4:07 AM [facility] [employer] [facility] LYMPHOCYTE ABSOLUTE 1.19(L) 1.20 - 4.00 K/uL 10/14/2024 4:07 AM [facility] MONOCYTE ABSOLUTE 0.58 0.10 - 0.60 K/uL 10/14/2024 4:07 AM [facility] EOSINOPHIL ABSOLUTE 0.39 0.00 - 0.70 K/uL 10/14/2024 4:07 AM [facility] BASOPHILS ABSOLUTE 0.04 0.00 - 0.20 K/uL 10/14/2024 4:07 AM CDT [facility] IMMATURE GRANULOCYTES ABSOLUTE 0.02 0.00 - 0.10 K/uL 10/14/2024 4:07 AM CDT [facility] SMEAR REVIEWED: NA - Not Applicable 10/14/2024 4:07 AM CDT [facility] Blood Venipuncture / Unknown 10/14/2024 3:33 AM CDT 10/14/2024 4:02 AM CDT Sandrine Lee MD HEMATOLOGY ORDERABLES Final Resu lt Performing Organization Address [facility]/ZIP Co de Phone Number [facility] CLIA # [id number] [address] [phone] * (ABNORMAL) PTH INTACT (10/14/2024 3:33 AM CDT) Pathologist [facility] PTH INTACT 155.1(H) 17.9 - 58.6 pg/mL 10/14/2024 4:37 AM CDT [facility] Blood Venipuncture / Unknown 10/14/2024 3:33 AM CDT 10/14/2024 4:03 AM CDT Sandrine Lee MD CHEMISTRY ORDERABLES Final Resul t Performing Organization Address City/[facility]/ZIP Co de Phone Number [facility] CLIA # [id number] [address] [id number] * (ABNORMAL) HEPATIC FUNCTION PANEL (10/14/2024 3:33 AM CDT) Pathologist [facility] TOTAL PROTEIN 6.2(L) 6.4 - 8.3 g/dL 10/14/2024 10:37 AM CDT [facility] ALBUMIN 3.3(L) 3.5 - 5.2 g/dL 10/14/2024 10:37 AM CDT [facility] BILIRUBIN TOTAL 0.5 0.0 - 1.0 mg/dL 10/14/2024 10:37 AM CDT [facility] BILIRUBIN DIRECT 0.3 0.0 - 0.3 mg/dL 10/14/2024 10:37 AM CDT [facility] ALKALINE PHOSPHATASE 446(H) 35 - 104 U/L 10/14/2024 10:37 AM CDT [facility] AST 158(H) 10 - 35 U/L 10/14/2024 10:37 AM T [facility] ALT 442(H) <=35 U/L 10/14/2024 10:37 AM T [facility] Blood Venipuncture / Unknown 10/14/2024 3:33 AM CDT 10/14/2024 4:03 AM CDT us Sandrine Lee MD CHEMISTRY ORDERABLES Final Resul t [facility] CLIA # [id number] [address] [place] [address] * (ABNORMAL) RENAL FUNCTION PANEL (10/14/2024 3:33 AM CDT) SODIUM 139 136 - 145 mmol/L 10/14/2024 4:37 AM CDT [facility] POTASSIUM 3.7 3.5 - 5.1 mmol/L 10/14/2024 4:37 AM T [facility] CHLORIDE 109(H) 98 - 107 mmol/L 10/14/2024 4:37 AM CDT [facility] CO2 19(L) 22 - 29 mmol/L 10/14/2024 4:37 AM CDT [facility] CALCIUM 9.8 8.8 - 10.2 mg/dL 10/14/2024 4:37 AM CDT [facility] BUN 29(H) 8 - 23 mg/dL 10/14/2024 4:37 AM CDT [facility] CREATININE 1.72(H) 0.51 - 0.95 mg/dL 10/14/2024 4:37 AM T [facility] Comment:The GFR result is no t clinically significant on patients <18 or >70 years of age. GLUCOSE 117(H) 74 - 99 mg/dL 10/14/2024 4:37 AM T [facility] ALBUMIN 3.5 3.5 - 5.2 g/dL 10/14/2024 4:37 AM CDT [facility] PHOSPHORUS 2.3(L) 2.5 - 4.5 mg/dL 10/14/2024 4:37 AM CDT [facility] GFR 28 mL/min/1. 73 sq meter 10/14/2024 4:37 AM T [facility] Comment:eGFR calculated with 2020 CKD-EPI equation. Vegetarian diet, extremely high or low muscle mass, and may affect results. Cystatin C with Glomerular Filtration Rate is a suitable alternative for these patients. ANION GAP 11 9 - 20 mmol/L 10/14/2024 4:37 AM CDT [facility] Blood Venipuncture / Unknown 10/14/2024 3:33 AM CDT 10/14/2024 4:03 AM CDT us Sandrine Lee MD CHEMISTRY ORDERABLES Final Resul t [facility] CLIA # [id number] [address] [place] [address] * US ABDOMEN LIMITED (10/13/2024 3:38 PM CDT) Anatomical Region Laterality Modality Abdomen Ultrasound 10/13/2024 3:3 8 PM CDT Impressions 10/13/2024 6:45 PM CDT IMPRESSION: Please see below. Exam: US ABDOMEN LIMITED Date/Time of Exam: 10/13/2024 3:38 PM Reason For Exam: Elevated LFT's. Diagnosis: See Reason for Exam. Findings: No discrete hepatic lesion. Gallbladder unremarkable. Common bile duct diameter within normal limits; 5 mm caliber. Pancreas obscured by bowel gas. No hydronephrosis of right kidney. 2 cm parapelvic cyst right kidney. IMPRESSION: No acute pathology. No discrete hepatic lesion. Narrative Procedure Note Ryan King MD - 10/13/2024 IMPRESSION: Please see below. Exam: US ABDOMEN LIMITED Date/Time of Exam: 10/13/2024 3:38 PM Reason For Exam: Elevated LFT's. Diagnosis: See Reason for Exam. Findings: No discrete hepatic lesion. Gallbladder unremarkable. Common bile duct diameter within normal limits; 5 mm caliber. Pancreas obscured by bowel gas. No hydronephrosis of right kidney. 2 cm parapelvic cyst right kidney. IMPRESSION: No acute pathology. No discrete hepatic lesion. Sandrine Lee MD US ORDERABLES Final Result * MONONUCLEOSIS SCREEN W/REFLEX EBV AB (10/13/2024 8:16 AM CDT) [facility] MONONUCLEOSIS SCREEN Negative Negative 10/13/2024 8:50 AM CDT [facility] [employer] [facility] Comment:Some parts of the po puation with acute IM are heterophile antibody negative Blood Venipuncture / Unknown 10/13/2024 8:16 AM CDT 10/13/2024 8:40 AM CDT Melecio Vazquez DO HEMATOLOGY ORDERABLES Final Result [facility] CLIA # [id number] [address] [place] [id number] * CMV BY PCR (10/13/2024 8:16 AM CDT) [facility] CYTOMEGALOVIRUS, QUANT IU/ML Not Detected IU/mL 10/17/2024 3:15 PM CDT [facility] CYTOMEGALOVIRUS BY PCR, QUANT LOG IU/ML Not Detected log IU/mL 10/17/2024 3:15 PM CDT [facility] Comment: REFERENCE RANGE: NOT DETECTED For additional information, please refer to [email or web address]/[email or web address] (This link is being provided for informational/ educational purposes only.) Blood Venipuncture / Unknown 10/13/2024 8:16 AM CDT 10/13/2024 8:40 AM CDT Narrative [facility] - 10/17/2024 3:15 PM CDT Performing Organization Information: Site ID: [id number] Name: [employer] [place] Address: [address] [place] [address] [place] [address] Director: Ba Isidro M.D.,PhD us Melecio Vazquez DO CHEMISTRY ORDERABLES Final R esult [facility] * (ABNORMAL) EBV ANTIBODY PANEL (10/13/2024 8:16 AM CDT) EBV IGM, VCA <36.00 U/mL 10/16/2024 3:07 AM CDT [facility] Comment: U/mL Interpretation ---- <36.00 Negative 36.00-43.99 Equivocal >43.99 Positive EBV IGG, VCA 108.00(H) U/mL 10/16/2024 3:07 AM CDT [facility] Comment: U/mL Interpretation ---- <18.00 Negative 18.00-21.99 Equivocal >21.99 Positive EBV NUC IGG 65.30(H) U/mL 10/16/2024 3:07 AM CDT [facility] Comment: U/mL Interpretation ---- <18.00 Negative 18.00-21.99 Equivocal >21.99 Positive EBV INTERP: SEE COMMENT 10/16/2024 3:07 AM CDT [facility] Comment: 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 In infants, a similar pattern may occur as a result of passive maternal transfer of antibody. Blood Venipuncture / Unknown 10/13/2024 8:16 AM CDT 10/13/2024 8:50 AM CDT Narrative [facility] - 10/16/2024 3:07 AM CDT Performing Organization Information: Site ID: [place] Name: [employer] Address: [address] [id number] Director: Ben Desai MD us Melecio Vazquez DO CHEMISTRY ORDERABLES Final R esult Performing Organization Address City/[facility] Co de Phone Number [facility] * (ABNORMAL) HEMOGLOBIN A1C (10/13/2024 8:16 AM CDT) Pathologist [facility] HEMOGLOBIN A1C 7.1(H) <=5.6 % 10/13/2024 9:48 AM CDT [facility] EST. AVG GLUCOSE, A1C 157 mg/dL 10/13/2024 9:48 AM CDT [facility] Blood Venipuncture / Unknown 10/13/2024 8:16 AM CDT 10/13/2024 8:40 AM CDT Narrative [facility] - 10/13/2024 9:48 AM CDT HGB A1C INTERPRETATION NORMAL: <5.7% PRE-DIABETES: 5.7 - 6.4% DIABETES: 6.5% OR GREATER Melecio Vazquez DO CHEMISTRY ORDERABLES Final R esult Performing Organization Address [facility]/ZIP Co de Phone Number [facility] CLIA # [id number] [address] [place] [address] [place] [address] * ACUTE HEPATITIS PANEL (10/13/2024 8:15 AM CDT) HEPATITIS B SURFACE AG NON-REACT TAMIKO Non-react tamiko 10/13/2024 10:34 AM CDT [facility] [employer] [facility] Comment:A non-reactive test result does not exclude the possibility of exposure to or infection with hepatitis B. HEPATITIS B CORE IGM NON-REACT TAMIKO Non-react tamiko 10/13/2024 10:34 AM CDT [facility] Comment:IgM antibodies to HB c were not detected; does not exclude the possibility of exposure to HBV. HEPATITIS A IGM Non-react tamiko Non-react tamiko 10/13/2024 10:34 AM CDT [facility] Comment:A negative test resu lt does not exclude the possibility of exposure to Hepatitis A virus. HEPATITIS C AB NON-REACT TAMIKO Non-react tamiko 10/13/2024 10:34 AM CDT [facility] Comment:Antibodies to HCV we re not detected, does not exclude the possibility of exposure to HCV. Blood Venipuncture / Unknown 10/13/2024 8:15 AM CDT 10/13/2024 8:42 AM CDT us Melecio Vazquez DO CHEMISTRY ORDERABLES Final R esult [facility] # [id number] [address] [place] [address] * VITAMIN D 25 HYDROXY (10/13/2024 8:15 AM CDT) Pathologist [facility] VITAMIN D TOTAL (25OH) 35 30 - 100 ng/mL 10/13/2024 10:39 AM CDT [facility] Blood Venipuncture / Unknown 10/13/2024 8:15 AM CDT 10/13/2024 8:42 AM CDT Narrative [facility] - 10/13/2024 10:39 AM CDT Interpretive Data Chart: Deficient: 0 - 20 ng/mL Insufficient: 21 - 29 ng/mL Sufficient: 30 - 100 ng/mL Increased Risk of Hypercalciuria: >100 ng/ml Toxic: >150 ng/ml us Sandrine Lee MD CHEMISTRY ORDERABLES Final Resul t Performing Organization Address [facility] de Phone Number [facility] CLIA # [id number] [facility] [phone] * PROTIME-INR (10/13/2024 8:15 AM CDT) PROTIME 14.5 12.7 - 14.9 Seconds 10/13/2024 8:58 AM CDT [facility] INR 1.1 0.8 - 1.2 10/13/2024 8:58 AM CDT [facility] Blood Venipuncture / Unknown 10/13/2024 8:15 AM CDT 10/13/2024 8:40 AM CDT [facility] - 10/13/2024 8:58 AM CDT Expected Values for INR: DVT/PE Goal INR 2.5; range 2.0 - 3.0 Valve Replacement Tissue Goal INR 2.5; range 2.0 - 3.0 Valve Replacement Mechanical Goal INR 3.0; range 2.5 - 3.5 POST-MT Goal INR 2.5; range 2.0 - 3.0 or Goal INR 3.0; range 2.5 - 3.5 Atrial Fibrillation Goal INR 2.5; range 2.0 - 3.0 Ischemic Stroke Goal INR 2.5; range 2.0 - 3.0 Melecio Vazquez DO HEMATOLOGY ORDERABLES Final Result Performing Organization Address [facility] Co de Phone Number [facility] CLIA # [id number] [facility] [id number] * (ABNORMAL) D-DIMER (10/13/2024 8:15 AM CDT) D-DIMER QUANT 1.93(H) 0.00 - 0.50 ug/mL FEU 10/13/2024 8:58 AM CDT [facility] [employer] [facility] Blood Venipuncture / Unknown 10/13/2024 8:15 AM CDT 10/13/2024 8:40 AM CDT Narrative [facility] - 10/13/2024 8:58 AM CDT D-Dimer assay cutoff value for exclusion of DVT and/or PE is <0.50 ug/mL FEU. As D-Dimer levels increase naturally with age, age stratification for patients over 50 is potentially more appropriate in determining whether a patient should undergo further evaluation for DVT and/or PE than a general cutoff of 0.50 ug/mL FEU. Clinical consideration is recommended. Age Stratified Cutoff Values: 50-60 years: 0.50-0.60 ug/mL FEU 61-70 years: 0.61-0.70 ug/mL FEU 71-80 years: 0.71-0.80 ug/mL FEU us Melecio Vazquez DO HEMATOLOGY ORDERABLES Final Result Performing Organization Address [facility] Co de Phone Number [facility] CLIA # [id number] [address] [address] * TSH (10/13/2024 8:15 AM CDT) [facility] TSH 2.58 0.27 - 4.20 uIU/mL 10/13/2024 9:24 AM CDT [facility] Blood Venipuncture / Unknown 10/13/2024 8:15 AM CDT 10/13/2024 8:42 AM CDT us Melecio Vazquez DO CHEMISTRY ORDERABLES Final R esult Performing Organization Address [facility] Co de Phone Number [facility] CLIA # [id number] [address] [address] * (ABNORMAL) PHOSPHORUS (10/13/2024 8:15 AM CDT) PHOSPHORUS 2.1(L) 2.5 - 4.5 mg/dL 10/13/2024 9:24 AM CDT [facility] Blood Venipuncture / Unknown 10/13/2024 8:15 AM CDT 10/13/2024 8:42 AM CDT us Melecio Vazquez DO CHEMISTRY ORDERABLES Final R esult Performing Organization Address [facility] de Phone Number [facility] CLIA # [id number] [address] [address] * MAGNESIUM LEVEL (10/13/2024 8:15 AM CDT) MAGNESIUM 2.0 1.6 - 2.4 mg/dL 10/13/2024 9:24 AM CDT [facility] Blood Venipuncture / Unknown 10/13/2024 8:15 AM CDT 10/13/2024 8:42 AM CDT us Melecio Vazquez DO CHEMISTRY ORDERABLES Final R esult Performing Organization Address [facility] de Phone Number [facility] CLIA # [id number] [address] [address] * (ABNORMAL) CK (10/13/2024 8:15 AM CDT) CK 265(H) 26 - 192 U/L 10/13/2024 3:48 PM CDT [facility] Blood Venipuncture / Unknown 10/13/2024 8:15 AM CDT 10/13/2024 8:42 AM CDT us Sandrine Lee MD CHEMISTRY ORDERABLES Final Resul t Performing Organization Address [facility] de Phone Number [facility] CLIA # [id number] [address] [place] [address] * ETHANOL LEVEL (10/13/2024 8:15 AM CDT) ETHANOL <10.10 <10.10 mg/dL 10/13/2024 9:24 AM CDT [facility] ETHANOL % <0.01 <=0.01 %w/v 10/13/2024 9:24 AM CDT [facility] Blood Venipuncture / Unknown 10/13/2024 8:15 AM CDT 10/13/2024 8:42 AM CDT us Melecio Vazquez DO CHEMISTRY ORDERABLES Final R esult Performing Organization Address [facility] de Phone Number [facility] CLIA # [id number] [address] [place] [address] * ACETAMINOPHEN LEVEL (10/13/2024 8:15 AM CDT) ACETAMINOPHEN LEVEL <5 0 - 30 ug/mL 10/13/2024 9:51 AM CDT [facility] Blood Venipuncture / Unknown 10/13/2024 8:15 AM CDT 10/13/2024 8:42 AM CDT Narrative [facility] - 10/13/2024 9:51 AM CDT Therapeutic Range: 10-30 ug/mL The following Acetaminophen levels are associated with possible toxicity: 4 hours after dose >200 ug/mL 8 hours after dose >100 ug/mL 12 hours after dose >50 ug/mL us Melecio Vazquez DO CHEMISTRY ORDERABLES Final R esult Performing Organization Address [facility] Co de Phone Number [facility] CLIA # [id number] [address] [place] [address] * (ABNORMAL) COMPREHENSIVE METABOLIC PANEL (10/13/2024 8:15 AM CDT) Only the most recent of2 resultswithin the time period is included. [facility] SODIUM 141 136 - 145 mmol/L 10/13/2024 9:24 AM [facility] POTASSIUM 3.7 3.5 - 5.1 mmol/L 10/13/2024 9:24 AM [facility] CHLORIDE 108(H) 98 - 107 mmol/L 10/13/2024 9:24 AM [facility] CO2 18(L) 22 - 29 mmol/L 10/13/2024 9:24 AM [facility] CALCIUM 10.3(H) 8.8 - 10.2 mg/dL 10/13/2024 9:24 AM [facility] BUN 33(H) 8 - 23 mg/dL 10/13/2024 9:24 AM [facility] CREATININE 1.84(H) 0.51 - 0.95 mg/dL 10/13/2024 9:24 AM [facility] Comment:The GFR result is no t clinically significant on patients <18 or >70 years of age. GLUCOSE 235(H) 74 - 99 mg/dL 10/13/2024 9:24 AM [facility] TOTAL PROTEIN 7.2 6.4 - 8.3 g/dL 10/13/2024 9:24 AM [facility] ALBUMIN 3.8 3.5 - 5.2 g/dL 10/13/2024 9:24 AM [facility] BILIRUBIN TOTAL 1.1(H) 0.0 - 1.0 mg/dL 10/13/2024 9:24 AM [facility] ALKALINE PHOSPHATASE 480(H) 35 - 104 U/L 10/13/2024 9:24 AM [facility] AST 484(H) 10 - 35 U/L 10/13/2024 9:24 AM [facility] ALT 692(H) <=35 U/L 10/13/2024 9:24 AM CDT [facility] GFR 26 mL/min/1. 73 sq meter 10/13/2024 9:24 AM CDT [facility] Comment:eGFR calculated with 2020 CKD-EPI equation. Vegetarian diet, extremely high or low muscle mass, and may affect results. Cystatin C with Glomerular Filtration Rate is a suitable alternative for these patients. 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 : 1935 Requested By: Order Number: [id number] Reading MD: Irina Bucio Measurements Intervals [place] Rate: 72 P: 58 [place]: 140 QRS: 46 QRSD: 78 T: 39 QT: 378 QTc: 413 Interpretive Statements Normal sinus rhythm Possible Inferior infarct, age undetermined Abnormal ECG Electronically Signed On 10-14-2024 13:04:07 CDT by Irina Bucio Procedure Note Provider, Historical - 10/14/[address] [place] [address] Test Date: 2024-10-13 Pat Name: DARRIN MARTINEZ Department: 12 Room: 4102 02 Gender: F 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: [id number] : 1935 Requested By: Order Number: [id number] Reading MD: Irina Bucio Measurements Intervals [place] Rate: 72 P: 58 [place]: 140 QRS: 46 QRSD: 78 T: 39 QT: 378 QTc: 413 Interpretive Statements Normal sinus rhythm Possible Inferior infarct, age undetermined Abnormal ECG Electronically Signed On 10-14-2024 13:04:07 CDT by Irina Bucio us Melecio Vazquez DO ECG ORDERABLES Final Result INTERFACE SYSTEM Refer to clinic/hospital department * ECHO COMPLETE (10/10/2024 9:07 AM CDT) us Abstract Provider ECHO ORDERABLES Final Result * LEFT HEART CATH (10/10/2024 9:07 AM CDT) us Abstract Provider CUP CATH ORDERABLES Final Resu lt * LIPID PANEL (10/09/2024) ABSTRACTED CHOLESTEROL 180 ABSTRACTED TRIGLYCERIDE 71 ABSTRACTED HDL 47 ABSTRACTED LDL CALCULATED 119 Blood 10/09/2024 us Abstract Provider CHEMISTRY ORDERABLES Final Res ult from Last [address] [place] [id number] [place] [address] MEDICARE RX [employer] RX Member Subscriber Plan / Payer (Ef fective 2022-Present) Name:Fortino Darrin Bills Relation to Subscriber:Self Name:Darrin Martinez Herrera Payer ID:Not on file Group ID:[id number] Type:RX Medicare Part D Address: [address] Advance Directives For more information, please contact: [phone] * Full Code (Latest Code Status on File) Date Activated Date Inactivated Comments 10/13/2024 4:28 AM 10/14/2024 3:24 PM
--- OUTSIDE RECORDS SUMMARY | 2024-10-26 02:09 | XMS_ITS | Encounter Summary ---
Author Organization [facility] Address 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 Gender Identity Not on file Sexual Orientation Not on file documented as of this encounter Plan of Treatment Upcoming Encounters Date Type Department Care Team (Late st Contact Info) Description 11/22/2024 3:10 PM CDT Office Visit [facility] Endocrinology [facility] [address] [phone] Sandrine Lee MD [address] [place] [address] Manju Duque PA [address] [place] [address] [place] [phone] 01/31/2025 10:30 AM 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
--- OUTSIDE RECORDS SUMMARY | 2024-10-26 02:09 | XMS_ITS | Clinical Summary ---
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
--- NOTE | 2024-10-26 04:08 | XRR_ITS ---
PROCEDURE INFORMATION: Exam: XR Chest Exam date and time: 10/26/2024 4:44 AM Age: 89 years old Clinical indication: Other: Weakness; Prior surgery; Surgery date: 6+ months; Surgery type: Port TECHNIQUE: Imaging protocol: Radiologic exam of the chest. Views: 1 view. COMPARISON: CR (CHEST, ) 09/10/2024 21:08 FINDINGS: Tubes, catheters and devices: There is a mechanical device overlying the left lung hilum and the 2nd mechanical devices overlie the left side of the heart. Lungs: There is no evidence of focal pulmonary consolidation. Mild prominence of the pulmonary vascularity. There are confluent linear retrocardiac opacities. Pleural spaces: No pleural effusion or pneumothorax. Heart/Mediastinum: Borderline cardiomegaly. Bones/joints: No acute fracture is identified. XR/XR chest 1V portable [id number] IMPRESSION: 1. Borderline cardiomegaly. 2. Mild prominence of the pulmonary vascularity suggestive of cardiopulmonary congestion. 3. Retrocardiac opacities that may represent atelectasis or edema. In the appropriate clinical setting, pneumonia may be considered.
[2024-10-26 04:13] LABS: Hematocrit 29.3 % (36-47); Hemoglobin 9.20 g/dL (11.27-16.99); Mean Corpuscular HGB Conc 31.4 g/dL (30-55); Mean Corpuscular Hemoglobin 30.2 pg (27-33); Mean Corpuscular Volume 96.1 fl (85-98); Nucleated Red Blood Cells % 0 %; Platelet Count 286 10^3/cmm (157-399); Red Blood Count 3.05 10^6/uL (3.85-5.65); White Blood Count 12.67 10^3/uL (3.29-11.43)
[2024-10-26 04:25] LABS: Lactic Sepsis W/Reflex 1.0 mmol/L (0.5-2.2)
[2024-10-26 04:34] LABS: Alanine Aminotransferase 15 U/L (0-33); Albumin Level 3.3 g/dL (3.5-5.2); Alkaline Phosphatase 136 U/L (35-105); Anion Gap 12.9 (5-19); Aspartate Amino Transferase 26 U/L (0-32); Blood Urea Nitrogen 21 mg/dL (8-23); Calcium 9.1 mg/dL (8.5-10.5); Carbon Dioxide 29 mmol/L (22-29); Chloride 106 mmol/L (98-107); Creatinine Clr Calc Pharmacy 25.9668; Globulin 3.8 g/dL (1.3-4.6); Glucose 187 mg/dL (65-115); NT Pro B Type Natriuretic Pept 2789 pg/mL (0-450); Osmolality Calculated 306 mOsm/kg (285-295); Potassium 3.9 mmol/L (3.5-5.1); Sodium 144 mmol/L (136-145); Total Protein 7.1 g/dL (6.6-8.7)
[2024-10-26 05:02] LABS: Glucose Urine UA Negative (Normal); Nitrate Urine Negative (Negative); Specific Gravity, Urine 1.017 (1.005-1.030)
[2024-10-26 05:07] LABS: Add Urine Microscopic? YES
[2024-10-26 05:10] LABS: PCP Screen Urine Negative (Negative)
[2024-10-26 05:28] LABS: UA Slide Review UA Slide Review Perf
--- NOTE | 2024-10-26 05:32 | ECG_ITS ---
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 Measurements Intervals [place] Rate: 54 P: 55 WI: 182 QRS: 30 QRSD: 100 T: 246 QT: 473 QTc: 451 Interpretive Statements SINUS BRADYCARDIA POSSIBLE ANTERIOR MYOCARDIAL INFARCTION , OF INDETERMINATE AGE [30 ms Q WAVE IN V3/V4, OR R < 0.2 mV IN V4] MODERATE T-WAVE ABNORMALITY, CONSIDER LATERAL ISCHEMIA [-0.1+ mV T-WAVE IN I/aVL/V5/V6] MODERATE T-WAVE ABNORMALITY, CONSIDER INFERIOR ISCHEMIA [-0.1+ mV T-WAVE IN II/aVF] Compared to ECG 10/11/2024 10:09:33 Myocardial infarct finding now present Sinus rhythm no longer present T-wave abnormality still present Possible ischemia still present Electronically Signed On 10-26-2024 13:46:17 CDT by Akira Hutchison M.D. [email or web address]
[2024-10-26 05:38] LABS: Respiratory Syncytial Virus Ce NEGATIVE (Negative); SARS-CoV-2 PCR NEGATIVE (Negative)
[2024-10-26 05:53] LABS: Troponin(5th) Baseline 61 ng/L (0-10)
[2024-10-26 05:59] VITALS: BP 149/67; PULSE 54; O2SAT 99
[2024-10-26 06:00] VITALS: TEMP 36.3
--- NOTE | 2024-10-26 06:01 | W.ED.WEAKNES ---
Documented by User: Willam Hopper MD 10/26/24 06:07 HPI - Weakness General: Chief complaint: Weakness Stated complaint: WEAKNESS Time Seen by Provider: 10/26/24 04:59 Source: patient, family and EMS Mode of arrival: EMS Limitations: no limitations History of Present Illness: Patient reports an NV in September and yesterday morning woke up not feeling well and just general had some trouble all day.. In the evening/morning she woke up very clammy and confused and diaphoretic. When EMS arrived they found her blood sugar to be 50 and gave her D10 and brought her to the ED. Currently she is alert and orient x 4 blood sugar on check here was normal. Patient reports she is also been having issues where when she has leg over walker she always has a fear of movement. She reports this is only started since her heart attack. Herself and her significant other with her think she is to be on anxiety medication due to her being constantly in a state of fear now to move independently due to her previous NV Denies any fever chills, diarrhea, dysuria, syncope, headache. Related Data Home Medications ?Medication ?Instructions ?Recorded ?Confirmed aspirin 81 mg tablet,delayed 81 mg PO DAILY 03/19/19 10/16/24 release krill oil 500 mg capsule 500 mg PO DAILY 05/21/20 10/16/24 ferrous gluconate 324 mg (37.5 mg 324 mg PO DAILY 12/04/20 10/16/24 iron) tablet coQ10 (ubiquinol) 200 mg capsule 200 mg PO DAILY 09/13/22 10/16/24 ascorbic acid (vitamin C) 100 mg 100 mg PO DAILY 08/15/24 10/10/24 tablet vitamin B complex 1 tab PO DAILY 10/10/24 10/10/24 gabapentin 300 mg capsule 300 mg PO TID 10/15/24 10/15/24 metoprolol succinate 25 mg 12.5 mg PO DAILY 10/15/24 10/15/24 tablet,extended release 24 hr insulin glargine 100 unit/mL (3 See Rx Instructions .Route .COMPLEX 10/16/24 mL) subcutaneous pen (Lantus Solostar U-100 Insulin) losartan 50 mg tablet (Cozaar) 50 mg PO DAILY 10/16/24 10/16/24 ropinirole 0.25 mg tablet mg PO TID 10/16/24 10/16/24 Previous Rx's ?Medication ?Instructions ?Recorded rollater walker #1 ea 10/11/23 amitriptyline 10 mg tablet See Rx Instructions .Route 10/18/23 .COMPLEX #270 tabs estradiol 0.01% (0.1 mg/gram) See Rx Instructions .Route 06/15/24 vaginal cream .COMPLEX #42.5 grams blood sugar diagnostic (Blood #200 ea 07/19/24 Glucose Test strips) blood-glucose meter #1 ea 07/19/24 lancets #200 ea 07/19/24 blood-glucose sensor (FreeStyle #1 ea 08/08/24 Paula 3 Sensor device) blood-glucose,mate relief,cont #1 ea 08/08/24 (FreeStyle Paula 3 [place]) pen needle, diabetic 32 gauge x #100 ea 08/29/2403/24 insulin lispro 100 unit/mL See Rx Instructions .Route 10/01/24 subcutaneous pen (Humalog KwikPen .COMPLEX #15 mL (U-100) Insulin) potassium chloride 20 mEq 20 meq PO DAILY PRN with torsemide 10/11/24 tablet,extended release #90 tabs torsemide 40 mg tablet 20 mg (1/2 x 40 mg) PO DAILY PRN 10/11/24 weight gain of 3 lbs #30 tabs manual wheelchair #1 ea 10/20/24 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 ea 10/22/24 bedside cammode #1 ea 10/22/24 levothyroxine 100 mcg tablet 100 mcg PO DAILY #90 tabs 10/23/24 Allergies Allergy/AdvReac Type Severity Reaction Status Date / Time Iodinated Contrast Media Allergy Severe fanting Verified 08/15/24 09:37 nitrofurantoin (From Allergy Mild rash Verified 08/15/24 09:37 Macrodantin) Sulfa (Sulfonamide Allergy Mild rash Verified 08/15/24 09:37 Antibiotics) tetanus toxoid, adsorbed Allergy Mild rash Verified 08/15/24 09:37 tetracycline Allergy Mild rash Verified 08/15/24 09:37 Review of Systems General: Reports: 10 or more systems reviewed and unremarkable except in HPI and below PFSH ED PFSH: Medical History Stasis dermatitis Parkinson's disease Chronic kidney disease (~01/2022) Fatty liver Diverticulosis Esophageal dysmotility Cystocele Prolapse of vaginal vault after hysterectomy Peripheral arterial disease Hammertoe of right foot Acquired hypothyroidism Type 2 diabetes mellitus without complications Neuropathy Dyslipidemia Essential (primary) hypertension Controlled restless legs syndrome Arteriosclerotic vascular disease Chronic depression Chronic pain syndrome Obstructive sleep apnea Surgical History H/O ovarian cystectomy (~1960) History of hernia repair (~01/2008) History of total hysterectomy (~1969) Diagnosis: Endometriosis History of bladder repair surgery (~1999) Ring urethropexy Family History Brother CAD (coronary artery disease) Diabetes Father Diabetes Sister Hypertension Heart disease Mother Cancer uterine--- dx age 33 Uterine cancer, Onset Age: 33 Denies family history of Colon cancer Ovarian cancer Hyperlipidemia Breast cancer Thyroid disease Stroke Social History Smoking and tobacco/nicotine status: never used tobacco/nicotine Physical Exam Const: COMMON NORMALS: no acute distress, average body habitus, patient oriented x3, healthy appearing, alert and well nourished GENERAL APPEARANCE: well kempt and well developed HENMT: COMMON NORMALS: normocephalic, atraumatic, external ears normal and moist oral mucous membranes HEAD & SCALP: normocephalic and atraumatic EXTERNAL EAR: Yes external ears normal Eye: COMMON NORMALS: Equal, round and reactive pupils present, EOMs intact bilaterally and conjunctivae normal CONJUNCTIVA: Yes conjunctivae normal PUPIL: Yes Equal, round and reactive pupils present Neck/C-Spine: COMMON NORMALS: full ROM, no lymphadenopathy and supple Chest: CHEST: Yes Symmetrical chest wall rise and No Surgical scars present (Chest) Resp: COMMON NORMALS: normal respiratory effort, No retractions, No use of accessory muscles and clear to auscultation bilaterally AUSCULTATION: clear to auscultation bilaterally Cardio: COMMON NORMALS: regular rate, regular rhythm, S1 normal heart sound present, S2 normal heart sound present, No gallops present (Cardio), No clicks present (Cardio), No murmurs present (Cardio) and No rub (Cardio) RATE: regular rate RHYTHM: regular rhythm HEART SOUNDS: S1 normal heart sound present, S2 normal heart sound present and no murmurs PERIPHERAL PULSES: other (Radial pulses 2+ and symmetric) GI: COMMON NORMALS: Soft to palpation, non-tender and no masses INSPECTION: No abdominal distension PALPATION: Yes Soft to palpation, No Guarding due to palpation present (GI) and No Rebound tenderness present : COMMON NORMALS: Yes no CVA tenderness BLADDER/KIDNEY EXAM: Yes no CVA tenderness Back/Pelvis: COMMON NORMALS: no CVA tenderness Extremity: COMMON NORMALS: normal to inspection, full ROM, capillary refill normal and no clubbing, cyanosis or edema Neuro: COMMON NORMALS: patient oriented x3 SENSORIUM/ORIENTATION: Yes alert Psych: APPEARANCE: Yes well kempt Skin: COMMON NORMALS: no rashes or lesions noted, no wounds, turgor normal and no jaundice GENERAL SKIN EXAM: no rashes or lesions noted and turgor normal Course Vital Signs: Vital signs: Vital Signs Temperature 97.4 F L 10/26/24 06:00 Pulse Rate 68 10/26/24 08:06 Respiratory Rate 16 10/26/24 08:06 Blood Pressure 158/70 10/26/24 08:06 Pulse Oximetry 98 10/26/24 08:06 MDM - Weakness Medical Decision Making Patient with leukocytosis, CKD. Waiting on troponin to result. X-ray of the chest shows cardiomegaly and some mild infiltrate versus edema in the left lower chest Initial EKG done at 2:06 AM. Shows sinus bradycardia rate of 54 with MS interval 182 and a QTc of 460. Less than [address] elevation in lead II and aVF but none in lead III. No reciprocal depressions. Inverted T waves in V3 through V6. No previous comparison. Initial troponin 61, waiting on 2-hour repeat. Elevated BNP at 2789. Flu COVID RSV negative, urine negative. Drug screen negative. Due to shift change, handing off patient to Dr. Baron. Medical Records I reviewed the patient's medical records. Lab Data I reviewed the patient's lab results. 10/26/24 03:20 10/26/24 03:20 Radiology Impressions Chest X-Ray 10/26/24 04:08 IMPRESSION: 1. Borderline cardiomegaly. 2. Mild prominence of the pulmonary vascularity suggestive of cardiopulmonary congestion. 3. Retrocardiac opacities that may represent atelectasis or edema. In the appropriate clinical setting, pneumonia may be considered. Laboratory Results WBC 12.67 10^3/uL (3.29-11.43) H 10/26/24 03:20 RBC 3.05 10^6/uL (3.85-5.65) L 10/26/24 03:20 Hgb 9.20 g/dL (11.27-16.99) L 10/26/24 03:20 Hct 29.3 % (36-47) L 10/26/24 03:20 MCV 96.1 fl (85-98) 10/26/24 03:20 MCH 30.2 pg (27-33) 10/26/24 03:20 MCHC 31.4 g/dL (30-55) 10/26/24 03:20 RDW 14.7 % (12.1-15.1) 10/26/24 03:20 Plt Count 286 10^3/cmm (157-399) 10/26/24 03:20 MPV 10.0 fL (7.4-10.4) 10/26/24 03:20 Neut % (Auto) 74.8 % 10/26/24 03:20 Lymph % (Auto) 17.4 % 10/26/24 03:20 [place] % (Auto) 5.2 % 10/26/24 03:20 Eos % (Auto) 1.5 % 10/26/24 03:20 Baso % (Auto) 0.3 % 10/26/24 03:20 Neut # (Auto) 9.47 10^3/uL (1.8-7.7) H 10/26/24 03:20 Lymph # (Auto) 2.2 10^3/uL (0.8-4.8) 10/26/24 03:20 [place] # (Auto) 0.7 10^3/uL (0.2-0.9) 10/26/24 03:20 Eos # (Auto) 0.2 10^3/uL (0.0-0.8) 10/26/24 03:20 Baso # (Auto) 0.0 10^3/uL (0.0-0.1) 10/26/24 03:20 Nucleated RBC % (auto) 0 % 10/26/24 03:20 Nucleated RBCs # 0.0 /100WBC 10/26/24 03:20 Sodium 144 mmol/L (136-145) 10/26/24 03:20 Potassium 3.9 mmol/L (3.5-5.1) 10/26/24 03:20 Chloride 106 mmol/L (98-107) 10/26/24 03:20 Carbon Dioxide 29 mmol/L (22-29) 10/26/24 03:20 Anion Gap 12.9 (5-19) 10/26/24 03:20 BUN 21 mg/dL (8-23) 10/26/24 03:20 Creatinine 1.5 mg/dL (0.5-0.9) H 10/26/24 03:20 GFR Calculation Not Reportable 10/26/24 03:20 Glucose 187 mg/dL (65-115) H 10/26/24 03:20 POC Glucose 79 mg/dL (70-110) 10/26/24 07:13 Calculated Osmolality 306 mOsm/kg (285-295) H 10/26/24 03:20 Lactic Acid 1.0 mmol/L (0.5-2.2) 10/26/24 03:20 Calcium 9.1 mg/dL (8.5-10.5) 10/26/24 03:20 Total Bilirubin 0.3 mg/dL (0.15-1.2) 10/26/24 03:20 AST 26 U/L (0-32) 10/26/24 03:20 ALT 15 U/L (0-33) 10/26/24 03:20 Alkaline Phosphatase 136 U/L (35-105) H 10/26/24 03:20 Troponin T Baseline 61 ng/L (0-10) H 10/26/24 03:20 Troponin T 120 Minute 29.96 ng/L (0-10) H 10/26/24 05:42 Delta Troponin T -31.04 ABS# (0-10) L 10/26/24 05:42 NT-Pro-B Natriuret Pep 2789 pg/mL (0-450) H 10/26/24 03:20 Total Protein 7.1 g/dL (6.6-8.7) 10/26/24 03:20 Albumin 3.3 g/dL (3.5-5.2) L 10/26/24 03:20 Globulin 3.8 g/dL (1.3-4.6) 10/26/24 03:20 Urine Color Yellow (Yellow) 10/26/24 04:41 Urine Appearance Clear (CLEAR) 10/26/24 04:41 Urine pH 5.5 (5-7) 10/26/24 04:41 Ur Specific [place] 1.017 (1.005-1.030) 10/26/24 04:41 Urine Protein Negative (Negative) 10/26/24 04:41 Urine Glucose (UA) Negative (Normal) 10/26/24 04:41 Urine Ketones Negative (Negative) 10/26/24 04:41 Urine Blood Negative (Negative) 10/26/24 04:41 Urine Nitrate Negative (Negative) 10/26/24 04:41 Urine Bilirubin Negative (Negative) 10/26/24 04:41 Urine Urobilinogen 0.2 mg/dL (Negative) 10/26/24 04:41 Ur Leukocyte Esterase Negative (Negative) 10/26/24 04:41 Urine RBC 0-2 /hpf (0-2) 10/26/24 04:41 Urine WBC 0-5 /hpf (0-5) 10/26/24 04:41 Ur Squamous Epith Cells 0-5 /hpf (0-5) 10/26/24 04:41 Amorphous Sediment Not Reportable 10/26/24 04:41 Urine Bacteria None seen /hpf (NONE) 10/26/24 04:41 Hyaline Casts 0.40 /lpf 10/26/24 04:41 Urine Opiates Screen Negative ng/mL (Negative) 10/26/24 04:41 Ur Barbiturates Screen Negative ng/mL (Negative) 10/26/24 04:41 Ur Phencyclidine Scrn Negative ng/mL (Negative) 10/26/24 04:41 Ur Amphetamines Screen Negative ng/mL (Negative) 10/26/24 04:41 U Benzodiazepines Scrn Negative ng/mL (Negative) 10/26/24 04:41 Urine Cocaine Screen Negative ng/mL (Negative) 10/26/24 04:41 U Marijuana (THC) Screen Negative ng/mL (Negative) 10/26/24 04:41 Influenza A (PCR) Negative (Negative) 10/26/24 04:41 Influenza Type B (PCR) Negative (Negative) 10/26/24 04:41 RSV (PCR) Negative (Negative) 10/26/24 04:41 SARS-CoV-2 (PCR) Negative (Negative) 10/26/24 04:41 All radiology interpretation(s) finalized by discharge Discharge Plan Discharge Patient Disposition: Home Clinical Impression: Hypoglycemia, Essential (primary) hypertension Type 2 diabetes mellitus without complications Qualifiers: Diabetes mellitus 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 Qualified Code(s): E11.9 - Type 2 diabetes mellitus without complications Condition: Stable Prescriptions: No Action ferrous gluconate 324 mg (37.5 mg iron) tablet 324 mg PO DAILY aspirin 81 mg tablet,delayed release (DR/EC) 81 mg PO DAILY krill oil 500 mg capsule 500 mg PO DAILY gabapentin 300 mg capsule 300 mg PO TID metoprolol succinate 25 mg tablet extended release 24 hr 12.5 mg PO DAILY losartan [Cozaar] 50 mg tablet 50 mg PO DAILY insulin glargine [Lantus Solostar U-100 Insulin] 100 unit/mL (3 mL) insulin pen See Rx Instructions .ROUTE .COMPLEX Dose Instruction: INJECT 15 UNITS SUBCUTANEOUSLY TWICE DAILY Rx Instructions: INJECT 13 UNITS SUBCUTANEOUSLY AM 10 UNITS SQ AT BEDTIME ropinirole 0.25 mg tablet PO TID ascorbic acid (vitamin C) 100 mg tablet 100 mg PO DAILY (DME) FreeStyle Paula 3 Sensor Device See Rx Instructions .Route Qty: 1 0RF Rx Instructions: check blood sugar three times daily and prn (DME) FreeStyle Paula 3 [place] Misc See Rx Instructions .Route Qty: 1 12RF Rx Instructions: check blood sugar three times daily and prn (DME) rollater walker See Rx Instructions .Route .MEDSUPPLY Qty: 1 0RF Rx Instructions: As directed amitriptyline 10 mg tablet See Rx Instructions .ROUTE .COMPLEX Qty: 270 3RF Dose Instruction: TAKE 3 TABLETS BY MOUTH AT BEDTIME Rx Instructions: TAKE 3 TABLETS BY MOUTH AT BEDTIME estradiol 0.01 % (0.1 mg/gram) cream See Rx Instructions .ROUTE .COMPLEX Qty: 42.5 3RF Dose Instruction: USE 1 GRAM VAGINALLY THREE TIMES WEEKLY Rx Instructions: USE 1 GRAM VAGINALLY THREE TIMES WEEKLY (DME) blood-glucose meter Misc See Rx Instructions .MEDSUPPLY Qty: 1 0RF Rx Instructions: Use as directed for checking blood sugar daily (DME) Blood Glucose Test Strip See Rx Instructions .MEDSUPPLY Qty: 200 12RF Rx Instructions: Use as directed with glucometer to check blood sugar daily (DME) lancets Misc See Rx Instructions .MEDSUPPLY Qty: 200 12RF Rx Instructions: Use as directed to prick skin for blood sugar checks daily (DME) pen needle, diabetic 32 gauge x 1/4 needle See Rx Instructions .Route Qty: 100 4RF Rx Instructions: use with insulin 4 times daily insulin lispro [Humalog KwikPen Insulin] 100 unit/mL insulin pen See Rx Instructions .ROUTE .COMPLEX Qty: 15 0RF Dose Instruction: INJECT PER SLIDING SCALE SUBCUTANEOUSLY THREE TIMES DAILY. 150-200: THREE UNITS; 201-250: FIVE UNITS; 251-300: SEVEN UNITS; 301-350: 9 UNITS; 351-400: 11 UNITS Rx Instructions: INJECT PER SLIDING SCALE SUBCUTANEOUSLY THREE TIMES DAILY. 150-200: THREE UNITS; 201-250: FIVE UNITS; 251-300: SEVEN UNITS; 301-350: 9 UNITS; 351-400: 11 UNITS (DME) manual wheelchair See Rx Instructions .Route .MEDSUPPLY Qty: 1 0RF Rx Instructions: MAGI 99 (DME) 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 See Rx Instructions .Route .MEDSUPPLY Qty: 1 0RF Rx Instructions: As directed (DME) bedside cammode See Rx Instructions .Route .MEDSUPPLY Qty: 1 0RF Rx Instructions: As directed levothyroxine 100 mcg tablet 100 mcg PO DAILY Qty: 90 1RF coQ10 (ubiquinol) 200 mg Capsule 200 mg PO DAILY vitamin B complex Tablet Extended Release 1 tab PO DAILY potassium chloride 20 mEq tablet extended release 20 meq PO DAILY PRN (Reason: with torsemide) Qty: 90 3RF Rx Instructions: TAKE 1 TABLET DAILY WITH LASIX torsemide 40 mg tablet 20 mg PO DAILY PRN (Reason: weight gain of 3 lbs) Qty: 30 1RF Discharge Orders: Discharge ED (Routine); Ordered 10/26/24 Ordered By: Tramaine Vernon Referrals: Mindy Farrar FNP [Primary Care Provider, Family Practice] Patient Instructions: Opioid Safety, Pain Management, Patient Portal & [place] Instructions Activity Restrictions/Additional Instructions: [facility] you [facility]. It is very important that you follow up as instructed or that you return to the Emergency Department should you have concerns or if your condition changes or worsens in any way. You are seen emergency room with low blood sugars. Blood sugar improved with IV glucose. Recommend you decrease your long-acting insulin (Lantus) to 10 units in the morning and 8 units at night. Your blood sugars will likely run a little bit high with this follow-up with your primary care doctor to review your blood sugars and make further adjustments. Print Language: Slovak Sign Out Sign Out Data: Patient Sign Out occurred on 10/26/24 at 06:36. Patient's care was discussed, and care was transferred from Willam Hopper MD to Tramaine Vernon DO. 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 Fwd Documented by User: Tramaine Vernon DO 10/26/24 14:51 HPI - Weakness General: Chief complaint: Weakness Stated complaint: WEAKNESS Time Seen by Provider: 10/26/24 04:59 Related Data Home Medications ?Medication ?Instructions ?Recorded ?Confirmed aspirin 81 mg tablet,delayed 81 mg PO DAILY 03/19/19 10/16/24 release krill oil 500 mg capsule 500 mg PO DAILY 05/21/20 10/16/24 ferrous gluconate 324 mg (37.5 mg 324 mg PO DAILY 12/04/20 10/16/24 iron) tablet coQ10 (ubiquinol) 200 mg capsule 200 mg PO DAILY 09/13/22 10/16/24 ascorbic acid (vitamin C) 100 mg 100 mg PO DAILY 08/15/24 10/10/24 tablet vitamin B complex 1 tab PO DAILY 10/10/24 10/10/24 gabapentin 300 mg capsule 300 mg PO TID 10/15/24 10/15/24 metoprolol succinate 25 mg 12.5 mg PO DAILY 10/15/24 10/15/24 tablet,extended release 24 hr insulin glargine 100 unit/mL (3 See Rx Instructions .Route .COMPLEX 10/16/24 mL) subcutaneous pen (Lantus Solostar U-100 Insulin) losartan 50 mg tablet (Cozaar) 50 mg PO DAILY 10/16/24 10/16/24 ropinirole 0.25 mg tablet mg PO TID 10/16/24 10/16/24 Previous Rx's ?Medication ?Instructions ?Recorded fernanda walker #1 ea 10/11/23 amitriptyline 10 mg tablet See Rx Instructions .Route 10/18/23 .COMPLEX #270 tabs estradiol 0.01% (0.1 mg/gram) See Rx Instructions .Route 06/15/24 vaginal cream .COMPLEX #42.5 grams blood sugar diagnostic (Blood #200 ea 07/19/24 Glucose Test strips) blood-glucose meter #1 07/19/24 lancets #200 07/19/24 blood-glucose sensor (FreeStyle #1 08/08/24 Paula 3 Sensor device) blood-glucose,mate relief,cont #1 08/08/24 (FreeStyle Paula 3 [place]) pen needle, diabetic 32 gauge x #100 ea 08/29/24/ insulin lispro 100 unit/mL See Rx Instructions .Route 10/01/24 subcutaneous pen (Humalog KwikPen .COMPLEX #15 mL (U-100) Insulin) potassium chloride 20 mEq 20 meq PO DAILY PRN with torsemide 10/11/24 tablet,extended release #90 tabs torsemide 40 mg tablet 20 mg (1/2 x 40 mg) PO DAILY PRN 10/11/24 weight gain of 3 lbs #30 tabs manual wheelchair #1 ea 10/20/24 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 ea 10/22/24 bedside cammode #1 ea 10/22/24 levothyroxine 100 mcg tablet 100 mcg PO DAILY #90 tabs 10/23/24 Allergies Allergy/AdvReac Type Severity Reaction Status Date / Time Iodinated Contrast Media Allergy Severe fanting Verified 08/15/24 09:37 nitrofurantoin (From Allergy Mild rash Verified 08/15/24 09:37 Macrodantin) Sulfa (Sulfonamide Allergy Mild rash Verified 08/15/24 09:37 Antibiotics) tetanus toxoid, adsorbed Allergy Mild rash Verified 08/15/24 09:37 tetracycline Allergy Mild rash Verified 08/15/24 09:37 [facility] ED PFSH: Medical History Stasis dermatitis Parkinson's disease Chronic kidney disease (~01/2022) Fatty liver Diverticulosis Esophageal dysmotility Cystocele Prolapse of vaginal vault after hysterectomy Peripheral arterial disease Hammertoe of right foot Acquired hypothyroidism Type 2 diabetes mellitus without complications Neuropathy Dyslipidemia Essential (primary) hypertension Controlled restless legs syndrome Arteriosclerotic vascular disease Chronic depression Chronic pain syndrome Obstructive sleep apnea Surgical History H/O ovarian cystectomy (~1959) History of hernia repair (~01/2008) History of total hysterectomy (~1969) Diagnosis: Endometriosis History of bladder repair surgery (~1999) Ring urethropexy Family History Brother CAD (coronary artery disease) Diabetes Father Diabetes Sister Hypertension Heart disease Mother Cancer uterine--- dx age 33 Uterine cancer, Onset Age: 33 Denies family history of Colon cancer Ovarian cancer Hyperlipidemia Breast cancer Thyroid disease Stroke Social History Smoking and tobacco/nicotine status: never used tobacco/nicotine Course Vital Signs: Vital signs: Vital Signs Temperature 97.4 F L 10/26/24 06:00 Pulse Rate 68 10/26/24 08:06 Respiratory Rate 16 10/26/24 08:06 Blood Pressure 158/70 10/26/24 08:06 Pulse Oximetry 98 10/26/24 08:06 MDM - Weakness Medical Decision Making Patient with leukocytosis, CKD. Waiting on troponin to result. X-ray of the chest shows cardiomegaly and some mild infiltrate versus edema in the left lower chest Initial EKG done at 2:06 AM. Shows sinus bradycardia rate of 54 with MS interval 182 and a QTc of 460. Less than [address] elevation in lead II and aVF but none in lead III. No reciprocal depressions. Inverted T waves in V3 through V6. No previous comparison. Initial troponin 61, waiting on 2-hour repeat. Elevated BNP at 2789. Flu COVID RSV negative, urine negative. Drug screen negative. Due to shift change, handing off patient to Dr. Baron. 2-hour troponin negative patient states she is feeling much better. She denies orthopnea. She is not having any shortness of breath or chest discomfort at this time. After discussion the patient will discharge her home adjustments made to her insulin. We recommended that she decrease Lantus to 10 units in the morning and 8 units at night and continue her sliding scale follow-up with her primary care doctor next week. She develops any worsening shortness of breath or persistent hyperglycemia return Lab Data 10/26/24 03:20 10/26/24 03:20 Radiology Impressions Chest X-Ray 10/26/24 04:08 IMPRESSION: 1. Borderline cardiomegaly. 2. Mild prominence of the pulmonary vascularity suggestive of cardiopulmonary congestion. 3. Retrocardiac opacities that may represent atelectasis or edema. In the appropriate clinical setting, pneumonia may be considered. Laboratory Results WBC 12.67 10^3/uL (3.29-11.43) H 10/26/24 03:20 RBC 3.05 10^6/uL (3.85-5.65) L 10/26/24 03:20 Hgb 9.20 g/dL (11.27-16.99) L 10/26/24 03:20 Hct 29.3 % (36-47) L 10/26/24 03:20 MCV 96.1 fl (85-98) 10/26/24 03:20 MCH 30.2 pg (27-33) 10/26/24 03:20 MCHC 31.4 g/dL (30-55) 10/26/24 03:20 RDW 14.7 % (12.1-15.1) 10/26/24 03:20 Plt Count 286 10^3/cmm (157-399) 10/26/24 03:20 MPV 10.0 fL (7.4-10.4) 10/26/24 03:20 Neut % (Auto) 74.8 % 10/26/24 03:20 Lymph % (Auto) 17.4 % 10/26/24 03:20 [place] % (Auto) 5.2 % 10/26/24 03:20 Eos % (Auto) 1.5 % 10/26/24 03:20 Baso % (Auto) 0.3 % 10/26/24 03:20 Neut # (Auto) 9.47 10^3/uL (1.8-7.7) H 10/26/24 03:20 Lymph # (Auto) 2.2 10^3/uL (0.8-4.8) 10/26/24 03:20 [place] # (Auto) 0.7 10^3/uL (0.2-0.9) 10/26/24 03:20 Eos # (Auto) 0.2 10^3/uL (0.0-0.8) 10/26/24 03:20 Baso # (Auto) 0.0 10^3/uL (0.0-0.1) 10/26/24 03:20 Nucleated RBC % (auto) 0 % 10/26/24 03:20 Nucleated RBCs # 0.0 /100WBC 10/26/24 03:20 Sodium 144 mmol/L (136-145) 10/26/24 03:20 Potassium 3.9 mmol/L (3.5-5.1) 10/26/24 03:20 Chloride 106 mmol/L (98-107) 10/26/24 03:20 Carbon Dioxide 29 mmol/L (22-29) 10/26/24 03:20 Anion Gap 12.9 (5-19) 10/26/24 03:20 BUN 21 mg/dL (8-23) 10/26/24 03:20 Creatinine 1.5 mg/dL (0.5-0.9) H 10/26/24 03:20 GFR Calculation Not Reportable 10/26/24 03:20 Glucose 187 mg/dL (65-115) H 10/26/24 03:20 POC Glucose 79 mg/dL (70-110) 10/26/24 07:13 Calculated Osmolality 306 mOsm/kg (285-295) H 10/26/24 03:20 Lactic Acid 1.0 mmol/L (0.5-2.2) 10/26/24 03:20 Calcium 9.1 mg/dL (8.5-10.5) 10/26/24 03:20 Total Bilirubin 0.3 mg/dL (0.15-1.2) 10/26/24 03:20 AST 26 U/L (0-32) 10/26/24 03:20 ALT 15 U/L (0-33) 10/26/24 03:20 Alkaline Phosphatase 136 U/L (35-105) H 10/26/24 03:20 Troponin T Baseline 61 ng/L (0-10) H 10/26/24 03:20 Troponin T 120 Minute 29.96 ng/L (0-10) H 10/26/24 05:42 Delta Troponin T -31.04 ABS# (0-10) L 10/26/24 05:42 NT-Pro-B Natriuret Pep 2789 pg/mL (0-450) H 10/26/24 03:20 Total Protein 7.1 g/dL (6.6-8.7) 10/26/24 03:20 Albumin 3.3 g/dL (3.5-5.2) L 10/26/24 03:20 Globulin 3.8 g/dL (1.3-4.6) 10/26/24 03:20 Urine Color Yellow (Yellow) 10/26/24 04:41 Urine Appearance Clear (CLEAR) 10/26/24 04:41 Urine pH 5.5 (5-7) 10/26/24 04:41 Ur Specific [place] Furnace 1.017 (1.005-1.030) 10/26/24 04:41 Urine Protein Negative (Negative) 10/26/24 04:41 Urine Glucose (UA) Negative (Normal) 10/26/24 04:41 Urine Ketones Negative (Negative) 10/26/24 04:41 Urine Blood Negative (Negative) 10/26/24 04:41 Urine Nitrate Negative (Negative) 10/26/24 04:41 Urine Bilirubin Negative (Negative) 10/26/24 04:41 Urine Urobilinogen 0.2 mg/dL (Negative) 10/26/24 04:41 Ur Leukocyte Esterase Negative (Negative) 10/26/24 04:41 Urine RBC 0-2 /hpf (0-2) 10/26/24 04:41 Urine WBC 0-5 /hpf (0-5) 10/26/24 04:41 Ur Squamous Epith Cells 0-5 /hpf (0-5) 10/26/24 04:41 Amorphous Sediment Not Reportable 10/26/24 04:41 Urine Bacteria None seen /hpf (NONE) 10/26/24 04:41 Hyaline Casts 0.40 /lpf 10/26/24 04:41 Urine Opiates Screen Negative ng/mL (Negative) 10/26/24 04:41 Ur Barbiturates Screen Negative ng/mL (Negative) 10/26/24 04:41 Ur Phencyclidine Scrn Negative ng/mL (Negative) 10/26/24 04:41 Ur Amphetamines Screen Negative ng/mL (Negative) 10/26/24 04:41 U Benzodiazepines Scrn Negative ng/mL (Negative) 10/26/24 04:41 Urine Cocaine Screen Negative ng/mL (Negative) 10/26/24 04:41 U Marijuana (THC) Screen Negative ng/mL (Negative) 10/26/24 04:41 Influenza A (PCR) Negative (Negative) 10/26/24 04:41 Influenza Type B (PCR) Negative (Negative) 10/26/24 04:41 RSV (PCR) Negative (Negative) 10/26/24 04:41 SARS-CoV-2 (PCR) Negative (Negative) 10/26/24 04:41 Discharge Plan Discharge Patient Disposition: Home Clinical Impression: Hypoglycemia, Essential (primary) hypertension Type 2 diabetes mellitus without complications 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 Qualified Code(s): E11.9 - Type 2 diabetes mellitus without complications Condition: Stable Prescriptions: No Action ferrous gluconate 324 mg (37.5 mg iron) tablet 324 mg PO DAILY aspirin 81 mg tablet,delayed release (DR/EC) 81 mg PO DAILY krill oil 500 mg capsule 500 mg PO DAILY gabapentin 300 mg capsule 300 mg PO TID metoprolol succinate 25 mg tablet extended release 24 hr 12.5 mg PO DAILY losartan [Cozaar] 50 mg tablet 50 mg PO DAILY insulin glargine [Lantus Solostar U-100 Insulin] 100 unit/mL (3 mL) insulin pen See Rx Instructions .ROUTE .COMPLEX Dose Instruction: INJECT 15 UNITS SUBCUTANEOUSLY TWICE DAILY Rx Instructions: INJECT 13 UNITS SUBCUTANEOUSLY AM 10 UNITS SQ AT BEDTIME ropinirole 0.25 mg tablet PO TID ascorbic acid (vitamin C) 100 mg tablet 100 mg PO DAILY (DME) FreeStyle Paula 3 Sensor Device See Rx Instructions .Route Qty: 1 0RF Rx Instructions: check blood sugar three times daily and prn (DME) FreeStyle Paula 3 Clio Misc See Rx Instructions .Route Qty: 1 12RF Rx Instructions: check blood sugar three times daily and prn (DME) rollater walker See Rx Instructions .Route .MEDSUPPLY Qty: 1 0RF Rx Instructions: As directed amitriptyline 10 mg tablet See Rx Instructions .ROUTE .COMPLEX Qty: 270 3RF Dose Instruction: TAKE 3 TABLETS BY MOUTH AT BEDTIME Rx Instructions: TAKE 3 TABLETS BY MOUTH AT BEDTIME estradiol 0.01 % (0.1 mg/gram) cream See Rx Instructions .ROUTE .COMPLEX Qty: 42.5 3RF Dose Instruction: USE 1 GRAM VAGINALLY THREE TIMES WEEKLY Rx Instructions: USE 1 GRAM VAGINALLY THREE TIMES WEEKLY (DME) blood-glucose meter Misc See Rx Instructions .MEDSUPPLY Qty: 1 0RF Rx Instructions: Use as directed for checking blood sugar daily (DME) Blood Glucose Test Strip See Rx Instructions .MEDSUPPLY Qty: 200 12RF Rx Instructions: Use as directed with glucometer to check blood sugar daily (DME) lancets Misc See Rx Instructions .MEDSUPPLY Qty: 200 12RF Rx Instructions: Use as directed to prick skin for blood sugar checks daily (DME) pen needle, diabetic 32 gauge x 1/4 needle See Rx Instructions .Route Qty: 100 4RF Rx Instructions: use with insulin 4 times daily insulin lispro [Humalog KwikPen Insulin] 100 unit/mL insulin pen See Rx Instructions .ROUTE .COMPLEX Qty: 15 0RF Dose Instruction: INJECT PER SLIDING SCALE SUBCUTANEOUSLY THREE TIMES DAILY. 150-200: THREE UNITS; 201-250: FIVE UNITS; 251-300: SEVEN UNITS; 301-350: 9 UNITS; 351-400: 11 UNITS Rx Instructions: INJECT PER SLIDING SCALE SUBCUTANEOUSLY THREE TIMES DAILY. 150-200: THREE UNITS; 201-250: FIVE UNITS; 251-300: SEVEN UNITS; 301-350: 9 UNITS; 351-400: 11 UNITS (DME) manual wheelchair See Rx Instructions .Route .MEDSUPPLY Qty: 1 0RF Rx Instructions: MAGI 99 (DME) 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 See Rx Instructions .Route .MEDSUPPLY Qty: 1 0RF Rx Instructions: As directed ([facility] [place] bedside cammode See Rx Instructions .Route .MEDSUPPLY Qty: 1 0RF Rx Instructions: As directed levothyroxine 100 mcg tablet 100 mcg PO DAILY Qty: 90 1RF coQ10 (ubiquinol) 200 mg Capsule 200 mg PO DAILY vitamin B complex Tablet Extended Release 1 tab PO DAILY potassium chloride 20 mEq tablet extended release 20 meq PO DAILY PRN (Reason: with torsemide) Qty: 90 3RF Rx Instructions: TAKE 1 TABLET DAILY WITH LASIX torsemide 40 mg tablet 20 mg PO DAILY PRN (Reason: weight gain of 3 lbs) Qty: 30 1RF Discharge Orders: Discharge ED (Routine); Ordered 10/26/24 Ordered By: Tarmaine Vernon Referrals: Mindy Farrar, PUMP TENDER [Primary Care Provider, Family Practice] Patient Instructions: Opioid Safety, Pain Management, Patient Portal & Trent Instructions Activity Restrictions/Additional Instructions: Thank you for choosing [facility] for your healthcare needs today. It is very important that you follow up as instructed or that you return to the Emergency Department should you have concerns or if your condition changes or worsens in any way. You are seen emergency room with low blood sugars. Blood sugar improved with IV glucose. Recommend you decrease your long-acting insulin (Lantus) to 10 units in the morning and 8 units at night. Your blood sugars will likely run a little bit high with this follow-up with your primary care doctor to review your blood sugars and make further adjustments. Print Language: Slovak Sign Out Sign Out Data: Patient Sign Out occurred on 10/26/24 at 06:36. Patient's care was discussed, and care was transferred from Willam Hopper MD to Tramaine Vernon DO. 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
[2024-10-26 06:08] LABS: Troponin 5 2HR 29.96 ng/L (0-10)
[2024-10-26 06:09] LABS: Troponin 5 2HR Delta -31.04 ABS# (0-10)
[2024-10-26 08:06] VITALS: BP 158/70; PULSE 68; RESP 16; O2SAT 98
== END 2024-10-26 08:06 | disposition home or self-care (01) ==
PROVIDERS: Emergency Medicine; Emergency Provider Family Medicine; PCP Nurse Practitioner Family
DX: E11.649 Type 2 diabetes mellitus with hypoglycemia without coma (principal); I10 Essential (primary) hypertension; R00.1 Bradycardia, unspecified; Z79.4 Long term (current) use of insulin; Z79.82 Long term (current) use of aspirin
CPT/HCPCS: 36416; 71045; 80053; 80306; 81001; 82962; 83605; 83880; 84484; 85025; 87637; 93005; 99285

== ENCOUNTER → 2024-11-20 08:38 | Outpatient (BNVA) | payer MEDICARE, SELFPAY | PROVIDERS: PCP Nurse Practitioner Family; Visit Provider Thoracic Surgery (Cardiothoracic Vascular Surgery) | DX: I96 Gangrene, not elsewhere classified (principal); I87.2 Venous insufficiency (chronic) (peripheral); L97.811 Non-pressure chronic ulcer of other part of right lower leg limited to breakdown of skin | CPT/HCPCS: 97597; 99213 ==

== ENCOUNTER → 2024-11-27 09:32 | Outpatient (BNVA) | payer MEDICARE, SELFPAY | PROVIDERS: PCP Nurse Practitioner Family; Visit Provider Thoracic Surgery (Cardiothoracic Vascular Surgery) | DX: I96 Gangrene, not elsewhere classified (principal); I87.2 Venous insufficiency (chronic) (peripheral); L97.811 Non-pressure chronic ulcer of other part of right lower leg limited to breakdown of skin; N18.4 Chronic kidney disease, stage 4 (severe) | CPT/HCPCS: 80069; 82306; 82310; 83970; 97597 ==

== ENCOUNTER → 2024-12-04 09:37 | Outpatient (BNVA) | payer MEDICARE, SELFPAY | PROVIDERS: PCP Nurse Practitioner Family; Visit Provider Thoracic Surgery (Cardiothoracic Vascular Surgery) | DX: I96 Gangrene, not elsewhere classified (principal); I87.2 Venous insufficiency (chronic) (peripheral); L97.811 Non-pressure chronic ulcer of other part of right lower leg limited to breakdown of skin | CPT/HCPCS: 97597 ==

== ENCOUNTER → 2024-12-06 09:13 | Outpatient (BNVA) | payer MEDICARE, SELFPAY | PROVIDERS: PCP Nurse Practitioner Family; Visit Provider Thoracic Surgery (Cardiothoracic Vascular Surgery) | DX: L97.811 Non-pressure chronic ulcer of other part of right lower leg limited to breakdown of skin (principal); L03.115 Cellulitis of right lower limb | CPT/HCPCS: 29581 ==

== ENCOUNTER → 2024-12-11 09:44 | Outpatient (BNVA) | payer MEDICARE, SELFPAY | PROVIDERS: PCP Nurse Practitioner Family; Visit Provider Thoracic Surgery (Cardiothoracic Vascular Surgery) | DX: I96 Gangrene, not elsewhere classified (principal); I87.2 Venous insufficiency (chronic) (peripheral); L97.811 Non-pressure chronic ulcer of other part of right lower leg limited to breakdown of skin | CPT/HCPCS: 97597; A6251 ==

== ENCOUNTER → 2024-12-18 09:46 | Outpatient (BNVA) | payer MEDICARE, SELFPAY | PROVIDERS: PCP Nurse Practitioner Family; Visit Provider Thoracic Surgery (Cardiothoracic Vascular Surgery) | DX: I96 Gangrene, not elsewhere classified (principal); I87.2 Venous insufficiency (chronic) (peripheral); L97.811 Non-pressure chronic ulcer of other part of right lower leg limited to breakdown of skin | CPT/HCPCS: 97597; A6021 ==

== ENCOUNTER → 2024-12-25 09:49 | Outpatient (BNVA) | payer MEDICARE, SELFPAY | PROVIDERS: PCP Nurse Practitioner Family; Visit Provider Thoracic Surgery (Cardiothoracic Vascular Surgery) | DX: I96 Gangrene, not elsewhere classified (principal); I87.2 Venous insufficiency (chronic) (peripheral); L97.811 Non-pressure chronic ulcer of other part of right lower leg limited to breakdown of skin | CPT/HCPCS: 97597; A6021 ==

== ENCOUNTER → 2025-01-09 08:40 | Outpatient (BNVA) | payer MEDICARE, SELFPAY | PROVIDERS: PCP Nurse Practitioner Family; Visit Provider Thoracic Surgery (Cardiothoracic Vascular Surgery) | DX: I96 Gangrene, not elsewhere classified (principal); I87.2 Venous insufficiency (chronic) (peripheral); L97.811 Non-pressure chronic ulcer of other part of right lower leg limited to breakdown of skin | CPT/HCPCS: 97597 ==

== ENCOUNTER → 2025-01-16 09:02 | Outpatient (BNVA) | payer MEDICARE, SELFPAY | PROVIDERS: PCP Nurse Practitioner Family; Visit Provider Thoracic Surgery (Cardiothoracic Vascular Surgery) | DX: I96 Gangrene, not elsewhere classified (principal); I87.2 Venous insufficiency (chronic) (peripheral); L97.811 Non-pressure chronic ulcer of other part of right lower leg limited to breakdown of skin | CPT/HCPCS: 97597 ==

== ENCOUNTER → 2025-01-23 09:50 | Outpatient (BNVA) | payer MEDICARE, SELFPAY | PROVIDERS: PCP Nurse Practitioner Family; Visit Provider Thoracic Surgery (Cardiothoracic Vascular Surgery) | DX: I96 Gangrene, not elsewhere classified (principal); I87.2 Venous insufficiency (chronic) (peripheral); L97.811 Non-pressure chronic ulcer of other part of right lower leg limited to breakdown of skin; N18.4 Chronic kidney disease, stage 4 (severe) | CPT/HCPCS: 80069; 82043; 82310; 83970; 85025; 97597; A6197; A6252 ==

== ENCOUNTER → 2025-01-29 15:00 | Outpatient (BNVA) | payer MEDICARE, SELFPAY | PROVIDERS: PCP Nurse Practitioner Family; Visit Provider Nurse Practitioner Family | DX: E11.9 Type 2 diabetes mellitus without complications (principal); Z79.4 Long term (current) use of insulin; I10 Essential (primary) hypertension | CPT/HCPCS: 80061; 83036; 84443 ==

== ENCOUNTER → 2025-01-30 08:57 | Outpatient (BNVA) | payer MEDICARE, SELFPAY | PROVIDERS: PCP Nurse Practitioner Family; Visit Provider Thoracic Surgery (Cardiothoracic Vascular Surgery) | DX: I96 Gangrene, not elsewhere classified (principal); I87.2 Venous insufficiency (chronic) (peripheral); L97.811 Non-pressure chronic ulcer of other part of right lower leg limited to breakdown of skin | CPT/HCPCS: 97597; A6252 ==

== ENCOUNTER → 2025-02-01 09:03 | Outpatient (BNVA) | payer MEDICARE, SELFPAY | PROVIDERS: PCP Nurse Practitioner Family; Visit Provider Thoracic Surgery (Cardiothoracic Vascular Surgery) | DX: I96 Gangrene, not elsewhere classified (principal); I87.2 Venous insufficiency (chronic) (peripheral); L97.811 Non-pressure chronic ulcer of other part of right lower leg limited to breakdown of skin | CPT/HCPCS: 29581; 99211 ==

== ENCOUNTER → 2025-02-05 10:28 | Outpatient (BNVA) | payer MEDICARE, SELFPAY | PROVIDERS: PCP Nurse Practitioner Family; Visit Provider Nurse Practitioner Family | DX: R53.1 Weakness (principal); K59.00 Constipation, unspecified | CPT/HCPCS: 74018; 80053; 85025 ==

== ENCOUNTER → 2025-02-06 12:55 | Outpatient (BNVA) | payer MEDICARE, SELFPAY | PROVIDERS: PCP Nurse Practitioner Family; Visit Provider Nurse Practitioner Family | DX: R53.1 Weakness (principal) | CPT/HCPCS: 81000; 82274 ==

== ENCOUNTER → 2025-02-07 13:31 | Outpatient (BNVA) | payer MEDICARE, SELFPAY | PROVIDERS: PCP Nurse Practitioner Family; Visit Provider Thoracic Surgery (Cardiothoracic Vascular Surgery) | DX: I96 Gangrene, not elsewhere classified (principal); I87.2 Venous insufficiency (chronic) (peripheral); L97.811 Non-pressure chronic ulcer of other part of right lower leg limited to breakdown of skin | CPT/HCPCS: 97597; A6021; A6252 ==

== ENCOUNTER → 2025-02-21 10:19 | Outpatient (BNVA) | payer MEDICARE, SELFPAY | PROVIDERS: PCP Nurse Practitioner Family; Visit Provider Thoracic Surgery (Cardiothoracic Vascular Surgery) | DX: I96 Gangrene, not elsewhere classified (principal); I87.2 Venous insufficiency (chronic) (peripheral); L97.811 Non-pressure chronic ulcer of other part of right lower leg limited to breakdown of skin | CPT/HCPCS: 97597; A6021; A6252 ==

== ENCOUNTER → 2025-02-28 09:59 | Outpatient (BNVA) | payer MEDICARE, SELFPAY | PROVIDERS: PCP Nurse Practitioner Family; Visit Provider Thoracic Surgery (Cardiothoracic Vascular Surgery) | DX: I96 Gangrene, not elsewhere classified (principal); I87.2 Venous insufficiency (chronic) (peripheral); L97.811 Non-pressure chronic ulcer of other part of right lower leg limited to breakdown of skin | CPT/HCPCS: 97597; A6252 ==

== ENCOUNTER → 2025-03-07 10:09 | Outpatient (BNVA) | payer MEDICARE, SELFPAY | PROVIDERS: PCP Nurse Practitioner Family; Visit Provider Thoracic Surgery (Cardiothoracic Vascular Surgery) | DX: I96 Gangrene, not elsewhere classified (principal); I87.2 Venous insufficiency (chronic) (peripheral); L97.811 Non-pressure chronic ulcer of other part of right lower leg limited to breakdown of skin | CPT/HCPCS: 97597; A6252 ==